=== PATIENT | male | born 1950 | race Asian ===

== ENCOUNTER 2017-02-23 14:59 | Emergency (ER) | payer OTHER ==
[~2017-02-23] VITALS: Ht 180.3 cm; Wt 68.0 kg
[~2017-02-23 14:59] MED LIST: ABILIFY5 MG PO; ALPHAGAN P 5 ML5 ML LEFT EYE; ARTIFICIAL TEAR1 OI1 OP; ASPIRIN81 M1 PO; BENADRYL50 MG PO; CIPRO500 MG PO; GLIPIZIDE5 M2 PO; METFORMIN500 MG PO; PHENERGAN/DEXTRO5 ML PO; RESTORIL15 MG PO; ZOLOFT20 MG/ML PO; lactinex PO
[2017-02-23 15:08] VITALS: BP 102/60
--- NOTE | 2017-02-23 15:30 | NUR ---
PATIENT PRESENTS TO ED WITH RASH TO SCALP . PT STATES DENIES PRURITUS,DRAINAGE, BLEEDING, PAIN . DENIES N/V/D; SKIN IS PINK/WARM/DRY; AAOX4 WITH EVEN AND STEADY GAIT; LUNGS CLEAR BL; HR EVEN AND REGULAR; PT DENIES ANY FEVER, CP, SOB, OR COUGH AT THIS TIME; PATIENT STATES PAIN OF 0/10 AT THIS TIME; VSS; PATIENT POSITIONED FOR COMFORT; HOB ELEVATED; BEDRAILS UP X2; BED DOWN. ER MD MADE AWARE OF PT STATUS.
--- NOTE | 2017-02-23 15:30 | NUR ---
PATIENT PRESENTS TO ED WITH RASH TO SCALP . PT STATES DENIES ITCHING BLEEDING PAIN . DENIES N/V/D; SKIN IS PINK/WARM/DRY; AAOX4 WITH EVEN AND STEADY GAIT; LUNGS CLEAR BL; HR EVEN AND REGULAR; PT DENIES ANY FEVER, CP, SOB, OR COUGH AT THIS TIME; PATIENT STATES PAIN OF 0/10 AT THIS TIME; VSS; PATIENT POSITIONED FOR COMFORT; HOB ELEVATED; BEDRAILS UP X2; BED DOWN. ER MD MADE AWARE OF PT STATUS.
--- NOTE | 2017-02-23 16:54 | NUR ---
Patient discharged with v/s stable. Written and verbal after care instructions given and explained. Patient alert, oriented and verbalized understanding of instructions. Wheel Chair Assisted with to car. All questions addressed prior to discharge. ID band removed. Patient advised to follow up with PMD. Rx of CLOTRIMAZOLE/ SELENIUM given. Patient educated on indication of medication including possible reaction and side effects. Opportunity to ask questions provided and answered. SPOKE WITH YOLIS Olocode [facility] [phone], INFORMED HER WE ARE SENDING PT BACK WITH A RX AND TO F/U WITH ADDRESS AND NUMBER PROVIDED ON DC PAPERS
[2017-02-23 16:55] VITALS: BP 123/74
== END 2017-02-23 16:54 | disposition home or self-care (01) ==
LOC: MED 14:59
DX: L98.8 Other specified disorders of the skin and subcutaneous tissue (principal); E11.9 Type 2 diabetes mellitus without complications; Z98.890 Other specified postprocedural states

== ENCOUNTER 2017-11-22 16:05 | Inpatient (IN) | payer OTHER ==
[~2017-11-22] VITALS: Ht 180.3 cm; Wt 74.8 kg
[~2017-11-22 16:05] MED LIST changes: -ABILIFY5 MG PO; -ALPHAGAN P 5 ML5 ML LEFT EYE; +ARIP5TAB8 PO; -ARTIFICIAL TEAR1 OI1 OP; +ASPI81CT89 PO; -ASPIRIN81 M1 PO; +BEN50 PO; -BENADRYL50 MG PO; +BRIM5SOL1 LEFT EYE; +CIPR500T4 PO; -CIPRO500 MG PO; +DM H5SYR PO; +GLIP5TAB13 PO; -GLIPIZIDE5 M2 PO; +GLU500 PO; -METFORMIN500 MG PO; -PHENERGAN/DEXTRO5 ML PO; -RESTORIL15 MG PO; +TEMA15CA24 PO; -ZOLOFT20 MG/ML PO; +[UNRECOGNIZED DRUG - CODE] OP; +[UNRECOGNIZED DRUG - CODE] PO
[2017-11-22 16:09] VITALS: BP 127/73
[2017-11-22] MEDS ORDERED: BRIM5SOL1 OP (16:37)
[2017-11-22] MEDS ORDERED: GLIP10TE PO (16:58)
[2017-11-22] MEDS ORDERED: GLIP5TAB4 PO (16:58)
[2017-11-22] MEDS ORDERED: FERR325E14 PO (16:58)
[2017-11-22] MEDS ORDERED: MULT-1736 PO (16:58)
[2017-11-22] MEDS ORDERED: DOCUSATE PO (16:58)
[2017-11-22] MEDS ORDERED: TIM.5OS OP (17:13)
[2017-11-22] MEDS ORDERED: KETO2CRE3 TP (17:13)
[2017-11-22] MEDS ORDERED: GLIP10TA3 PO (17:13)
[2017-11-22] MEDS ORDERED: CALC-567 PO (17:13)
[2017-11-22] MEDS ORDERED: PANT40EC28 PO (17:13)
[2017-11-22] MEDS ORDERED: SITA50TA3 PO (17:13)
[2017-11-22] MEDS ORDERED: INSU100S22 SUBQ ×2 (17:13→17:37)
[2017-11-22 17:22] LABS: ACETONE, SERUM NEGATIVE (NEGATIVE)
[2017-11-22 17:25] LABS: BASOPHILS # (AUTO) 0.1 K/uL (0.00-0.22); BASOPHILS % (AUTO) 0.6 % (0.0-2.0); EOSINOPHILS % (AUTO) 0.1 % (0.0-4.0); HEMATOCRIT 44.4 % (36-52); HEMOGLOBIN 14.5 g/dL (12.0-18.0); LYMPHOCYTES # (AUTO) 0.8 K/uL (2.0-11.5); LYMPHOCYTES % (AUTO) 5.9 % (20.5-51.1); MEAN CORPUSCULAR HEMOGLOBIN 26 pg (27-31); MEAN CORPUSCULAR HGB CONC 33 g/dL (33-37); MEAN CORPUSCULAR VOLUME 80 fL (80-94); MONOCYTES % (AUTO) 7.6 % (1.7-9.3); NEUTROPHILS # (AUTO) 10.9 K/uL (1.8-7.7); NEUTROPHILS % (AUTO) 85.8 % (42.2-75.2); PLATELET COUNT (AUTO) 213 K/uL (140-450); RED BLOOD CELL COUNT(AUTO) 5.57 MIL/uL (4.20-6.10); RED CELL DISTRIBUTION WIDTH 12.3 % (11.6-13.7); WHITE BLOOD COUNT (AUTO) 12.8 K/uL (4.8-10.8)
[2017-11-22 17:30] LABS: LIPASE 120 U/L (73-393)
[2017-11-22 17:33] LABS: ALBUMIN 3.6 g/dL (3.4-5.0); ANION GAP 14.4 (8-16); CARBON DIOXIDE 24.1 mmol/L (21-32); CREATININE 2.1 mg/dL (0.7-1.3); POTASSIUM 4.5 mmol/L (3.5-5.1); TOTAL BILIRUBIN 0.9 mg/dL (0.0-1.0)
[2017-11-22] MEDS ORDERED: BACTO TP (17:50)
[2017-11-22] MEDS ORDERED: INSULIN REGULAR, HUMAN 100 UNIT/ML VIAL SUBQ ONE (17:55)
[2017-11-22] MEDS ORDERED: [UNRECOGNIZED DRUG - CODE] TP (17:55)
[2017-11-22] MEDS ORDERED: TAMS0.4C96 PO (17:55)
[2017-11-22] MEDS ORDERED: BIMA2.5S3 OP (17:55)
[2017-11-22] MEDS ORDERED: ACET-7568 PO (17:55)
[2017-11-22] MEDS ORDERED: LOTC TP (17:56)
[2017-11-22] MEDS ORDERED: ACETAMINOPHEN 325 MG TAB PO PRN (18:20)
[2017-11-22] MEDS ORDERED: ONDANSETRON 4 MG/2 ML VIAL IVP PRN (18:20)
[2017-11-22] MEDS ORDERED: ALBUTEROL SULFATE/IPRATROPIU 3 ML SOL IH PRN (18:20)
[2017-11-22] MEDS ORDERED: HYDROcodone/APAP 7.5/325 MG 1 TAB PO PRN (18:20)
[2017-11-22] MEDS ORDERED: DEXTROSE 50% 50 ML SYR IVP PRN (18:20)
[2017-11-22] MEDS ORDERED: LEVOFLOXACIN 750 MG/D5W PREMIX 150 ML IV SCH (18:30)
[2017-11-22] MEDS ORDERED: CLINDAMYCIN 600 MG in DEXTROSE 5% 50 ML IV SCH (18:30)
[2017-11-22 18:50] LABS: APPEARANCE,URINE HAZY (CLEAR); BILIRUBIN,URINE NEGATIVE (NEGATIVE); BLOOD, URINE 2+ (NEGATIVE); COLOR,URINE YELLOW (YELLOW); LEUKOCYTE ESTERASE ,URINE NEGATIVE (NEGATIVE); NITRITE, URINE NEGATIVE (NEGATIVE); UGLUCOSE 3+ (NEGATIVE)
[2017-11-22 19:13] LABS: RBC,URINE 3-10 (FEW) /HPF (0-5)
[2017-11-22 19:33] LABS: PROTHROMBIN TIME 10.2 secs (10.8-13.4)
[2017-11-22 19:45] VITALS: BP 131/65
[2017-11-22 20:00] LABS: FREE T4 (FREE THYROXINE) 1.15 ng/dL (0.76-1.46); MAGNESIUM 2.2 mg/dL (1.8-2.4); THYROID STIMULATING HORMONE 4.01 uIU/mL (0.34-3.74)
[2017-11-22] MEDS: ALBUTEROL SULFATE/IPRATROPIU 3 ML SOL IH SCH (20:24)
[2017-11-22] MEDS ORDERED: CLINDAMYCIN 600 MG/4 ML VIAL ONE (20:28)
[2017-11-22] MEDS: NACL 0.9% 1,000 ML IV SCH (20:30)
[2017-11-22 20:55] LABS: ANION GAP 12.4 (8-16); CARBON DIOXIDE 24.9 mmol/L (21-32); CREATININE 2.1 mg/dL (0.7-1.3); POTASSIUM 4.3 mmol/L (3.5-5.1)
[2017-11-22] MEDS: INSULIN LISPRO SLIDING SCALE 100 UNITS/ML VIAL SUBQ PRN ×2 (21:23→23:00)
[2017-11-22] MEDS: BLOOD GLUCOSE MONITORING 1 DEV DEV FS SCH (21:24)
[2017-11-22] MEDS: DOCUSATE SODIUM 100 MG GELCAP PO SCH (21:25)
[2017-11-23] VITALS: BP 115/55
[2017-11-23] MEDS ORDERED: ACETAMINOPHEN 325 MG TAB PO PRN (00:10)
[2017-11-23] MEDS ORDERED: diphenhydrAMINE 50 MG CAP PO SCH (00:10)
[2017-11-23 04:00] VITALS: BP 112/58
[2017-11-23] MEDS ORDERED: CLINDAMYCIN 600 MG/4 ML VIAL ONE (04:54)
[2017-11-23] MEDS: CLINDAMYCIN 600 MG in DEXTROSE 5% 50 ML IV SCH ×3 (05:05→21:22)
[2017-11-23] MEDS: BLOOD GLUCOSE MONITORING 1 DEV DEV FS SCH ×4 (05:56→21:32)
[2017-11-23 07:00] LABS: BASOPHILS # (AUTO) 0.1 K/uL (0.00-0.22); BASOPHILS % (AUTO) 1.5 % (0.0-2.0); EOSINOPHILS % (AUTO) 0.3 % (0.0-4.0); HEMATOCRIT 41.3 % (36-52); HEMOGLOBIN 13.4 g/dL (12.0-18.0); LYMPHOCYTES # (AUTO) 0.6 K/uL (2.0-11.5); LYMPHOCYTES % (AUTO) 11.7 % (20.5-51.1); MEAN CORPUSCULAR HEMOGLOBIN 26 pg (27-31); MEAN CORPUSCULAR HGB CONC 33 g/dL (33-37); MEAN CORPUSCULAR VOLUME 81 fL (80-94); MONOCYTES # (AUTO) 0.5 K/uL (0.8-1.0); MONOCYTES % (AUTO) 9.7 % (1.7-9.3); NEUTROPHILS % (AUTO) 76.8 % (42.2-75.2); PLATELET COUNT (AUTO) 196 K/uL (140-450); RED BLOOD CELL COUNT(AUTO) 5.08 MIL/uL (4.20-6.10); RED CELL DISTRIBUTION WIDTH 12.2 % (11.6-13.7); WHITE BLOOD COUNT (AUTO) 5.2 K/uL (4.8-10.8)
[2017-11-23 07:26] LABS: ANION GAP 13.3 (8-16); CARBON DIOXIDE 22.7 mmol/L (21-32)
[2017-11-23 07:34] LABS: PHOSPHORUS 2.6 mg/dL (2.5-4.9)
[2017-11-23] MEDS: ALBUTEROL SULFATE/IPRATROPIU 3 ML SOL IH SCH ×3 (07:50→20:02)
[2017-11-23 08:00] VITALS: BP 121/80
[2017-11-23] MEDS ORDERED: KETOCONAZOLE 2% 15 GM TUBE TP SCH (09:00)
[2017-11-23] MEDS ORDERED: CLOTRIMAZOLE 1% 30 GM CRM TUBE TP SCH (09:00)
[2017-11-23] MEDS ORDERED: PETROLATUM OP SCH (09:00)
[2017-11-23] MEDS ORDERED: SERTRALINE 50 MG TAB PO SCH (09:00)
[2017-11-23] MEDS ORDERED: NON-FORMULARY ITEM (Calcium Carbonate/Vitamin D3 (Oyster Shell Calcium-Vit D Tab) 1 TAB) PO SCH (09:00)
[2017-11-23] MEDS ORDERED: metFORMIN 500 MG TAB PO SCH (09:00)
[2017-11-23] MEDS ORDERED: MINERAL OIL OP SCH (09:00)
[2017-11-23] MEDS ORDERED: KETOCONAZOLE TP SCH (09:00)
[2017-11-23] MEDS ORDERED: LANOLIN OP SCH (09:00)
[2017-11-23] MEDS: DOCUSATE SODIUM 100 MG GELCAP PO SCH ×2 (09:00→09:27)
[2017-11-23] MEDS ORDERED: glipiZIDE 10 MG TAB PO SCH (09:00)
[2017-11-23] MEDS ORDERED: glipiZIDE 5 MG TAB PO SCH (09:00)
[2017-11-23] MEDS: TIMOLOL OP 0.5% 5 ML BTL OP SCH ×2 (09:26→21:45)
[2017-11-23] MEDS: ARIPiprazole 10 MG TAB PO SCH (09:26)
[2017-11-23] MEDS: PANTOPRAZOLE 40 MG TABEC PO SCH (09:26)
[2017-11-23] MEDS: LACTOBACILLUS RHAMNOSUS GG 1 EACH CAP PO SCH (09:27)
[2017-11-23] MEDS: MULTIVITAMIN/MINERALS 1 TAB PO SCH (09:27)
[2017-11-23] MEDS: FERROUS SULFATE 325 MG TABEC PO SCH (09:27)
[2017-11-23] MEDS: ATORVASTATIN 20 MG TAB PO SCH (09:27)
[2017-11-23] MEDS: NACL 0.9% 1,000 ML IV SCH ×2 (09:34→16:22)
[2017-11-23] MEDS: ASPIRIN 81 MG TAB.CHEW PO SCH (09:34)
[2017-11-23] MEDS: MUPIROCIN 2% OINT 22 GM TUBE TP SCH ×2 (10:20→21:26)
[2017-11-23] MEDS ORDERED: CALCIUM CARB/VIT-D 500 MG/200 IU 1 TAB PO SCH (11:00)
[2017-11-23 12:00] VITALS: BP 115/56
[2017-11-23] MEDS: INSULIN LISPRO SLIDING SCALE 100 UNITS/ML VIAL SUBQ PRN ×3 (12:42→21:37)
[2017-11-23] MEDS: CLOTRIMAZOLE 1% 30 GM CRM TUBE TP SCH ×2 (14:08→21:27)
[2017-11-23] MEDS: ARTIFICIAL TEARS OPHTH OINT 3.5 GM TUBE OP SCH ×3 (14:09→21:24)
[2017-11-23 16:00] VITALS: BP 120/63
[2017-11-23] MEDS ORDERED: ARTIFICIAL TEARS OPHTH OINT 3.5 GM TUBE BOTH EYES SCH (17:00)
[2017-11-23 20:00] VITALS: BP_SYST 141; BP_DIAS 141; BP_DIAS 73
[2017-11-23] MEDS ORDERED: TIMOLOL OP 0.5% 5 ML BTL LEFT EYE SCH (21:00)
[2017-11-23] MEDS ORDERED: BIMATOPROST OP SCH (21:00)
[2017-11-23] MEDS: TAMSULOSIN 0.4 MG CAP PO SCH (21:27)
[2017-11-23] MEDS: LATANOPROST 0.005% OP 2.5 ML BTL OP SCH (21:46)
[2017-11-24] VITALS: BP 134/73
[2017-11-24] MEDS: NACL 0.9% 1,000 ML IV SCH ×4 (00:59→18:08)
[2017-11-24 04:00] VITALS: BP 139/89
[2017-11-24] MEDS: CLINDAMYCIN 600 MG in DEXTROSE 5% 50 ML IV SCH ×3 (04:32→21:36)
[2017-11-24] MEDS: BLOOD GLUCOSE MONITORING 1 DEV DEV FS SCH ×4 (06:23→21:45)
[2017-11-24] MEDS: INSULIN LISPRO SLIDING SCALE 100 UNITS/ML VIAL SUBQ PRN ×3 (06:25→17:28)
[2017-11-24 06:53] LABS: BASOPHILS # (AUTO) 0.1 K/uL (0.00-0.22); BASOPHILS % (AUTO) 0.9 % (0.0-2.0); EOSINOPHILS # (AUTO) 0.2 K/uL (0-0.4); EOSINOPHILS % (AUTO) 2.4 % (0.0-4.0); HEMATOCRIT 39.4 % (36-52); HEMOGLOBIN 12.8 g/dL (12.0-18.0); LYMPHOCYTES # (AUTO) 0.8 K/uL (2.0-11.5); LYMPHOCYTES % (AUTO) 12.4 % (20.5-51.1); MEAN CORPUSCULAR HEMOGLOBIN 27 pg (27-31); MEAN CORPUSCULAR HGB CONC 33 g/dL (33-37); MEAN CORPUSCULAR VOLUME 82 fL (80-94); MONOCYTES # (AUTO) 0.6 K/uL (0.8-1.0); MONOCYTES % (AUTO) 9.1 % (1.7-9.3); NEUTROPHILS % (AUTO) 75.2 % (42.2-75.2); PLATELET COUNT (AUTO) 181 K/uL (140-450); RED BLOOD CELL COUNT(AUTO) 4.83 MIL/uL (4.20-6.10); RED CELL DISTRIBUTION WIDTH 12.7 % (11.6-13.7); WHITE BLOOD COUNT (AUTO) 6.7 K/uL (4.8-10.8)
[2017-11-24] MEDS: ALBUTEROL SULFATE/IPRATROPIU 3 ML SOL IH SCH ×3 (07:19→19:51)
[2017-11-24 07:23] LABS: CARBON DIOXIDE 23.9 mmol/L (21-32); CREATININE 1.1 mg/dL (0.7-1.3); POTASSIUM 3.9 mmol/L (3.5-5.1)
[2017-11-24 07:30] LABS: MAGNESIUM 1.8 mg/dL (1.8-2.4); PHOSPHORUS 2.6 mg/dL (2.5-4.9)
[2017-11-24 08:07] VITALS: BP 125/62
[2017-11-24] MEDS: LACTOBACILLUS RHAMNOSUS GG 1 EACH CAP PO SCH (08:42)
[2017-11-24] MEDS: DOCUSATE SODIUM 100 MG GELCAP PO SCH (08:42)
[2017-11-24] MEDS: ATORVASTATIN 20 MG TAB PO SCH (08:42)
[2017-11-24] MEDS: FERROUS SULFATE 325 MG TABEC PO SCH (08:42)
[2017-11-24] MEDS: CLOTRIMAZOLE 1% 30 GM CRM TUBE TP SCH ×3 (08:43→21:13)
[2017-11-24] MEDS: MULTIVITAMIN/MINERALS 1 TAB PO SCH (08:43)
[2017-11-24] MEDS: PANTOPRAZOLE 40 MG TABEC PO SCH (08:43)
[2017-11-24] MEDS: MUPIROCIN 2% OINT 22 GM TUBE TP SCH ×3 (08:43→21:13)
[2017-11-24] MEDS: CALCIUM CARB/VIT-D 500 MG/200 IU 1 TAB PO SCH (08:43)
[2017-11-24] MEDS: ARIPiprazole 10 MG TAB PO SCH (08:44)
[2017-11-24] MEDS: ASPIRIN 81 MG TAB.CHEW PO SCH (08:44)
[2017-11-24] MEDS: ARTIFICIAL TEARS OPHTH OINT 3.5 GM TUBE OP SCH ×5 (08:44→21:12)
[2017-11-24] MEDS: TIMOLOL OP 0.5% 5 ML BTL OP SCH ×3 (08:45→21:11)
[2017-11-24] MEDS ORDERED: HYDRAGUARD CREAM TP PRN (09:35)
[2017-11-24 12:00] VITALS: BP 151/78
[2017-11-24] MEDS: BRIMONIDINE TARTRATE 0.2% OP 5 ML BTL OP SCH ×3 (13:40→21:11)
[2017-11-24 16:00] VITALS: BP 124/61
[2017-11-24] MEDS: guaiFENesin/CODEINE 100/10MG 5 ML UDC PO PRN (17:25)
[2017-11-24] MEDS ORDERED: LEVOFLOXACIN 750 MG/D5W PREMIX 150 ML IV SCH (18:00)
[2017-11-24 20:00] VITALS: BP 105/58
[2017-11-24] MEDS: TAMSULOSIN 0.4 MG CAP PO SCH ×2 (21:00→21:10)
[2017-11-24] MEDS: LATANOPROST 0.005% OP 2.5 ML BTL OP SCH (21:00)
[2017-11-25] VITALS: BP 139/55
[2017-11-25] MEDS: NACL 0.9% 1,000 ML IV SCH ×2 (02:21→05:15)
[2017-11-25 04:00] VITALS: BP 138/67
[2017-11-25] MEDS: CLINDAMYCIN 600 MG in DEXTROSE 5% 50 ML IV SCH ×2 (04:58→13:00)
[2017-11-25] MEDS: guaiFENesin/CODEINE 100/10MG 5 ML UDC PO PRN ×2 (05:38→11:58)
[2017-11-25] MEDS: BRIMONIDINE TARTRATE 0.2% OP 5 ML BTL OP SCH ×2 (05:39→13:58)
[2017-11-25] MEDS: BLOOD GLUCOSE MONITORING 1 DEV DEV FS SCH ×3 (06:27→16:41)
[2017-11-25] MEDS: INSULIN LISPRO SLIDING SCALE 100 UNITS/ML VIAL SUBQ PRN ×2 (06:31→12:02)
[2017-11-25] MEDS: ALBUTEROL SULFATE/IPRATROPIU 3 ML SOL IH SCH ×3 (06:59→19:10)
[2017-11-25 07:17] LABS: BASOPHILS % (AUTO) 0.8 % (0.0-2.0); EOSINOPHILS # (AUTO) 0.3 K/uL (0-0.4); EOSINOPHILS % (AUTO) 5.4 % (0.0-4.0); HEMATOCRIT 39.1 % (36-52); HEMOGLOBIN 12.8 g/dL (12.0-18.0); LYMPHOCYTES # (AUTO) 0.7 K/uL (2.0-11.5); MEAN CORPUSCULAR HEMOGLOBIN 26 pg (27-31); MEAN CORPUSCULAR HGB CONC 33 g/dL (33-37); MEAN CORPUSCULAR VOLUME 80 fL (80-94); MONOCYTES # (AUTO) 0.6 K/uL (0.8-1.0); MONOCYTES % (AUTO) 9.4 % (1.7-9.3); NEUTROPHILS # (AUTO) 4.3 K/uL (1.8-7.7); NEUTROPHILS % (AUTO) 73.4 % (42.2-75.2); PLATELET COUNT (AUTO) 189 K/uL (140-450); RED BLOOD CELL COUNT(AUTO) 4.89 MIL/uL (4.20-6.10); RED CELL DISTRIBUTION WIDTH 12.2 % (11.6-13.7); WHITE BLOOD COUNT (AUTO) 5.9 K/uL (4.8-10.8)
[2017-11-25 07:33] LABS: ANION GAP 14.9 (8-16); CARBON DIOXIDE 21.8 mmol/L (21-32); POTASSIUM 3.7 mmol/L (3.5-5.1)
[2017-11-25 07:38] LABS: MAGNESIUM 1.5 mg/dL (1.8-2.4); PHOSPHORUS 2.4 mg/dL (2.5-4.9)
[2017-11-25 08:00] VITALS: BP 122/60
[2017-11-25] MEDS: DOCUSATE SODIUM 100 MG GELCAP PO SCH (09:00)
[2017-11-25] MEDS: INSULIN LANTUS 100 UNITS/ML 10 ML VIAL SUBQ SCH ×2 (09:00→10:01)
[2017-11-25] MEDS: ATORVASTATIN 20 MG TAB PO SCH (09:47)
[2017-11-25] MEDS: LACTOBACILLUS RHAMNOSUS GG 1 EACH CAP PO SCH (09:47)
[2017-11-25] MEDS: PANTOPRAZOLE 40 MG TABEC PO SCH (09:48)
[2017-11-25] MEDS: ARIPiprazole 10 MG TAB PO SCH (09:48)
[2017-11-25] MEDS: FERROUS SULFATE 325 MG TABEC PO SCH (09:48)
[2017-11-25] MEDS: MULTIVITAMIN/MINERALS 1 TAB PO SCH (09:48)
[2017-11-25] MEDS: ASPIRIN 81 MG TAB.CHEW PO SCH (09:48)
[2017-11-25] MEDS: CALCIUM CARB/VIT-D 500 MG/200 IU 1 TAB PO SCH (09:48)
[2017-11-25] MEDS: TIMOLOL OP 0.5% 5 ML BTL OP SCH (09:50)
[2017-11-25] MEDS: CLOTRIMAZOLE 1% 30 GM CRM TUBE TP SCH (09:51)
[2017-11-25] MEDS: ARTIFICIAL TEARS OPHTH OINT 3.5 GM TUBE OP SCH ×3 (09:51→16:56)
[2017-11-25] MEDS: MUPIROCIN 2% OINT 22 GM TUBE TP SCH (09:53)
[2017-11-25 12:00] VITALS: BP 152/85
[2017-11-25] MEDS ORDERED: ASCO1CAP75 PO (13:47)
[2017-11-25] MEDS ORDERED: CLIN300C2 PO (13:47)
[2017-11-25] MEDS ORDERED: LEVO750T2 PO (13:47)
[2017-11-25] MEDS ORDERED: INSU100S22 SUBQ (13:47)
[2017-11-25] MEDS ORDERED: ONDA4TAB PO (13:49)
[2017-11-25] MEDS ORDERED: PHE6.25L PO (13:52)
[2017-11-25 16:00] VITALS: BP 115/56
[2017-11-25] MEDS ORDERED: INSULIN LANTUS 100 UNITS/ML 10 ML VIAL SUBQ SCH (21:00)
== END 2017-11-25 20:40 | disposition home or self-care (01) | DRG 871 ==
LOC: MED 16:05 → MTU 18:26
PROVIDERS: ADMIT Family Medicine; ATTEND Family Medicine
DX: A41.9 Sepsis, unspecified organism (principal); J69.0 Pneumonitis due to inhalation of food and vomit; N17.0 Acute kidney failure with tubular necrosis; J96.21 Acute and chronic respiratory failure with hypoxia; D68.59 Other primary thrombophilia; E11.21 Type 2 diabetes mellitus with diabetic nephropathy; E11.51 Type 2 diabetes mellitus with diabetic peripheral angiopathy without gangrene; E87.1 Hypo-osmolality and hyponatremia; E11.65 Type 2 diabetes mellitus with hyperglycemia; G90.9 Disorder of the autonomic nervous system, unspecified; E78.5 Hyperlipidemia, unspecified; E86.0 Dehydration; G90.8 Other disorders of autonomic nervous system; R19.7 Diarrhea, unspecified; R26.9 Unspecified abnormalities of gait and mobility; F03.90 Unspecified dementia, unspecified severity, without behavioral disturbance, psychotic disturbance, mood disturbance, and anxiety; H40.9 Unspecified glaucoma; H54.8 Legal blindness, as defined in USA; I10 Essential (primary) hypertension; Z89.511 Acquired absence of right leg below knee; Z79.82 Long term (current) use of aspirin; Z79.899 Other long term (current) drug therapy; Z88.1 Allergy status to other antibiotic agents; Z88.0 Allergy status to penicillin; Z88.8 Allergy status to other drugs, medicaments and biological substances
CPT/HCPCS: 36415; 70450; 71045; 80048; 80053; 81001; 82009; 82150; 82948; 83036; 83605; 83690; 83735; 83880; 84100; 84439; 84443; 84484; 85025; 85610; 85730; 87040; 87081; 87086; 92610; 93005; 93880; 93925; 93970; 94640; 97799; 99285; C1758; J1815; J1956; J2405; J3490; J7030; J7060; J7620; Q0092

== ENCOUNTER 2018-01-12 14:29 | Emergency (ER) | payer OTHER ==
[~2018-01-12] VITALS: Ht 172.7 cm; Wt 77.1 kg
[~2018-01-12 14:29] MED LIST changes: +ACET-7568 PO; +ASCO1CAP75 PO; +BIMA2.5S3 OP; -BRIM5SOL1 LEFT EYE; +BRIM5SOL1 OP; +CALC-567 PO; -CIPR500T4 PO; +CLIN300C2 PO; -DM H5SYR PO; +DOCUSATE PO; +FERR325E14 PO; +GLIP10TA3 PO; -GLIP5TAB13 PO; +GLIP5TAB4 PO; +INSU100S22 SUBQ; +KETO2CRE3 TP; +LEVO750T2 PO; +LOTC TP; +MULT-1736 PO; +PANT40EC28 PO; +PHE6.25L PO; +SITA50TA3 PO; +TAMS0.4C96 PO; -TEMA15CA24 PO; +TIM.5OS OP; +[UNRECOGNIZED DRUG - CODE] TP; -lactinex PO
[2018-01-12 14:32] VITALS: BP 157/8
[2018-01-12 15:03] VITALS: BP 153/92
== END 2018-01-12 15:07 | disposition home or self-care (01) ==
LOC: MED 14:29
DX: B35.0 Tinea barbae and tinea capitis (principal); E11.9 Type 2 diabetes mellitus without complications; I10 Essential (primary) hypertension; Z88.0 Allergy status to penicillin; Z88.1 Allergy status to other antibiotic agents; Z88.8 Allergy status to other drugs, medicaments and biological substances
CPT/HCPCS: 99283

== ENCOUNTER 2018-03-20 08:26 | Inpatient (IN) | payer OTHER ==
[~2018-03-20] VITALS: Ht 170.2 cm; Wt 82.6 kg
--- NOTE | 2018-03-20 08:26 | NUR ---
Patient TORRES MESSER from [facility], transferred to bed 7. RN evaluatng patient at bedside.
[2018-03-20 08:28] VITALS: BP 119/56
--- NOTE | 2018-03-20 08:38 | NUR ---
Dr. Cervantes evaluating patient at bedside.
[2018-03-20] MEDS ORDERED: NACL 0.9% 1,000 ML IV ONE (08:40)
[2018-03-20] MEDS ORDERED: ACET-7568 PO (08:56)
--- NOTE | 2018-03-20 09:00 | NUR ---
TALKED TO TYLOR HENDERSON, PER RN PT FOUND NEXT TO THE NIGHT STAND S/P UNOBSERVED FALL WITH ALOC, DENIES ALOC, N/V/D OR FEVER; PT WAS USUALLY ALERT PER STAFF; DR ALVAREZ NOTIFIED
--- NOTE | 2018-03-20 09:00 | NUR ---
67YO M BIBA FOR ALOC FROM [facility]. PER EMS PT EAS FOUND ALTERED ON FLOOR WITH HEAD ON NIGHTSTAND. PT BACELINE IS AAOX4. ALERT. PT NON VERBAL AT THIS TIME. SCALING NOTED TO SCALP WITH SCALP IRRITATION. NO LACERATONS, HEMATOMA , OR BLEEDING. BLIND IN RIGHT EYE. L PUPIL PERRLA 3MM. PAIN 0/10, RR SHALLOW, EVEN AND UNLABORED, LS CLEAR WITH LEFT BACE DEMINISHED. O2 SAT AT AT 88% RA TO 95% 2L/MIN O2 VIA N/C. BS ACTIVE X4. PT INCONTINENT WITH BREIF ON. R BKA. PT WITH ESCORIATION TO THE LLE. ER MD MADE AWARE. WILL CONTINUE TO MONITIOR.
--- NOTE | 2018-03-20 09:15 | NUR ---
PT BACK FROM CT, IN NO APPEARENT DISTRESS, MONITORS REAPPLIED, O2 AT 2L/MIN. O2 SAT AT 94%
[2018-03-20] MEDS ORDERED: [UNRECOGNIZED DRUG - CODE] PO (09:16)
--- NOTE | 2018-03-20 09:17 | NUR ---
LAB AT BED SIDE
[2018-03-20] MEDS ORDERED: LEVEMIR SUBQ (09:18)
[2018-03-20] MEDS ORDERED: BACTO TP (09:19)
[2018-03-20] MEDS ORDERED: NYST1CRE8 TP (09:21)
--- NOTE | 2018-03-20 09:29 | NUR ---
PT IS AWAKE AND ALERT TO PLACE AND SELF. PT ASKING FOR OATMEAL.
[2018-03-20 09:32] LABS: HEMATOCRIT 40.1 % (36-52); HEMOGLOBIN 13.4 g/dL (12.0-18.0); MEAN CORPUSCULAR HEMOGLOBIN 26 pg (27-31); MEAN CORPUSCULAR HGB CONC 34 g/dL (33-37); MEAN CORPUSCULAR VOLUME 76.3 fL (80-94); PLATELET COUNT (AUTO) 345 K/uL (140-450); RED BLOOD CELL COUNT(AUTO) 5.26 MIL/uL (4.20-6.10); WHITE BLOOD COUNT (AUTO) 20.2 K/uL (4.8-10.8)
[2018-03-20] MEDS ORDERED: LEVOFLOXACIN 500 MG/D5W PREMIX 100 ML IV ONE (10:10)
--- NOTE | 2018-03-20 10:10 | NUR ---
PER DR ALVAREZ # 14 FR Urinary catheter inserted utilizing sterile technique. Immediate return of 150 ml JORY SLIGHTLY CLOUDY urine noted. Urine sample collected and sent to lab. Pt tolerated procedure WELL. DONE BY GILMER STUDENT WITH RN AT BEDSIDE.
[2018-03-20 10:15] LABS: LYMPHOCYTES % (MANUAL) 6 % (20-46); METAMYELOCYTES % 1 % (0-0); MONOCYTES % (MANUAL) 5 % (5-12); MYELOCYTES % 1 % (0-0)
[2018-03-20 10:16] LABS: ANION GAP 12.8 (8-16); CARBON DIOXIDE 26.3 mmol/L (21-32); CREATININE 1.4 mg/dL (0.7-1.3); POTASSIUM 4.1 mmol/L (3.5-5.1)
[2018-03-20 10:22] LABS: ALBUMIN 2.8 g/dL (3.4-5.0); TOTAL BILIRUBIN 0.8 mg/dL (0.0-1.0)
[2018-03-20 10:28] LABS: PROTHROMBIN TIME 10.5 secs (10.8-13.4)
[2018-03-20 10:35] LABS: APPEARANCE,URINE CLEAR (CLEAR); BILIRUBIN,URINE NEGATIVE (NEGATIVE); BLOOD, URINE 3+ (NEGATIVE); COLOR,URINE YELLOW (YELLOW); NITRITE, URINE NEGATIVE (NEGATIVE); UGLUCOSE 3+ (NEGATIVE)
[2018-03-20 10:42] LABS: RBC,URINE 20-50 /HPF (0-5)
[2018-03-20 10:44] LABS: LEUKOCYTE ESTERASE ,URINE TRACE (NEGATIVE)
[2018-03-20] MEDS ORDERED: INSULIN REGULAR, HUMAN 100 UNIT/ML VIAL IVP ONE (10:55)
--- NOTE | 2018-03-20 10:58 | NUR ---
PT PROVIDED WATER.
[2018-03-20] MEDS ORDERED: MORPHINE SULFATE 2 MG/ML SYR IVP PRN (11:30)
[2018-03-20] MEDS ORDERED: HYDROcodone/APAP 5/325 MG 1 TAB TAB PO PRN (11:30)
[2018-03-20] MEDS ORDERED: ONDANSETRON 4 MG/2 ML VIAL IM/IVP PRN (11:30)
[2018-03-20] MEDS ORDERED: DOCUSATE SODIUM 100 MG GELCAP PO PRN (11:30)
[2018-03-20] MEDS ORDERED: ALBUTEROL SULFATE/IPRATROPIU 3 ML SOL INH PRN (12:10)
[2018-03-20 12:17] LABS: CHOL/HDL RATIO 2.9 (1-4.5); MAGNESIUM 1.8 mg/dL (1.8-2.4); PHOSPHORUS 2.2 mg/dL (2.5-4.9); THYROID STIMULATING HORMONE 2.84 uIU/mL (0.34-3.74)
[2018-03-20] MEDS ORDERED: DEXTROSE 50% 50 ML SYR IVP PRN (12:25)
--- NOTE | 2018-03-20 12:30 | NUR ---
PT PROVIDED FOOD AND ASSISTED WITH EATING
[2018-03-20 12:50] VITALS: BP 137/71
[2018-03-20] MEDS ORDERED: NACL 0.9% 500 ML IV ONE (12:50)
--- NOTE | 2018-03-20 12:50 | NUR ---
RECEIVED PATIENT FROM ER VIA BED/GURNEY, TRANSFERRED PATIENT TO [facility] BED SAFELY. NO DISTRESS NOTED. DENIES ANY PAIN. RESPIRATIONS EVEN, UNLABORED, ON O2 2L/MIN VIA NC. V/S STABLE. AAOX2, CALM, COOPERATIVE, SKIN COLOR APPROPRIATE TO ETHNICITY, WARM TO TOUCH. IV SITE INTACT, PATENT AND STARTED ON IVF INFUSION PER MD ORDERS. ABDOMEN SOFT, NON-DISTENDED. LUNGS CTA ON ALL LOBES. HAS SKIN EXCORIATION ON LEFT LE, RIGHT MID BACK, AND RIGHT ELBOW. HAS SKIN REDNESS ON COCCYX. PICTURES ALREADY TAKEN BY ER NURSE. ORIENTED PATIENT TO ROOM AND CALL LIGHT. REVIEWED PLAN OF CARE WITH PATIENT. PATIENT VERBALIZED UNDERSTANDING, REINFORCEMENT NEEDED. SAFETY MEASURES IN PLACE, CALL LIGHT WITHIN REACH. WILL CONTINUE TO MONITOR.
[2018-03-20] MEDS ORDERED: ARIPiprazole 10 MG TAB PO SCH (12:55)
[2018-03-20] MEDS ORDERED: PANTOPRAZOLE 40 MG TABEC PO SCH (12:57)
[2018-03-20] MEDS ORDERED: PIPERACILLIN/TAZOBACTAM 3.375 GM in DEXTROSE 5% 50 ML IV SCH (13:00)
[2018-03-20] MEDS: ALBUTEROL SULFATE/IPRATROPIU 3 ML SOL IH SCH ×2 (13:00→19:48)
[2018-03-20] MEDS: NACL 0.9% 1,000 ML IV SCH ×2 (13:15→20:35)
--- NOTE | 2018-03-20 13:50 | NUR ---
Patient will be admitted to care of DR OJEDA. Admited to TELE. Will go to room 107B. Belongings list completed. Report to REGINE BELL .
--- NOTE | 2018-03-20 14:55 | NUR ---
PATIENT IS RESTING IN BED, NO COMPLAINTS OF PAIN. ALL SAFETY MEASURES IN PLACE. WILL CONTINUE TO MONITOR.
[2018-03-20 16:00] VITALS: BP 133/67
[2018-03-20] MEDS: BLOOD GLUCOSE MONITORING 1 DEV DEV FS SCH ×2 (16:30→20:33)
--- NOTE | 2018-03-20 16:30 | NUR ---
BLOOD GLUCOSE WAS 346. ADMINISTERED 4 UNITS OF HUMALOG. WILL CONTINUE TO MONITOR.
[2018-03-20] MEDS: INSULIN LISPRO SLIDING SCALE 100 UNITS/ML VIAL SUBQ PRN ×2 (17:31→20:32)
--- NOTE | 2018-03-20 19:05 | NUR ---
ENDORSED PLAN OF CARE TO LOOM MECHANIC RN. PATIENT IS IN STABLE CONDITION.
--- NOTE | 2018-03-20 19:06 | NUR ---
RECEIVED PATIENT FROM DAY SHIFT NURSE REGINE-ARABELLA. AAOX2, CALM, COOPERATIVE. ON 2L/NC. IV RIGHT WRIST #2OG-INTACT AND INFUSING WELL. HAS SKIN EXCORIATION ON LEFT LE, RIGHT MID BACK, AND RIGHT ELBOW. HAS SKIN REDNESS ON COCCYX. DISCUSSED PLAN OF CARE AND PATIENT VERBALIZED UNDERSTANDING, REINFORCEMENT NEEDED. BED IN LOWEST POSITION, BED BEAKS ON, BED ALARM ON. BED SIDE TABLE AND CALL LIGHT WITHIN REACH. WILL CONTINUE TO MONITOR.
[2018-03-20 20:00] VITALS: BP 119/64
--- NOTE | 2018-03-20 20:00 | NUR ---
VITAL SIGNS TAKEN AND TOLERATED WELL. BLOOD GLUCOSE 339-INSULIN COVERAGE NEEDED. WILL CONTINUE TO MONITOR.
[2018-03-20] MEDS: TAMSULOSIN 0.4 MG CAP PO SCH (20:28)
[2018-03-20] MEDS: CLINDAMYCIN 600 MG in DEXTROSE 5% 50 ML IV SCH (20:28)
[2018-03-20] MEDS: Z-GUARD PASTE TP SCH (20:34)
--- NOTE | 2018-03-20 20:35 | NUR ---
SCHEDULED MEDICATION GIVEN AND TOLERATED WELL. NO S/S OF RESPIRATORY DISTRESS OR DISCOMFORT. WILL CONTINUE TO MONITOR.
[2018-03-20] MEDS ORDERED: INSULIN LANTUS 100 UNITS/ML 10 ML VIAL SUBQ SCH (21:00)
[2018-03-20] MEDS ORDERED: glipiZIDE 10 MG TAB PO SCH (21:00)
--- NOTE | 2018-03-20 22:08 | NUR ---
PT RESTING IN BED. NO S/S OF RESPIRATORY DISTRESS OR DISCOMFORT. WILL CONTINUE TO MONITOR.
[2018-03-20] MEDS: ACETAMINOPHEN 325 MG TAB PO PRN (23:59)
[2018-03-21] VITALS: BP 121/67
--- NOTE | 2018-03-21 | NUR ---
VITAL SIGNS TAKEN. ORAL TEMPERATURE 98.6F, TEMPORAL TEMPERATURE 100.9. TYLENOL GIVEN FOR HIGH TEMPERATURE. HR INCREASING. WILL CONTINUE TO MONITOR.
--- NOTE | 2018-03-21 02:00 | NUR ---
TEMPORAL TEMPERATURE 99.6F, ORAL TEMPERATURE 99.6F. PT HR CONTINUES TO INCREASE. WILL LET DR. MENDOZA KNOW.
--- NOTE | 2018-03-21 02:14 | NUR ---
SPOKE WITH DR. MENDOZA. PT HR HAS BEEN INCREASING DESPITE HIS TEMPERATURE DECREASING. PT DOES NOT VERBALIZE IF HE IS IN PAIN OR ANY OTHER DISCOMFORT. DR. MENDOZA ORDERED AN EKG. WILL CONTINUE TO MONITOR.
[2018-03-21 04:00] VITALS: BP 91/49
--- NOTE | 2018-03-21 04:00 | NUR ---
VITAL SIGNS TAKEN AND TOLERATED WELL. NO S/S OF RESPIRATORY DISTRESS OR DISCOMFORT NOTED. HR CONTINUES TO BE ELEVATED. WILL CONTINUE TO MONITOR.
[2018-03-21] MEDS: CLINDAMYCIN 600 MG in DEXTROSE 5% 50 ML IV SCH ×3 (04:58→20:34)
--- NOTE | 2018-03-21 05:00 | NUR ---
SCHEDULED MEDICATION GIVEN AND TOLERATED WELL. BLOOD GLUCOSE 337-INSULIN COVERAGE NEEDED. WILL CONTINUE TO MONITOR.
--- NOTE | 2018-03-21 06:00 | NUR ---
PT SLEEPING IN BED. NO S/S OF RESPIRATORY DISTRESS OR DISCOMFORT AT THIS TIME. WILL CONTINUE TO MONITOR.
[2018-03-21] MEDS: BLOOD GLUCOSE MONITORING 1 DEV DEV FS SCH ×4 (06:33→20:34)
[2018-03-21] MEDS: INSULIN LISPRO SLIDING SCALE 100 UNITS/ML VIAL SUBQ PRN ×4 (06:35→20:38)
--- NOTE | 2018-03-21 06:35 | NUR ---
INSULIN GIVEN PER PROTOCOL. PT TOLERATED WELL. WILL CONTINUE TO MONITOR.
[2018-03-21] MEDS: ALBUTEROL SULFATE/IPRATROPIU 3 ML SOL IH SCH ×3 (07:00→19:49)
--- NOTE | 2018-03-21 07:06 | NUR ---
no hhn given due to high heart rate of 151 and pt was sleeping
--- NOTE | 2018-03-21 07:19 | NUR ---
ENDORSED PT CARE TO DAY SHIFT NURSE KRISTOFER FOR CONTINUITY OF CARE.
--- NOTE | 2018-03-21 07:21 | NUR ---
RECEIVED REPORT FROM RECREATIONAL VEHICLE REPAIRER RN. PATIENT IS IN STABLE CONDITION. PATIENT IS SLEEPING IN BED, AROUSABLE BY VOICE. NO DISTRESS NOTED. NO COMPLAINTS OF PAIN. LUNG SOUNDS ARE CLEAR/DIMINISHED BILATERALLY. HEART RATE IS TACHYCARDIC. ABRASIONS NOTED ON RIGHT ELBOW, RIGHT MID BACK, AND LLE. REDNESS TO SACRUM. PATIENT IS ON 2L NC. IV SITE IS ASYMPTOMATIC, RUNNING IVF PER MD ORDERS. ALL SAFETY MEASURES IN PLACE, CALL LIGHT WITHIN REACH. FALL PRECAUTIONS IN PLACE. WILL CONTINUE TO MONITOR.
--- NOTE | 2018-03-21 07:47 | NUR ---
VITALS ARE 99.0 AUXILLARY, 99.8 TEMPORAL, BP 96/48, O2 SAT 89%. DR. WEISS IS AWARE. WILL TITRATE O2 TO ABOVE 92% PER MD ORDERS.
[2018-03-21 08:00] VITALS: BP 96/48
[2018-03-21] MEDS ORDERED: TIMOLOL OP 0.5% 5 ML BTL BOTH EYES SCH (09:00)
[2018-03-21] MEDS ORDERED: INSULIN LANTUS 100 UNITS/ML 10 ML VIAL SUBQ SCH ×2 (09:00→21:00)
[2018-03-21] MEDS ORDERED: KETOCONAZOLE 2% 15 GM TUBE TP SCH (09:03)
[2018-03-21] MEDS ORDERED: SENNA 8.6 MG TAB PO SCH (09:04)
[2018-03-21] MEDS ORDERED: SODIUM PHOS / POTASSIUM PHOS 1 PKT PDR PO SCH (09:05)
[2018-03-21] MEDS: BRIMONIDINE TARTRATE 0.2% OP 5 ML BTL LEFT EYE SCH ×3 (09:37→16:12)
[2018-03-21] MEDS: KETOCONAZOLE 2% 15 GM TUBE TP SCH ×2 (09:37→09:54)
[2018-03-21] MEDS: ARIPiprazole 10 MG TAB PO SCH (09:38)
[2018-03-21] MEDS: TIMOLOL OP 0.5% 5 ML BTL LEFT EYE SCH ×2 (09:38→20:34)
[2018-03-21] MEDS: ASPIRIN 81 MG TAB.CHEW PO SCH (09:39)
[2018-03-21] MEDS: metFORMIN 500 MG TAB PO SCH ×3 (09:39→20:52)
[2018-03-21] MEDS: SERTRALINE 50 MG TAB PO SCH (09:39)
[2018-03-21] MEDS: PANTOPRAZOLE 40 MG TABEC PO SCH (09:39)
[2018-03-21] MEDS: Z-GUARD PASTE TP SCH ×2 (09:40→20:52)
[2018-03-21 09:41] LABS: ANION GAP 17.4 (8-16); CARBON DIOXIDE 22.7 mmol/L (21-32); CREATININE 1.6 mg/dL (0.7-1.3); HEMATOCRIT 35.9 % (36-52); HEMOGLOBIN 12.1 g/dL (12.0-18.0); MEAN CORPUSCULAR HEMOGLOBIN 26 pg (27-31); MEAN CORPUSCULAR HGB CONC 34 g/dL (33-37); MEAN CORPUSCULAR VOLUME 77.2 fL (80-94); PLATELET COUNT (AUTO) 314 K/uL (140-450); POTASSIUM 4.1 mmol/L (3.5-5.1); RED BLOOD CELL COUNT(AUTO) 4.65 MIL/uL (4.20-6.10); RED CELL DISTRIBUTION WIDTH 14.3 % (11.6-13.7); WHITE BLOOD COUNT (AUTO) 23.1 K/uL (4.8-10.8)
[2018-03-21 09:48] LABS: MAGNESIUM 1.6 mg/dL (1.8-2.4); PHOSPHORUS 2.9 mg/dL (2.5-4.9)
[2018-03-21] MEDS ORDERED: DILTIAZEM 25 MG/5 ML VIAL IVP SCH (09:55)
[2018-03-21] MEDS: NACL 0.9% 1,000 ML IV SCH ×2 (09:56→11:58)
[2018-03-21] MEDS: LEVOFLOXACIN 500 MG/D5W PREMIX 100 ML IV SCH (10:15)
[2018-03-21 10:31] LABS: EOSINOPHILS % (MANUAL) 0 % (0-4); LYMPHOCYTES % (MANUAL) 3 % (20-46); METAMYELOCYTES % 1 % (0-0); MONOCYTES % (MANUAL) 7 % (5-12); MYELOCYTES % 1 % (0-0)
--- NOTE | 2018-03-21 10:50 | NUR ---
EKG COMPLETE FROM RT AND DR. WEISS NOTIFIED. DR. WEISS ADVISED TO HOLD CARDIZEM IVP. PATIENT IS IN STABLE CONDITION WITH NO SIGNS OR SYMPTOMS OF DISTRESS. WILL CONTINUE TO MONITOR.
[2018-03-21] MEDS ORDERED: NACL 0.9% 1,000 ML IV ONE (11:00)
[2018-03-21] MEDS: ACETAMINOPHEN 325 MG TAB PO PRN (11:47)
--- NOTE | 2018-03-21 11:47 | NUR ---
ADMINISTERED TYLENOL FOR ELEVATED TEMPERATE PER MD ORDERS. PATIENT HAS NO SIGNS/SYMPTOMS OF DISTRESS. WILL CONTINUE TO MONITOR.
[2018-03-21 12:00] VITALS: BP 106/57
[2018-03-21 12:13] LABS: T4 (THYROXINE) 6.1 ug/dL (4.5-12.0)
--- NOTE | 2018-03-21 12:15 | NUR ---
US VENOUS BILATERAL LOWER EXTREMITIES REFUSED BY PATIENT. IMAGING PROCEDURE ALONG WITH RISKS AND BENEFITS DISCUSSED WITH PATIENT. PATIENT CONTINUES TO REFUSE. NOTIFIED.
--- NOTE | 2018-03-21 13:02 | NUR ---
SCHEDULED MEDICATIONS GIVEN AT THIS TIME PER MD ORDERS. NO COMPLAINTS OF PAIN. NO SIGNS OR SYMPTOMS OF DISTRESS. WILL CONTINUE TO MONITOR.
--- NOTE | 2018-03-21 13:18 | NUR ---
pt sleeping no hhn given no signs of distress noted
[2018-03-21] MEDS ORDERED: MAG SULF 2000 MG/WATER PREMIX 50 ML IV SCH (15:49)
--- NOTE | 2018-03-21 16:30 | NUR ---
PATIENT'S BLOOD GLUCOSE WAS 278. WILL ADMINISTER HUMALOG PER MD ORDERS. WILL CONTINUE TO MONITOR.
[2018-03-21 18:00] VITALS: BP 102/54
--- NOTE | 2018-03-21 19:15 | NUR ---
ENDORSED PLAN OF CARE TO CAP AND STUD MACHINE OPERATOR RN. PATIENT IS IN STABLE CONDITION.
--- NOTE | 2018-03-21 19:16 | NUR ---
RECEIVED PATIENT FROM DAY SHIFT NURSE REGINE-ARABELLA. AAOX2, CALM, COOPERATIVE. ON 2L/NC. IV RIGHT WRIST #2OG-INTACT AND INFUSING WELL. HAS SKIN EXCORIATION ON LEFT LE, RIGHT MID BACK, AND RIGHT ELBOW. HAS SKIN REDNESS ON COCCYX. DISCUSSED PLAN OF CARE HOWEVER PT STAYED QUIET AND DID NOT ANSWER; REINFORCEMENT NEEDED. BED IN LOWEST POSITION, BED BEAKS ON, BED ALARM ON. BED SIDE TABLE AND CALL LIGHT WITHIN REACH. WILL CONTINUE TO MONITOR.
[2018-03-21 20:00] VITALS: BP 108/56
--- NOTE | 2018-03-21 20:00 | NUR ---
VITAL SIGNS TAKEN AND TOLERATED WELL. NO S/S OF RESPIRATORY DISTRESS OR DISCOMFORT NOTED AT THIS TIME. WILL CONTINUE TO MONITOR.
--- NOTE | 2018-03-21 20:10 | NUR ---
BLOOD GLUCOSE 270-INSULIN COVERAGE NEEDED.
[2018-03-21] MEDS: TAMSULOSIN 0.4 MG CAP PO SCH ×2 (20:34→20:52)
--- NOTE | 2018-03-21 20:40 | NUR ---
SCHEDULED MEDICATION GIVEN HOWEVER PT REFUSED PO MEDICATIONS STATING, "LEAVE ME ALONE!" NO S/S OF RESPIRATORY DISTRESS OR DISCOMFORT NOTED AT THIS TIME. COOLING MEASURES INITIATED. WILL CONTINUE TO MONITOR.
[2018-03-21] MEDS ORDERED: DILTIAZEM 60 MG TAB PO SCH (21:00)
--- NOTE | 2018-03-21 23:00 | NUR ---
PT SLEEPING IN BED. NO S/S OF RESPIRATORY DISTRESS OR DISCOMFORT AT THIS TIME. WILL CONTINUE TO MONITOR.
[2018-03-22] VITALS: BP 123/67
--- NOTE | 2018-03-22 | NUR ---
VITAL SIGNS TAKEN AND TOLERATED WELL. TEMPERATURE SLOWLY GOING DOWN. NO S/S OF RESPIRATORY DISTRESS OR DISCOMFORT NOTED AT THIS TIME. WILL CONTINUE TO MONITOR.
[2018-03-22] MEDS: NACL 0.9% 1,000 ML IV SCH ×2 (00:21→16:52)
--- NOTE | 2018-03-22 02:00 | NUR ---
PT CONTINUES TO SLEEP AT THIS TIME. NO S/S OF RESPIRATORY DISTRESS OR DISCOMFORT AT THIS TIME. WILL CONTINUE TO MONITOR.
[2018-03-22 04:00] VITALS: BP 122/54
--- NOTE | 2018-03-22 04:00 | NUR ---
VITAL SIGNS TAKEN AND TOLERATED WELL. PT TEMPERATURE CONTINUES TO DECREASE. COOL PRECAUTIONS IN PLACE. NO S/S OF RESPIRATORY DISTRESS OR DISCOMFORT. WILL CONTINUE TO MONITOR.
[2018-03-22] MEDS: CLINDAMYCIN 600 MG in DEXTROSE 5% 50 ML IV SCH ×2 (04:31→13:44)
--- NOTE | 2018-03-22 04:35 | NUR ---
SCHEDULED MEDICATION GIVEN AND TOLERATED WELL. NO S/S OF RESPIRATORY DISTRESS OR DISCOMFORT. WILL CONTINUE TO MONITOR.
--- NOTE | 2018-03-22 05:00 | NUR ---
BLOOD GLUCOSE 293-WILL ADMINISTER INSULIN.
[2018-03-22] MEDS: BLOOD GLUCOSE MONITORING 1 DEV DEV FS SCH ×4 (05:47→21:00)
[2018-03-22] MEDS: INSULIN LISPRO SLIDING SCALE 100 UNITS/ML VIAL SUBQ PRN ×3 (06:19→16:56)
--- NOTE | 2018-03-22 06:22 | NUR ---
INSULIN COVERAGE GIVEN PER PROTOCOL. PT TOLERATED WELL. NO S/S OF RESPIRATORY DISTRESS OR DISCOMFORT. WILL CONTINUE TO MONITOR.
[2018-03-22 06:58] LABS: HEMATOCRIT 32.8 % (36-52); HEMOGLOBIN 10.8 g/dL (12.0-18.0); MEAN CORPUSCULAR HEMOGLOBIN 25 pg (27-31); MEAN CORPUSCULAR HGB CONC 33 g/dL (33-37); MEAN CORPUSCULAR VOLUME 76.5 fL (80-94); PLATELET COUNT (AUTO) 307 K/uL (140-450); RED BLOOD CELL COUNT(AUTO) 4.29 MIL/uL (4.20-6.10); RED CELL DISTRIBUTION WIDTH 14.7 % (11.6-13.7); WHITE BLOOD COUNT (AUTO) 21.7 K/uL (4.8-10.8)
--- NOTE | 2018-03-22 07:04 | NUR ---
ENDORSED PT CARE TO DAY SHIFT NURSE SITAL-RN FOR CONTINUITY OF CARE.
[2018-03-22 07:19] LABS: LYMPHOCYTES % (MANUAL) 2 % (20-46); MONOCYTES % (MANUAL) 6 % (5-12)
[2018-03-22] MEDS: ALBUTEROL SULFATE/IPRATROPIU 3 ML SOL IH SCH ×3 (07:34→19:29)
[2018-03-22 07:46] LABS: PHOSPHORUS 2.9 mg/dL (2.5-4.9)
[2018-03-22 08:00] VITALS: BP 127/79
[2018-03-22 08:03] LABS: ANION GAP 10.6 (8-16); CARBON DIOXIDE 22.3 mmol/L (21-32); CREATININE 1.5 mg/dL (0.7-1.3); POTASSIUM 3.9 mmol/L (3.5-5.1)
[2018-03-22] MEDS: metFORMIN 500 MG TAB PO SCH ×2 (09:23→22:16)
[2018-03-22] MEDS: ARIPiprazole 10 MG TAB PO SCH (09:23)
[2018-03-22] MEDS: SENNA 8.6 MG TAB PO SCH (09:23)
[2018-03-22] MEDS: SERTRALINE 50 MG TAB PO SCH (09:24)
[2018-03-22] MEDS: PANTOPRAZOLE 40 MG TABEC PO SCH (09:24)
[2018-03-22] MEDS: BRIMONIDINE TARTRATE 0.2% OP 5 ML BTL LEFT EYE SCH ×3 (09:26→16:55)
[2018-03-22] MEDS: TIMOLOL OP 0.5% 5 ML BTL LEFT EYE SCH ×2 (09:27→21:00)
[2018-03-22] MEDS: Z-GUARD PASTE TP SCH ×2 (09:30→21:00)
[2018-03-22] MEDS: ASPIRIN 81 MG TAB.CHEW PO SCH (09:37)
--- NOTE | 2018-03-22 10:16 | NUR ---
PATIENT HAS BEEN SCREENED AND CATEGORIZED HIGH NUTRITION RISK. PATIENT WILL BE SEEN WITHIN 1-2 DAYS OF ADMISSION. 03/22/[address]
[2018-03-22] MEDS ORDERED: FUROSEMIDE 20 MG/2 ML VIAL IVP SCH (10:30)
[2018-03-22] MEDS ORDERED: INSULIN LANTUS 100 UNITS/ML 10 ML VIAL SUBQ SCH (10:30)
[2018-03-22] MEDS: LEVOFLOXACIN 500 MG/D5W PREMIX 100 ML IV SCH (10:47)
[2018-03-22 12:00] VITALS: BP 149/83
--- NOTE | 2018-03-22 13:55 | NUR ---
ADMINISTERED MED ORDERED. PT TOLERATED WELL. PT ON O2 3LPMK VIA NC. HAS SAFETY PRECAUTION IN PLACE. BED IN LOW POSITION. CALL LIGHT WITHIN REACH..PT DENIES PAIN. TALKS VERY LITTLE. WILL CONTINUE TO MONITOR PT.
--- NOTE | 2018-03-22 14:00 | NUR ---
Document Scanner Notes: Late Entry attempted to meet with patient to discuss, confirm, and gather information. Patient was sleeping, I attempted to wake him up but he was not cooperative Stated " I want to sleep" and refused to respond to any of my questions.
[2018-03-22 16:00] VITALS: BP 118/63
--- NOTE | 2018-03-22 16:30 | NUR ---
CHECKED ON PT. ADJUSTED THE PT BODY POSITION. ADMINISTERED MEDS ORDERED, PT TOLERATED WELL. ALL SAFETY MEASURE IN PLACE. WILL CONTINUE TO MONITOR PT.
--- NOTE | 2018-03-22 17:05 | NUR ---
ENDORSED PT TO PM NURSE . PT STABLE AT THIS TIME.
--- NOTE | 2018-03-22 17:53 | NUR ---
03/22/18 RD INITIAL ASSESSMENT COMPLETED PLEASE REFER TO NUTRITION ASSESSMENT UNDER CARE ACTIVITY FOR ESTIMATED NUTRITIONAL NEEDS. 1. CONTINUE CCHO 60 GM DIET TOLERATED 2. RECOMMEND PT UNDERGO SWALLOW EVAL; MODIFY FOOD TEXTURE INDICATED 3. PREBIOTICS AND PROBIOTICS D/T ANTIBIOTIC USE 4. FOLLOW-UP MALNUTRITION REASSESSMENT 5. RD TO FOLLOW-UP 2-3 DAYS, HIGH RISK MIKE MARINELLI, RD
--- NOTE | 2018-03-22 18:00 | NUR ---
CHECKED ON PT. HAS NO SIGN OF DISTRESS. PT SLEEPING ON HIS BED. ALL SAFETY MEASURE IN PLACE .WILL CONTINUE TO MONITOR PT.
[2018-03-22 18:34] LABS: HEMATOCRIT 33.9 % (36-52); MEAN CORPUSCULAR HEMOGLOBIN 25 pg (27-31); MEAN CORPUSCULAR HGB CONC 33 g/dL (33-37); MEAN CORPUSCULAR VOLUME 76.9 fL (80-94); PLATELET COUNT (AUTO) 314 K/uL (140-450); RED BLOOD CELL COUNT(AUTO) 4.41 MIL/uL (4.20-6.10); RED CELL DISTRIBUTION WIDTH 14.3 % (11.6-13.7); WHITE BLOOD COUNT (AUTO) 22.2 K/uL (4.8-10.8)
[2018-03-22] MEDS ORDERED: VANCOMYCIN PER PHARMACY MC PRN (18:45)
[2018-03-22 19:14] LABS: ANION GAP 13.1 (8-16); CARBON DIOXIDE 24.6 mmol/L (21-32); CREATININE 1.5 mg/dL (0.7-1.3); POTASSIUM 3.7 mmol/L (3.5-5.1)
[2018-03-22 19:28] LABS: LYMPHOCYTES % (MANUAL) 2 % (20-46); METAMYELOCYTES % 1 % (0-0); MONOCYTES % (MANUAL) 3 % (5-12); PROMYELOCYTES % 1 % (0-0)
--- NOTE | 2018-03-22 19:30 | NUR ---
REPORT RECEIVED FORM DAYSHIFT NURSE AT BEDSIDE FOR TRANSFER OF CARE. PT IN LOW BED WITH HOB ELEVATED 45% . PT IS AO X 2. HE IS ON N/C AT 4 LITERS WITH HUMIDIFIED AIR. PT HAS EVEN AND UNLABORED RESPIRATIONS, PT HAS A CLOSED WOUNDS ONE ON RIGHT ELBOW AND ON THE LEFT BROWN HAS SOME OLD SCABS . PT IS BKA OF THE RIGHT LEG, STUMP INTACT. PT HAS BLINDNESS OF THE RIGHT EYE PT RIGHT LID REMAINS CLOSED. HE HAS AN IV SITE ON R WRIST 20 GAUGE. PT IN LOW BED WITH SIDE RAILS UP X 2 AND CALL AJ IN REACH. NO S/S OF PAIN OR DISTRESS NOTED.
[2018-03-22 20:00] VITALS: BP 107/53
[2018-03-22] MEDS: VANCOMYCIN 1,250 MG in NACL 0.9% 250 ML IV SCH (20:43)
[2018-03-22] MEDS: INSULIN LANTUS 100 UNITS/ML 10 ML VIAL SUBQ SCH (21:00)
[2018-03-22] MEDS: KETOCONAZOLE 2% 15 GM TUBE TP SCH (21:00)
[2018-03-22] MEDS: TAMSULOSIN 0.4 MG CAP PO SCH (22:16)
--- NOTE | 2018-03-22 23:00 | NUR ---
PT RESTING IN BED, AROUSABLE TO NAME, NO S/S OF PAIN OR DISTRESS NOTED. SIDE RIALS UP IN BED AND PT CHANGED AND REPOSITIONED FOR COMFORT, IV SITE MUÑOZ AND N/S RUNNING AT 60 MLS/HR.
[2018-03-23] VITALS: BP 132/69
--- NOTE | 2018-03-23 01:38 | NUR ---
PT WITH FOR LOW O2 SATURATION 86-87%PLACED ON 8L OXYMIZER AT THIS TIME, TOLERATING WELL, O2 SAT 90-92%, HR 106, WILL TITRATE TOLERATED, KAMILLE BELL NOTIFIED
--- NOTE | 2018-03-23 01:40 | NUR ---
DR. ASHER, OF RESIDENT'S GROUP MADE AWARE OF PT DE-STATING AND RESPIRATORY PLACING PT ON OXIMIZER. PT STILL ATTEMPTS TO PULL OFF OXIDIZER. OXIDIZER SECURED IN PLACE AND FREQUENT CHECKS RENDERED ON RESIDENT. PT STRAIGHT CATHED FOR URINE SAMPLE, DUE TO PRIMARY DOCTOR ORDERING URINE OSMOLOGY TEST. PT ALSO TURNED AND REPOSITIONED FOR COMFORT. HOB ELEVATED 45%, PT IN LOW BED WITH SIDE RAILS UP X 2 AND CALL AJ IN REACH.
[2018-03-23 06:00] VITALS: BP 114/72
[2018-03-23] MEDS: NACL 0.9% 1,000 ML IV SCH ×2 (06:35→22:36)
[2018-03-23 07:06] LABS: HEMATOCRIT 34.2 % (36-52); HEMOGLOBIN 11.2 g/dL (12.0-18.0); MEAN CORPUSCULAR HEMOGLOBIN 25 pg (27-31); MEAN CORPUSCULAR HGB CONC 33 g/dL (33-37); MEAN CORPUSCULAR VOLUME 77.4 fL (80-94); PLATELET COUNT (AUTO) 348 K/uL (140-450); RED BLOOD CELL COUNT(AUTO) 4.42 MIL/uL (4.20-6.10); RED CELL DISTRIBUTION WIDTH 14.6 % (11.6-13.7); WHITE BLOOD COUNT (AUTO) 25.4 K/uL (4.8-10.8)
[2018-03-23] MEDS: ALBUTEROL SULFATE/IPRATROPIU 3 ML SOL IH SCH ×3 (07:24→19:11)
--- NOTE | 2018-03-23 07:25 | NUR ---
RECEIVED PATIENT FROM NIGHTSHIFT NURSE AT BEDSIDE. PATIENT ASLEEP AT THIS TIME. PATIENT HAS OXIMIZER ON 7L. PATIENT KEEPS TRYING TO TAKE OFF OXIMIZER. PATIENT SHOWS NO SIGNS OF PAIN. NO DISTRESS NOTED. IV NOTED ON THE RIGHT HAND 20 G WITH 60 ML/HR. NO DISTRESS NOTED. UPDATED BOARD IN PATIENT'S ROOM. LOWERED BED OF PATIENT. APPROPRIATE SIGNS OUTSIDE OF PATIENTS ROOM. WILL CONTINUE TO MONITOR PATIENT.
[2018-03-23 07:26] LABS: ANION GAP 14.3 (8-16); CARBON DIOXIDE 23.5 mmol/L (21-32); CREATININE 1.2 mg/dL (0.7-1.3); POTASSIUM 3.8 mmol/L (3.5-5.1)
[2018-03-23 07:30] LABS: MAGNESIUM 1.8 mg/dL (1.8-2.4); PHOSPHORUS 2.4 mg/dL (2.5-4.9)
--- NOTE | 2018-03-23 07:37 | NUR ---
RECEIVED PATIENT ON ROOM AIR DUE TO PATIENT NONCOMPLIANCE, O2 SAT 80%. PLACED PATIENT BACK ON OXYMIZER AT 5L. O2 SAT 87%. SCHEDULED BREATHING TREATMENT ADMINISTERED. PATIENT REMOVED MASK HALF WAY THROUGH TREATMENT. ENCOURAGED PATIENT TO FINISH BREATHING TREATMENT, PATIENT CONTINUED TO TAKE OFF MASK. BREATHING TREATMENT ENDED. PLACED PATIENT BACK ON 5L OXYMIZER. WILL CONTINUE TO MONITOR.
[2018-03-23] MEDS: INSULIN LISPRO SLIDING SCALE 100 UNITS/ML VIAL SUBQ PRN ×2 (07:43→13:15)
[2018-03-23] MEDS: BLOOD GLUCOSE MONITORING 1 DEV DEV FS SCH ×4 (07:43→20:47)
--- NOTE | 2018-03-23 07:51 | NUR ---
TRANSFER OF CARE TO DAYSHIFT PT IN STABLE CONDITION
[2018-03-23 08:00] VITALS: BP 151/84
[2018-03-23 08:34] LABS: LYMPHOCYTES % (MANUAL) 3 % (20-46); MONOCYTES % (MANUAL) 4 % (5-12)
[2018-03-23] MEDS ORDERED: INSULIN NPH HUM/REG INSULIN HM 100 UNIT/ML 10 ML VIAL SUBQ SCH (08:45)
[2018-03-23] MEDS: PANTOPRAZOLE 40 MG TABEC PO SCH (09:00)
[2018-03-23] MEDS: ASPIRIN 81 MG TAB.CHEW PO SCH (09:00)
[2018-03-23] MEDS: SERTRALINE 50 MG TAB PO SCH (09:00)
[2018-03-23] MEDS: SENNA 8.6 MG TAB PO SCH (09:01)
[2018-03-23] MEDS: ARIPiprazole 10 MG TAB PO SCH (09:01)
[2018-03-23] MEDS: BRIMONIDINE TARTRATE 0.2% OP 5 ML BTL LEFT EYE SCH ×3 (09:12→17:57)
[2018-03-23] MEDS: TIMOLOL OP 0.5% 5 ML BTL LEFT EYE SCH ×2 (09:12→20:50)
[2018-03-23] MEDS: KETOCONAZOLE 2% 15 GM TUBE TP SCH ×2 (09:13→20:59)
[2018-03-23] MEDS: Z-GUARD PASTE TP SCH ×2 (09:13→21:00)
--- NOTE | 2018-03-23 09:13 | NUR ---
PATIENT TOOK AM MEDICATIONS. PATIENT TOLERATED WELL. WILL CONTINUE TO MONITOR PATIENT.
[2018-03-23] MEDS ORDERED: SODIUM PHOS / POTASSIUM PHOS 1 PKT PDR PO SCH (10:00)
[2018-03-23] MEDS ORDERED: FERROUS SULFATE 325 MG TABEC PO SCH (10:00)
[2018-03-23] MEDS ORDERED: metFORMIN 850 MG TAB PO SCH (10:00)
[2018-03-23] MEDS ORDERED: MEROPENEM 500 MG in NACL 0.9% 50 ML IV SCH (10:30)
--- NOTE | 2018-03-23 11:00 | NUR ---
Sole Sewer Hand Notes: Late entry I attempted to contact Patient's son Vasyl Conklin at to discuss, confirm, and gather information. Patient's son was not available, and I left him a voice mail MSG with my contact information and a request for a call back.
--- NOTE | 2018-03-23 11:00 | NUR ---
Manager Domestic Notes: Late Entry attempted to meet with patient for the second time to discuss, confirm, and gather information. Patient was awake however; will not respond to any questions asked by these health technical writer.
--- NOTE | 2018-03-23 11:30 | NUR ---
PATIENT RESTING IN BED. NO DISTRESS NOTED. WILL CONTINUE TO MONITOR PATIENT.
--- NOTE | 2018-03-23 12:05 | NUR ---
WOUND CARE EVALUATION NOTES: REASON FOR EVALUATION: LEFT SCALP EXCORIATION SKIN ASSESSMENT DONE ON THIS 67 Y/O MALE PATIENT ADMITTED FROM [facility] TO [facility], WITH INITIAL DIAGNOSIS OF ALOC. PT IS COUNCIL ONLY HEAR FROM RIGHT EAR AND RIGHT EYE BLINDNESS. PAST MEDICAL HISTORY INCLUDE DM, RIGHT BKA, AND HYPERLIPIDEMIA. ALL ABOVE INFORMATION WAS OBTAINED FROM THE ADMISSION H&P. PATIENT IS AWAKE, SKIN WARM AND DRY, MULTIPLE SCABS TO UPPER AND LOWER EXTREMITIES. BLE NO HAIR GROWTH AND BILATERAL PEDAL PULSES PRESENT. CAPILLARY REFILL <3 SEC X 10 TOES. FUNGAL LIKE TOE NAILS. PLAN OF CARE DISCUSSED WITH PT, PT VERBALIZES UNDERSTANDING. INTEGUMENTARY: -LEFT PARIETAL SCALP, DRY WITH SKIN INTACT NO EXCORIATION OBSERVED -ABRASIONS TO RIGHT SCAPULA AND RIGHT ELBOW -LEFT HAND OLD BRUISE 3X3 CM -RIGHT BKA STUMP DRY AND CLEAN -LLE MULTIPLE SCABS -SACRAL COCCYX OLD HEALED SCAR RECOMMENDATIONS: -PAINT LLE DRY SCABS WITH BETADINE SOLUTION BID AND LEAVE IT OPEN TO AIR -APPLY HYDRAGUARD TO SACRALCOCCYX BIDWC AND PRN IF SOILING, LEAVE IT OPEN TO AIR -TURN AND REPOSITION PATIENT Q2H -OFFLOAD LEFT HEEL BY PLACING PILLOWS UNDER CALVES AT ALL TIMES, UNLESS OTHERWISE CONTRAINDICATED -PRESSURE REDISTRIBUTION SURFACE THERAPY -KEEP SKIN CLEAN AND DRY AT ALL TIMES. RECOMMENDATIONS DISCUSSED WITH PRIMARY RN WILL FOLLOW UP PATIENT Q 7 -10 DAYS AND PRN. PLEASE CONTACT WOUND CARE NURSE FOR ANY QUESTION OR CHANGES IN WOUND CONDITION
--- NOTE | 2018-03-23 13:32 | NUR ---
no hhn given pt is sleeping with no signs of distress noted at this time
--- NOTE | 2018-03-23 13:50 | NUR ---
PATIENT RESTING IN BED. NO DISTRESS NOTED. WILL CONTINUE TO MONITOR PATIENT.
--- NOTE | 2018-03-23 14:41 | NUR ---
PHYSICAL THERAPY CO-SIGN The Physical Therapy Progress Notes documented by [employer] Supervisor have been reviewed. I CONCUR W/AUTO EMISSIONS TECHNICIAN NOTE; CONT PER TX PLAN Reviewed/Co-Signed by: Chanell Vargas, PT Documentation Done by: FREDDIE GALLEGOS PTA Addendum: 03/23/18 at 1441 by Chanell Vargas PT Amended: Links added.
[2018-03-23 16:00] VITALS: BP 128/68
--- NOTE | 2018-03-23 16:50 | NUR ---
PATIENT RESTING IN BED IN HIGH FOWLERS POSITION. NO DISTRESS NOTED. WILL CONTINUE TO MONITOR PATIENT.
[2018-03-23] MEDS: metFORMIN 850 MG TAB PO SCH (17:55)
--- NOTE | 2018-03-23 19:22 | NUR ---
REPORT RECEIVED FROM RENETTA BELL DAYSHIFT NURSE AT BEDSIDE FOR TRANSFER OF CARE. PT IN LOW BED WITH SIDE RAILS UP X [address] HOB ELEVATED TO 45 %. PT HAS R WRIST 20 GAUGE IV ASYMPTOMATIC AND FLUSHED PATENT. PT IS AOX 2 HE IS ALERT TO HIS NAME AND HAS NO S/S OF PAIN OR DISTRESS NOTED. V/S FOLLOWS T 99.2 P 73 R 22 B/P 131/77 O2 IS 90% WITH 7 LITERS VIA OXYMIZER SUPPLEMENTAL O2. F/S IS 133.
--- NOTE | 2018-03-23 19:22 | NUR ---
GAVE REPORT TO NIGHTSHIFT NURSE AT BEDSIDE. PATIENT IN STABLE CONDITION.
[2018-03-23 20:00] VITALS: BP 131/77
[2018-03-23] MEDS: VANCOMYCIN 1,250 MG in NACL 0.9% 250 ML IV SCH (20:45)
[2018-03-23] MEDS: TAMSULOSIN 0.4 MG CAP PO SCH (20:51)
[2018-03-23] MEDS: ACETAMINOPHEN 325 MG TAB PO PRN (20:52)
[2018-03-23] MEDS: INSULIN LANTUS 100 UNITS/ML 10 ML VIAL SUBQ SCH (21:02)
--- NOTE | 2018-03-23 22:00 | NUR ---
PT TURNED, CHANGED AND REPOSITIONED. THEN ASSISTED WITH HS SNACK OF HAM AND CHEESE SANDWICH, OF WHICH HE ATE 75%.BED LEFT IN LOW POSITION WITH SIDE RAILS UP.
--- NOTE | 2018-03-23 23:23 | NUR ---
SPOKE WITH ERIKA AT [facility] REGARDING ANY ALLERGIC REACTIONS TO PENICILLINS AND OR AMOXICILLIN, ERIKA SAID THAT THERE IS NO DOCUMENTATION OF PT ALLERGIES.
--- NOTE | 2018-03-24 00:30 | NUR ---
PT IN LOW BED WITH SIDE RAILS UP X 2 AND CALL AJ IN REACH. HOB UP 45%. NO S/S OF PAIN OR DISTRESS NOTED. V/S FOLLOWS: T 97.9 P 95 R 22 B/P 141/95 O2 93% WITH 7 L VIA OXIMIZER IN PLACE. PT TURNED AND REPOSITIONED.
[2018-03-24 01:00] VITALS: BP 121/63
--- NOTE | 2018-03-24 04:34 | NUR ---
PT IN LOW BED WITH SIDE RAILS UP X 2 AND ALL FALL PRECAUTIONS IN PLACE. PT RESTING IN BED AROUSABLE TO NAME NO S/S OF PAIN OR DISCOMFORT NOTED V/S FOLLOWS T 98.6 P 102 R 20 B/P 120/72 02 94 % WITH OXIMIZER AT 7 L . PT TURNED AND CHANGED AND REPOSITIONED.
[2018-03-24] MEDS: INSULIN LISPRO SLIDING SCALE 100 UNITS/ML VIAL SUBQ PRN ×2 (05:57→12:35)
[2018-03-24] MEDS: BLOOD GLUCOSE MONITORING 1 DEV DEV FS SCH ×4 (06:01→21:10)
[2018-03-24] MEDS: ALBUTEROL SULFATE/IPRATROPIU 3 ML SOL IH SCH ×3 (07:13→19:42)
--- NOTE | 2018-03-24 07:13 | NUR ---
PER NOC RN PATIENT HAS TENDENCY TO REMOVE NC DUE TO DEMENTIA OFF SUPPLEMENTAL OXYGEN AT THIS TIME SATURATION 82% ROOM AIR POST HHN THERAPY PLACED ON SUPPLEMENTAL OXYGEN AT 4 LPM VIA NC
--- NOTE | 2018-03-24 07:25 | NUR ---
REPORT GIVEN TO DANYELL BELL DAY SHIFT NURSE AT BEDSIDE FOR TRANSFER OF CARE, PT IN STABLE CONDITION.
--- NOTE | 2018-03-24 07:30 | NUR ---
RECEIVED PT FROM RN DISCHARGE NURSE, KAMILLE, PT IS AWAKE LYING ON THE BED, SIDE RAILS ARE UP AND CALL LIGHT WITHIN REACH. PT HAS A RT BKA AMPUTATION AND HAS A LEFT LEG WOUND PRESENT. PT HAS AN IV LINE ON THE RT WRIST G. 20 WITH NS RUNNING AT 60ML/HR, INTACT AND PATENT. PT IS ON OXYMIZER AT 7L. PT HAS AN ON GOING BREATHING TREATMENT WITH RT ON THE BEDSIDE AND PT TOLERATES IT. FALL PRECAUTION ENFORCED.NO SIGN OF DISTRESS NOTED AND WILL CONTINUE TO MONITOR.
[2018-03-24 07:31] LABS: HEMATOCRIT 35.5 % (36-52); HEMOGLOBIN 11.5 g/dL (12.0-18.0); MEAN CORPUSCULAR HEMOGLOBIN 26 pg (27-31); MEAN CORPUSCULAR HGB CONC 32 g/dL (33-37); PLATELET COUNT (AUTO) 358 K/uL (140-450); WHITE BLOOD COUNT (AUTO) 22.7 K/uL (4.8-10.8)
[2018-03-24 07:40] LABS: ANION GAP 13.5 (8-16); CARBON DIOXIDE 23.3 mmol/L (21-32); CREATININE 1.2 mg/dL (0.7-1.3); POTASSIUM 3.8 mmol/L (3.5-5.1)
[2018-03-24 07:50] LABS: MAGNESIUM 1.7 mg/dL (1.8-2.4); PHOSPHORUS 2.8 mg/dL (2.5-4.9)
--- NOTE | 2018-03-24 07:55 | NUR ---
PT IS AWAKE AND VITAL SIGNS TAKEN AND IS STABLE. NO SIGN OF DISTRESS NOTED, WILL MONITOR.
[2018-03-24 08:00] VITALS: BP 119/52
[2018-03-24] MEDS ORDERED: MAGNESIUM OXIDE 400 MG TAB PO SCH (08:47)
[2018-03-24] MEDS ORDERED: LEVOFLOXACIN 500 MG/D5W PREMIX 100 ML IV SCH (09:00)
--- NOTE | 2018-03-24 09:00 | NUR ---
PT IS BEING ASSISTED BY THE PT STAFF AND WAS ASSISTED TO SEAT ON THE CHAIR. NO SIGN OF DISTRESS NOTED.
[2018-03-24] MEDS: metFORMIN 850 MG TAB PO SCH ×2 (09:02→16:59)
[2018-03-24] MEDS: PANTOPRAZOLE 40 MG TABEC PO SCH (09:02)
[2018-03-24] MEDS: SENNA 8.6 MG TAB PO SCH (09:03)
[2018-03-24] MEDS: ASPIRIN 81 MG TAB.CHEW PO SCH (09:03)
[2018-03-24] MEDS: ARIPiprazole 10 MG TAB PO SCH (09:03)
[2018-03-24] MEDS: SERTRALINE 50 MG TAB PO SCH (09:04)
[2018-03-24] MEDS: TIMOLOL OP 0.5% 5 ML BTL LEFT EYE SCH ×2 (09:30→21:22)
[2018-03-24] MEDS: BRIMONIDINE TARTRATE 0.2% OP 5 ML BTL LEFT EYE SCH ×3 (09:30→16:59)
[2018-03-24] MEDS: KETOCONAZOLE 2% 15 GM TUBE TP SCH ×2 (09:31→21:23)
[2018-03-24] MEDS: Z-GUARD PASTE TP SCH ×2 (09:31→21:23)
--- NOTE | 2018-03-24 09:35 | NUR ---
PT IS AWAKE AND SEATED ON THE CHAIR, MEDICATIONS GIVEN AND PT TOLERATED IT. NO SIGN OF DISTRESS NOTED AND WILL MONITOR.
[2018-03-24 09:36] LABS: LYMPHOCYTES % (MANUAL) 4 % (20-46); MONOCYTES % (MANUAL) 9 % (5-12)
--- NOTE | 2018-03-24 10:48 | NUR ---
Surety Bond Agent Notes: These radio script writer attempted to contact Patient's son Vasyl Conklin at for the second time to discuss, confirm, and gather information. Patient's son was not available, and I left him a voice mail MSG with my contact information and a request for a call back
--- NOTE | 2018-03-24 12:08 | NUR ---
Heel Seat Laster Notes: I contact Kaitlyn from [facility] to inform her of a needed LTAC evaluation for patient. Industrial Coffee Grinder Faxed Patient's Facesheet.
[2018-03-24] MEDS: NACL 0.9% 1,000 ML IV SCH (15:55)
[2018-03-24 16:00] VITALS: BP 132/71
--- NOTE | 2018-03-24 16:00 | NUR ---
PHYSICAL THERAPY CO-SIGN The Physical Therapy Progress Notes documented by Corn Cooker have been reviewed. Reviewed/Co-Signed by: Ana M Wheeler PT Documentation Done by: FREDDIE GALLEGOS WINDOW REPAIRER Pt continues to show weakness and and requires assistance with transfer and promoting terminal knee extension for improved stance for transfers. Addendum: 03/25/18 at 0902 by Ana M Wheeler PT Amended: Links added.
--- NOTE | 2018-03-24 16:45 | NUR ---
PT IS AWAKE LYING ON THE BED, O2 SAT IS 85 AND PT REFUSED TO HAVE THE NASAL CANNULA PRIME BROKER TO HIM. MEDICATION GIVEN AND PT TOLERATED IT, BP IS 132/71 AND RESPIRATION IS 20, NO OTHER UNTOWARD SIGNN NOTED ON THE PT. WILL MONITOR.
--- NOTE | 2018-03-24 19:15 | NUR ---
ENDORSED PT TO [facility] FOR CONTINUITY OF CARE, PT IS STABLE AT THIS TIME.
--- NOTE | 2018-03-24 19:16 | NUR ---
REPORT RECEIVED FROM AM NURSE. PT IS SOB. REST OF VITAL SIGNS ARE STABLE. PT O2 SATURATION IS AT 81%. ASKED PT TO PUT ON NASAL CANNULA AND PT REFUSED. TALKED TO RESPIRATORY TO AID IN PT PUTTING ON NASAL CANNULA. PT WAS COMBATIVE, PUSHING ARMS AWAY SAYING THAT HE CANNOT BREATHE. RT EXPLAINED THAT THE REASON HE CANT BREATHE IS BECAUSE HE DOES NOT HAVE OXYGEN ON BUT PT STILL REFUSED.
--- NOTE | 2018-03-24 19:50 | NUR ---
PT REFUSED HHNTX, AGITATED, PULLED NC OFF, RN NOTIFIED ANG HE KNEW THE SITUATION
[2018-03-24 20:00] VITALS: BP 122/55
--- NOTE | 2018-03-24 20:40 | NUR ---
RICHIE FROM [facility] CALLED FOR INFORMATION IN ORDER TO SECURE PLACEMENT FOR TRANSFER TO [facility]. ASKED ABOUT ABG'S, PROSTHESIS, AND OTHER LABS.
--- NOTE | 2018-03-24 20:55 | NUR ---
CALLED TO LAB TO VERIFY IF VANCOMYCIN CAN BE GIVEN. VANCO TROUGH IS 7. SARAH FROM LAB APPROVED OF THE VANCO TROUGH.
[2018-03-24] MEDS: TAMSULOSIN 0.4 MG CAP PO SCH (21:00)
--- NOTE | 2018-03-24 21:10 | NUR ---
PM MEDS GIVEN. PT TOLERATED WELL. PT DENIED FLOMAX AFTER IT WAS ALREADY OPENED. WASTED IN SHARPS BIN.
[2018-03-24] MEDS: INSULIN LANTUS 100 UNITS/ML 10 ML VIAL SUBQ SCH (21:27)
[2018-03-24] MEDS: VANCOMYCIN 1,250 MG in NACL 0.9% 250 ML IV SCH (21:30)
--- NOTE | 2018-03-24 23:30 | NUR ---
PT ASLEEP NOT IN ANY ACUTE DISTRESS. WILL CONTINUE TO MONITOR.
[2018-03-25] VITALS: BP 121/65
--- NOTE | 2018-03-25 00:30 | NUR ---
VS TAKEN AND ARE STABLE EXCEPT O2 SAT AT 80%. PT STILL REFUSES TO HAVE OXIMIZER ON AT 7L. WILL CONTINUE TO MONITOR.
--- NOTE | 2018-03-25 02:45 | NUR ---
PT SLEEPING COMFORTABLY IN BED. NOT IN ANY ACUTE DISTRESS. WILL CONTINUE TO MONITOR.
[2018-03-25] MEDS: NACL 0.9% 1,000 ML IV SCH (03:51)
[2018-03-25 04:00] VITALS: BP 120/68
--- NOTE | 2018-03-25 05:00 | NUR ---
PT ASLEEP BUT AROUSABLE. CHEST EXPANSION VISIBLE.
[2018-03-25] MEDS: BLOOD GLUCOSE MONITORING 1 DEV DEV FS SCH ×4 (06:03→20:07)
[2018-03-25] MEDS: ALBUTEROL SULFATE/IPRATROPIU 3 ML SOL IH SCH ×3 (07:00→20:17)
--- NOTE | 2018-03-25 07:05 | NUR ---
REPORT GIVEN TO AM NURSE. PT IN STABLE CONDITION.
[2018-03-25 07:21] LABS: HEMATOCRIT 33.4 % (36-52); HEMOGLOBIN 10.7 g/dL (12.0-18.0); MEAN CORPUSCULAR HEMOGLOBIN 25 pg (27-31); MEAN CORPUSCULAR HGB CONC 32 g/dL (33-37); MEAN CORPUSCULAR VOLUME 78.6 fL (80-94); PLATELET COUNT (AUTO) 388 K/uL (140-450); RED BLOOD CELL COUNT(AUTO) 4.25 MIL/uL (4.20-6.10); RED CELL DISTRIBUTION WIDTH 14.7 % (11.6-13.7); WHITE BLOOD COUNT (AUTO) 21.7 K/uL (4.8-10.8)
--- NOTE | 2018-03-25 07:28 | NUR ---
PT REFUSED TO WEAR NASAL CANNULA. Addendum: 03/25/18 at 0743 by True Najera RT DR PENALOZA AND MAIRA KAPLAN.
[2018-03-25 07:29] LABS: ANION GAP 14.3 (8-16); CARBON DIOXIDE 23.1 mmol/L (21-32); POTASSIUM 3.4 mmol/L (3.5-5.1)
--- NOTE | 2018-03-25 07:53 | NUR ---
PATIENT WAS SLEEPING COMFORTABLY, EASILY AROUSABLE BY NAME. RESPIRATION EVEN, TACHYPNEIC ON ROOM AIR. SATURATION 84%. RISKS OF HYPOXIA WAS EXPLAINED TO THE PATIENT. PATIENT CONTINUED TO REFUSE TO HAVE NASAL CANNULA PUT ON. WILL NOTIFY MD. SKIN DRY AND WARM. LUNGS SOUND DIMINISHED BILATERAL BASILARS. BOWEL SOUND ACTIVE THROUGHOUT. IV PATENT AND INTACT. PLAN OF CARE WAS DISCUSSED WITH PATIENT. BED AT LOW POSITION, SIDE RAILS UP. CALL LIGHT WITHIN REACH
[2018-03-25 08:00] VITALS: BP 150/75
[2018-03-25 08:02] LABS: EOSINOPHILS % (MANUAL) 1 % (0-4); LYMPHOCYTES % (MANUAL) 7 % (20-46); MONOCYTES % (MANUAL) 4 % (5-12)
[2018-03-25] MEDS: SENNA 8.6 MG TAB PO SCH (08:39)
[2018-03-25] MEDS: ARIPiprazole 10 MG TAB PO SCH (08:40)
[2018-03-25] MEDS: FERROUS SULFATE 325 MG TABEC PO SCH (08:40)
[2018-03-25] MEDS: metFORMIN 850 MG TAB PO SCH ×2 (08:40→17:22)
[2018-03-25] MEDS: PANTOPRAZOLE 40 MG TABEC PO SCH (08:40)
[2018-03-25] MEDS: SERTRALINE 50 MG TAB PO SCH (08:40)
[2018-03-25] MEDS: KETOCONAZOLE 2% 15 GM TUBE TP SCH ×2 (08:41→20:18)
[2018-03-25] MEDS: TIMOLOL OP 0.5% 5 ML BTL LEFT EYE SCH ×2 (08:41→20:16)
[2018-03-25] MEDS: ASPIRIN 81 MG TAB.CHEW PO SCH (08:41)
[2018-03-25] MEDS: Z-GUARD PASTE TP SCH ×2 (08:42→20:19)
[2018-03-25] MEDS ORDERED: KETOCONAZOLE 2% 15 GM TUBE TP SCH (09:00)
[2018-03-25] MEDS: BRIMONIDINE TARTRATE 0.2% OP 5 ML BTL LEFT EYE SCH ×3 (09:13→17:22)
--- NOTE | 2018-03-25 10:17 | NUR ---
DR. WEISS WAS MADE AWARE OF PATIENT'S LEVEL POTASSIUM 3.4, AND MAG 1.7, WILL MEDICATE PER ORDER
--- NOTE | 2018-03-25 10:28 | NUR ---
PATIENT AWAKE, ALERT. RESPIRATION TACHYNEIC ON ROOM AIR. PATIENT CONTINUED TO REFUSE TO USE OXYGEN. WILL CONTINUE TO CLOSELY MONITOR.
[2018-03-25 12:00] VITALS: BP 145/80
--- NOTE | 2018-03-25 12:04 | NUR ---
1015 CALLED ALIX AT [facility] [phone] AND SPOKE WITH HER REGARDING PT'S SON ALBARO NOT RESPONDING TO PHONE CALLS. VERIFIED WITH HER THAT PHONE NUMBER [phone] IS THE CORRECT NUMBER FOR ALBARO PÉREZ. PER ALIX SHE DOES NOT USUALLY HAVE HIM ANSWER THE PHONE BUT HE DOES USUALLY RESPOND TO MESSAGE. 1153 PLACED A CALL TO ALBARO PÉREZ AND LEFT REQUESTING THAT HE CALL [facility] TODAY EITHER TO [facility] OR JUAN CARLOS FLORES AND LEFT BOTH PHONE NUMBERS TO CALL BACK.
[2018-03-25] MEDS ORDERED: MAGNESIUM OXIDE 400 MG TAB PO SCH (12:30)
[2018-03-25] MEDS ORDERED: POTASSIUM CHLORIDE 10 MEQ TABER PO SCH (12:30)
[2018-03-25] MEDS: MEROPENEM 500 MG in NACL 0.9% 50 ML IV SCH ×2 (12:34→20:20)
--- NOTE | 2018-03-25 12:47 | NUR ---
PATIENT AWAKE, ALERT, SITTING ON THE CHAIR. RESPIRATION EVEN, UNLABOR ON ROOM AIR. SAT 84%. PATIENT CONTINUED REFUSING OXYGEN. DENIED PAIN, SOB. WOUND CARE WAS DONE PER ORDER. NO DISTRESS NOTED AT THIS TIME. CALL LIGHT WITHIN REACH.
--- NOTE | 2018-03-25 13:42 | NUR ---
Vascular Nurse Notes: I Attempted to contact Patient's son Vasyl Conklin at again to discuss patient's status and discuss Patient's needs and higher level of care after discharge from [facility]. Mr. Conklin did not respond and I left him another voice mail MGS with my contact information and request for a call back as soon as possible. I also informed patient's son that if no return call is recieved by today 16:00 by him these sign writer hand will have to call P.D. to do a welfare check on patient's son Vasyl Conklin.
[2018-03-25] MEDS: VANCOMYCIN 1,250 MG in NACL 0.9% 250 ML IV SCH (13:54)
[2018-03-25] MEDS ORDERED: VANCOMYCIN 1GM/DEXT 5% PREMIX 200 ML IV SCH (14:00)
--- NOTE | 2018-03-25 14:26 | NUR ---
PATIENT AGREED TO HAVE NASAL CANNULA PUT ON. PLACED PATIENT ON 4LPM. WILL CONTINUE TO MONITOR
--- NOTE | 2018-03-25 14:42 | NUR ---
03/25/18 RD FOLLOW UP COMPLETED PLEASE REFER TO NUTRITION PROGRESS NOTE UNDER CARE ACTIVITY FOR ESTIMATED NUTRITIONAL NEEDS. 1. CONTINUE CCHO 60GM DIET TOLERATED 2. RECOMMEND MVI QD 3. RD TO FOLLOW-UP 2-3 DAYS, HIGH RISK MIKE MARINELLI, RD
--- NOTE | 2018-03-25 15:06 | NUR ---
PHYSICAL THERAPY CO-SIGN The Physical Therapy Progress Notes documented by Operations Dispatcher have been reviewed. I CONCUR W/FILTRATION OPERATOR NOTE; CONT PER TX PLAN Reviewed/Co-Signed by: Chanell Vargas, PT Documentation Done by: JASMEET FISCHER, FILTRATION OPERATOR Addendum: 03/25/18 at 1507 by Chanell Vargas PT Amended: Links added.
[2018-03-25 16:00] VITALS: BP 147/84
--- NOTE | 2018-03-25 16:30 | NUR ---
PATIENT WAS SLEEPING COMFORTABLY, EASILY AROUSABLE. RESPIRATION EVEN, UNLABOR ON 3L NC. DENIED PAIN, SOB. NO DISTRESS NOTED AT THIS TIME. CALL LIGHT WITHIN REACH
[2018-03-25] MEDS ORDERED: FUROSEMIDE 20 MG/2 ML VIAL IVP SCH (17:00)
--- NOTE | 2018-03-25 17:00 | NUR ---
Regulatory Compliance Director Notes late Entry: I Call [place] [employer] at to request for a welfare check on Patient's son Mr. Vasyl Conklin. Due to Patient's son not responding calls from [facility] during Patient's hospitalization.
[2018-03-25] MEDS: INSULIN LISPRO SLIDING SCALE 100 UNITS/ML VIAL SUBQ PRN ×2 (17:28→20:22)
--- NOTE | 2018-03-25 18:50 | NUR ---
PATIENT IS SLEEPING COMFORTABLY. RESPIRATION EVEN, UNLABOR ON 3L. NO DISTRESS NOTED AT THIS TIME. CALL LIGHT WITHIN REACH
--- NOTE | 2018-03-25 19:35 | NUR ---
ENDORSEMENT IS GIVEN TO BRICK HANDLER NURSE. PATIENT IS STABLE AT THIS TIME
--- NOTE | 2018-03-25 19:36 | NUR ---
RECEIVED PATIENT FROM DAY SHIFT NURSE PATSY-ARABELLA. AAOX3, CALM, COOPERATIVE. ON 4L/NC. IV RIGHT WRIST #2OG-INTACT AND INFUSING WELL. HAS SKIN EXCORIATION ON LEFT LE, RIGHT MID BACK, AND RIGHT ELBOW. HAS SKIN REDNESS ON COCCYX AND SCALP EXCORIATION. RIGHT EYE BLINDNESS. RIGHT BKA. DISCUSSED PLAN OF CARE AND PT VERBALIZED UNDERSTANDING. BED IN LOWEST POSITION, BED BEAKS ON, BED ALARM ON. BED SIDE TABLE AND CALL LIGHT WITHIN REACH. WILL CONTINUE TO MONITOR.
--- NOTE | 2018-03-25 19:37 | NUR ---
INFORMATION GIVEN TO YASH MOLINA BY FINISH MOLDER WAS INSUFFICIENT.
[2018-03-25 20:00] VITALS: BP 145/81
--- NOTE | 2018-03-25 20:00 | NUR ---
VITAL SIGNS TAKEN AND TOLERATED WELL. NO S/S OF RESPIRATORY DISTRESS OR DISCOMFORT AT THIS TIME. WILL CONTINUE TO MONITOR.
--- NOTE | 2018-03-25 20:01 | NUR ---
BLOOD GLUCOSE 180-INSULIN COVERAGE NEEDED. WILL ADMINISTER.
[2018-03-25] MEDS: TAMSULOSIN 0.4 MG CAP PO SCH (20:15)
[2018-03-25] MEDS: INSULIN LANTUS 100 UNITS/ML 10 ML VIAL SUBQ SCH (20:23)
--- NOTE | 2018-03-25 20:25 | NUR ---
PT REFUSED BREATHING TREATMENT STATING "I ALREADY HAD. I DON'T WANT ANY MORE." SCHEDULED MEDICATION GIVEN AND TOLERATED WELL. INSULIN GIVEN PER PROTOCOL AND ALSO TOLERATED WELL. NO S/S OF RESPIRATORY DISTRESS OR DISCOMFORT AT THIS TIME. WILL CONTINUE TO MONITOR.
--- NOTE | 2018-03-25 21:00 | NUR ---
PT RESTING IN BED SLEEPING. NO S/S OF RESPIRATORY DISTRESS OR DISCOMFORT NOTED. WILL CONTINUE TO MONITOR.
--- NOTE | 2018-03-25 23:00 | NUR ---
PT CONTINUES TO SLEEP. NO S/S OF RESPIRATORY DISTRESS OR DISCOMFORT. WILL CONTINUE TO MONITOR.
[2018-03-26] VITALS (7 sets, daily range): BP systolic 115–155; BP diastolic 45–85
--- NOTE | 2018-03-26 | NUR ---
VITAL SIGNS TAKEN AND TOLERATED WELL WHILE SLEEPING. NO S/S OF RESPIRATORY DISTRESS OR DISCOMFORT NOTED AT THIS TIME. WILL CONTINUE TO MONITOR.
--- NOTE | 2018-03-26 02:00 | NUR ---
PT CONTINUES TO SLEEP IN BED. NO S/S OF RESPIRATORY DISTRESS OR DISCOMFORT NOTED AT THIS TIME. WILL CONTINUE TO MONITOR.
--- NOTE | 2018-03-26 04:00 | NUR ---
VITAL SIGNS TAKEN AND TOLERATED WELL. WILL CONTINUE TO MONITOR
[2018-03-26] MEDS: MEROPENEM 500 MG in NACL 0.9% 50 ML IV SCH ×3 (04:04→20:44)
[2018-03-26] MEDS: NACL 0.9% 1,000 ML IV SCH (04:04)
--- NOTE | 2018-03-26 04:05 | NUR ---
SCHEDULED MEDICATION GIVEN AND TOLERATED WELL. NEW BAG OF NS 0.9% HUNG. PT CONTINUES TO SLEEP. NO S/S OF RESPIRATORY DISTRESS OR DISCOMFORT NOTED AT THIS TIME. WILL CONTINUE TO MONITOR.
--- NOTE | 2018-03-26 05:25 | NUR ---
BLOOD GLUCOSE 114-NO INSULIN COVERAGE NEEDED.
[2018-03-26] MEDS: BLOOD GLUCOSE MONITORING 1 DEV DEV FS SCH ×4 (05:56→20:48)
--- NOTE | 2018-03-26 06:00 | NUR ---
PT CONTINUES TO SLEEP IN BED. NO S/S OF RESPIRATORY DISTRESS OR DISCOMFORT NOTED AT THIS TIME. WILL CONTINUE TO MONITOR.
[2018-03-26 06:44] LABS: HEMATOCRIT 34.5 % (36-52); MEAN CORPUSCULAR HEMOGLOBIN 25 pg (27-31); MEAN CORPUSCULAR HGB CONC 32 g/dL (33-37); MEAN CORPUSCULAR VOLUME 78.5 fL (80-94); PLATELET COUNT (AUTO) 456 K/uL (140-450); RED CELL DISTRIBUTION WIDTH 14.8 % (11.6-13.7); WHITE BLOOD COUNT (AUTO) 19.8 K/uL (4.8-10.8)
[2018-03-26 06:54] LABS: MAGNESIUM 1.4 mg/dL (1.8-2.4); PHOSPHORUS 2.3 mg/dL (2.5-4.9)
[2018-03-26 07:04] LABS: ANION GAP 12.7 (8-16); CARBON DIOXIDE 24.8 mmol/L (21-32); POTASSIUM 3.5 mmol/L (3.5-5.1)
--- NOTE | 2018-03-26 07:04 | NUR ---
RECEIVED PATIENT REPORT FROM NIGHTSHIFT NURSE AT BEDSIDE. PATIENT IS ASLEEP IN SEMI-FOWLERS POSITION. PATIENT ON 4L O2 VIA NC AT THIS TIME. NO DISTRESS NOTED. NO SIGNS OF PAIN. PATIENT IS AROUSABLE TO NAME. IV NOTED ON RIGHT WRIST 20G RUNNING 30 ML/HR. IV IS PATENT AND INTACT. PUT CALL LIGHT WITHIN REACH OF PATIENT. UDPATED BOARD IN PATIENT'S ROOM. APPROPRIATE SIGNS OUTSIDE OF PATIENT'S ROOM. WILL CONTINUE TO MONITOR PATIENT.
--- NOTE | 2018-03-26 07:04 | NUR ---
ENDORSED PT CARE TO DAY SHIFT NURSE SHANTELL FOR CONTINUITY OF CARE.
[2018-03-26 07:33] LABS: LYMPHOCYTES % (MANUAL) 6 % (20-46); MONOCYTES % (MANUAL) 6 % (5-12)
[2018-03-26] MEDS: metFORMIN 850 MG TAB PO SCH ×2 (08:11→17:00)
[2018-03-26] MEDS: PANTOPRAZOLE 40 MG TABEC PO SCH (08:11)
[2018-03-26] MEDS: SENNA 8.6 MG TAB PO SCH (08:11)
[2018-03-26] MEDS: VANCOMYCIN 1,250 MG in NACL 0.9% 250 ML IV SCH (08:12)
[2018-03-26] MEDS: SERTRALINE 50 MG TAB PO SCH (08:12)
[2018-03-26] MEDS: ASPIRIN 81 MG TAB.CHEW PO SCH (08:12)
[2018-03-26] MEDS: ARIPiprazole 10 MG TAB PO SCH (08:12)
[2018-03-26] MEDS: BRIMONIDINE TARTRATE 0.2% OP 5 ML BTL LEFT EYE SCH ×3 (08:16→18:57)
[2018-03-26] MEDS: TIMOLOL OP 0.5% 5 ML BTL LEFT EYE SCH ×2 (08:16→20:45)
--- NOTE | 2018-03-26 08:16 | NUR ---
PATIENT TOOK AM MEDICATIONS. PATIENT TOLERATED WELL. WILL CONTINUE TO MONITOR PATIENT.
[2018-03-26] MEDS: KETOCONAZOLE 2% 15 GM TUBE TP SCH ×2 (08:17→20:46)
--- NOTE | 2018-03-26 08:58 | NUR ---
ATTEMPTED TO ADMINISTER BREATHING TX. PT BEING TURNED AND CLEANED AT THIS TIME. WILL CHECK BACK AT A LATER TIME FOR TX.
[2018-03-26] MEDS: Z-GUARD PASTE TP SCH ×2 (09:00→20:47)
[2018-03-26] MEDS: ALBUTEROL SULFATE/IPRATROPIU 3 ML SOL IH SCH ×3 (09:20→20:01)
--- NOTE | 2018-03-26 09:26 | NUR ---
ATTEMPTED TO ADMINISTER BREATHING TX PT RIPS OFF MASK AND REFUSES IT TO BE PLACED BACK ON. PT IS NOT SOB AND NOT IN RESPIRATORY DISTRESS AT THIS TIME.
--- NOTE | 2018-03-26 09:50 | NUR ---
Restaurant Hourly Manager Note: Officer Man from [place] [employer] call left a MSG stating that they attempted to contact Patient's son Vasyl Conklin at his residence, However; No one was home and they left him a note at the door with request to Call [facility].
[2018-03-26] MEDS ORDERED: MAGNESIUM OXIDE 400 MG TAB PO SCH (10:00)
[2018-03-26] MEDS: FUROSEMIDE 20 MG/2 ML VIAL IVP SCH (10:09)
[2018-03-26] MEDS: SODIUM PHOS / POTASSIUM PHOS 1 PKT PDR PO SCH (10:09)
--- NOTE | 2018-03-26 10:52 | NUR ---
PATIENT RESTING IN BED. NO DISTRESS NOTED. WILL CONTINUE TO MONITOR PATIENT.
--- NOTE | 2018-03-26 13:30 | NUR ---
PATIENT RESTING. NO DISTRESS NOTED. WILL CONTINUE TO MONITOR PATIENT.
--- NOTE | 2018-03-26 14:20 | NUR ---
PATIENT WAS ASSISTED INTO A CHAIR AT BEDSIDE. PATIENT TOLERATED WELL. WILL CONTINUE TO MONITOR PATIENT.
--- NOTE | 2018-03-26 14:45 | NUR ---
GENERAL CLERK NOTE [id number] BEDSIDE SWALLOW EVALUATION COMPLETED. PLEASE REFER TO GENERAL CLERK EVALUATION FOR FULL REPORT. PT REFUSED TRIALS OF SOFT SOLIDS AND REGULAR FOOD TEXTURES DURING SWALLOW EVALUATION. PT TOLERATED TRIALS OF THIN LIQUIDS AND PUREE WITH NO OVERT S/S OF ASPIRATION. RECOMMEND: REGULAR TEXTURE + THIN LIQUIDS UPRIGHT AT 90 DEGREES AND 20 MINS AFTER PO INTAKE SMALL BITES/SIPS AT SLOW RATE GENERAL CLERK TO FOLLOW 3X/WK X 1 WK TO MONITOR DIET TOLERANCE AND IMPLEMENT SAFE SWALLOW STRATEGIES RESULTS AND RECOMMENDATIONS COMMUNICATED TO ARABELLA G8996: CI G8997: SWALLOW NOMS 6 FERNANDO ELDER, GENERAL CLERK
--- NOTE | 2018-03-26 14:56 | NUR ---
PHYSICAL THERAPY CO-SIGN The Physical Therapy Progress Notes documented by Morning Show Newscast Producer have been reviewed. I CONCUR W/DRAFTER TOPOGRAPHICAL NOTE; Pt DEMO IMPROVEMENT IN TRANSFERS, CONT PER TX PLAN Reviewed/Co-Signed by: Chanell Vargas, PT Documentation Done by: FREDDIE GALLEGOS PTA Addendum: 03/26/18 at 1457 by Chanell Vargas PT Amended: Links added.
--- NOTE | 2018-03-26 15:08 | NUR ---
PATIENT SLEEPING IN BED AT THIS TIME. NO DISTRESS NOTED. WILL CONTINUE TO MONITOR PATIENT.
--- NOTE | 2018-03-26 16:13 | NUR ---
Table Runner Note: I Faxed [facility]) at admissions Department; Patient's Clinical Information, and MD order Inquiring for short term Skilled care placement.
--- NOTE | 2018-03-26 17:22 | NUR ---
PATIENT RESTING IN BED. NO DISTRESS NOTED. WILL CONTINUE TO MONITOR PATIENT.
--- NOTE | 2018-03-26 19:15 | NUR ---
GAVE REPORT TO NIGHTSHIFT NURSE AT BEDSIDE. PATIENT IN STABLE CONDITION.
--- NOTE | 2018-03-26 19:15 | NUR ---
RECEIVED PT FROM DAY SHIFT NURSE RENETTA, BEDSIDE REPORT GIVEN, PT IN STABLE CONDITION NO SIGNS OF ACUTE DISTRESS, PT ALERT AND ABLE TO FOLLOW SIMPLE COMMANDS, INTRODUCED SELF, UPDATED BOARD, PT RIGHT WRIST IV RUNNING AT 30 ML/HR, INTACT, WITHOUT REDNESS OR SIGNS OF INFILTRATION. V/S TAKEN AND NOTHING ABNORMAL FROM BASELINE, PT ON 5L WITH OXYMIZER. BED IN LOWEST POSITION, CALL LIGHT WITHIN REACH.
[2018-03-26] MEDS: TAMSULOSIN 0.4 MG CAP PO SCH (20:45)
[2018-03-26] MEDS: INSULIN LANTUS 100 UNITS/ML 10 ML VIAL SUBQ SCH (20:49)
--- NOTE | 2018-03-26 22:30 | NUR ---
PT ASLEEP IN BED, NO SIGNS IF DISTRESS OR PAIN, CALL LIGHT WITHIN REACH, BED IN LOWEST POSITION POSSIBLE, WILL CONTINUE TO MONITOR.
--- NOTE | 2018-03-26 23:32 | NUR ---
VS TAKEN PT TOLERATED WELL, NO ABNORMALITIES FROM BASELINE, PT REPORTED FEELING COLD, OFFERED WARM BLANKET, CALL LIGHT WITHIN REACH, WILL CONTINUE TO MONITOR.
--- NOTE | 2018-03-27 02:00 | NUR ---
PT ASLEEP NO SIGNS OF DISTRESS, CALL LIGHT WITHIN REACH, WILL CONTINUE TO MONITOR.
[2018-03-27] MEDS: VANCOMYCIN 1,250 MG in NACL 0.9% 250 ML IV SCH (02:44)
--- NOTE | 2018-03-27 02:44 | NUR ---
VANCOMYCIN TROUGH CAME BACK AT 10.4, VANCOMYCIN ADMINISTERED, PT TOLERATED WELL, WILL CONTINUE TO MONITOR, CALL LIGHT WITHIN REACH.
--- NOTE | 2018-03-27 03:45 | NUR ---
V/S TAKEN, NO ABNORMALITIES FROM BASELINE, CALL LIGHT WITHIN REACH, WILL CONTINUE TO MONITOR.
[2018-03-27 04:00] VITALS: BP 154/81
[2018-03-27] MEDS: MEROPENEM 500 MG in NACL 0.9% 50 ML IV SCH ×3 (04:40→20:54)
--- NOTE | 2018-03-27 06:09 | NUR ---
BLOOD GLUCOSE 64 GAVE 125 ML ORANGE JUICE, PT TOLERATED WELL, WILL REASSESS.
[2018-03-27] MEDS: BLOOD GLUCOSE MONITORING 1 DEV DEV FS SCH ×4 (06:11→21:20)
--- NOTE | 2018-03-27 06:45 | NUR ---
GAVE APPLESAUCE RECHECKED BLOOD GLUCOSE 68, CONSULTED WITH CHARGE NURSE CORI, WILL GIVE DEXTROSE IVP. WILL REASSESS WHEN APPROPRIATE.
--- NOTE | 2018-03-27 06:54 | NUR ---
RECHECK PTS BLOOD SUGAR 203 POST DEXTROSE IVP. PT STABLE NO DISTRESS, CALL LIGHT WITHIN REACH.
--- NOTE | 2018-03-27 07:25 | NUR ---
RECEIVED REPORT FROM NIGHTSHIFT NURSE AT BEDSIDE. UPDATED ON PATIENT'S CONDITION. PATIENT IS IN HIGH FOWLERS POSITION AT THIS TIME. PATIENT WAS GIVEN JUICE FOR HIS LOW BLOOD SUGAR. PATIENT HAS AN IV ON HIS RIGHT WRIST INFUSING 30 ML NORMAL SALINE. NO DISTRESS NOTED AT THIS TIME. NO PAIN NOTED. PATIENT ON 5L O2 VIA OXIMIZER. REMINDED PATIENT TO KEEP ON THE OXYGEN. LOWERED BED TO LOWEST SETTING. APPROPRIATE SIGNS PLACED OUTSIDE OF PATIENT'S ROOM. UPDATED BOARD IN PATIENTS ROOM. WILL CONTINUE TO MONITOR PATIENT.
--- NOTE | 2018-03-27 07:35 | NUR ---
ENDORSED PT TO DAY SHIFT NURSE MARI JACKSON STABLE AT THIS TIME.
[2018-03-27] MEDS: ALBUTEROL SULFATE/IPRATROPIU 3 ML SOL IH SCH ×3 (07:51→20:01)
--- NOTE | 2018-03-27 07:59 | NUR ---
RECEIVED PATIENT ON 5L OXYMIZER, O2 SAT 93%. SCHEDULED BREATHING TREATMENT ADMINISTERED. PATIENT TOLERATE TX WELL, NO ADVERSE SIDE EFFECTS. NO RESPIRATORY DISTRESS NOTED AT THIS TIME. WILL CONTINUE TO MONITOR.
[2018-03-27 08:00] VITALS: BP 128/70
[2018-03-27] MEDS: SENNA 8.6 MG TAB PO SCH (08:20)
[2018-03-27] MEDS: ASPIRIN 81 MG TAB.CHEW PO SCH (08:20)
[2018-03-27] MEDS: MAGNESIUM OXIDE 400 MG TAB PO SCH (08:21)
[2018-03-27] MEDS: PANTOPRAZOLE 40 MG TABEC PO SCH (08:21)
[2018-03-27] MEDS: SERTRALINE 50 MG TAB PO SCH (08:21)
[2018-03-27] MEDS: metFORMIN 850 MG TAB PO SCH ×2 (08:21→18:31)
[2018-03-27] MEDS: ARIPiprazole 10 MG TAB PO SCH (08:21)
[2018-03-27] MEDS: FERROUS SULFATE 325 MG TABEC PO SCH (08:21)
[2018-03-27] MEDS: TIMOLOL OP 0.5% 5 ML BTL LEFT EYE SCH ×2 (08:22→21:19)
[2018-03-27] MEDS: BRIMONIDINE TARTRATE 0.2% OP 5 ML BTL LEFT EYE SCH ×3 (08:22→18:31)
[2018-03-27] MEDS: Z-GUARD PASTE TP SCH ×2 (08:23→20:52)
[2018-03-27] MEDS: KETOCONAZOLE 2% 15 GM TUBE TP SCH ×2 (08:23→20:52)
[2018-03-27] MEDS: NACL 0.9% 1,000 ML IV SCH (08:35)
--- NOTE | 2018-03-27 09:20 | NUR ---
NO DISTRESS NOTED. WILL CONTINUE TO MONITOR PATIENT.
--- NOTE | 2018-03-27 09:40 | NUR ---
03/27/18 RD FOLLOW UP COMPLETED PLEASE REFER TO NUTRITION PROGRESS NOTE UNDER CARE ACTIVITY FOR ESTIMATED NUTRITION NEEDS. RD RECOMMENDATIONS: 1.CONTINUE ON CCHO 60 GM DIET TOLERATED. 2.RD WILL F/U 3-5 DAYS; MOERATE RISK. SONIA SOLORIO, MS, RDN
[2018-03-27] MEDS: FUROSEMIDE 20 MG/2 ML VIAL IVP SCH (10:41)
[2018-03-27] MEDS: SODIUM PHOS / POTASSIUM PHOS 1 PKT PDR PO SCH (10:41)
[2018-03-27 12:00] VITALS: BP 139/68
--- NOTE | 2018-03-27 12:00 | NUR ---
PATIENT RESTING IN BED. NO DISTRESS NOTED. WILL CONTINUE TO MONITOR PATIENT.
[2018-03-27 12:12] LABS: BASOPHILS # (AUTO) 0.1 K/uL (0.00-0.22); BASOPHILS % (AUTO) 0.9 % (0.0-2.0); EOSINOPHILS # (AUTO) 0.2 K/uL (0-0.4); EOSINOPHILS % (AUTO) 1.3 % (0.0-4.0); HEMATOCRIT 34.6 % (36-52); HEMOGLOBIN 11.1 g/dL (12.0-18.0); LYMPHOCYTES % (AUTO) 6.4 % (20.5-51.1); MEAN CORPUSCULAR HEMOGLOBIN 25 pg (27-31); MEAN CORPUSCULAR HGB CONC 32 g/dL (33-37); MEAN CORPUSCULAR VOLUME 77.7 fL (80-94); MONOCYTES # (AUTO) 1.3 K/uL (0.8-1.0); MONOCYTES % (AUTO) 8.6 % (1.7-9.3); NEUTROPHILS # (AUTO) 12.9 K/uL (1.8-7.7); NEUTROPHILS % (AUTO) 82.8 % (42.2-75.2); PLATELET COUNT (AUTO) 504 K/uL (140-450); RED BLOOD CELL COUNT(AUTO) 4.45 MIL/uL (4.20-6.10); WHITE BLOOD COUNT (AUTO) 15.6 K/uL (4.8-10.8)
[2018-03-27 12:17] LABS: ANION GAP 11.3 (8-16); CARBON DIOXIDE 27.9 mmol/L (21-32); POTASSIUM 3.2 mmol/L (3.5-5.1)
[2018-03-27 12:22] LABS: MAGNESIUM 1.4 mg/dL (1.8-2.4)
[2018-03-27] MEDS ORDERED: MAG SULF 2000 MG/WATER PREMIX 50 ML IV ONE (12:45)
[2018-03-27 12:48] LABS: PROTHROMBIN TIME 10.9 secs (10.8-13.4)
--- NOTE | 2018-03-27 12:49 | NUR ---
NO HHN GIVEN AT THIS TIME. PATIENT IS QUIETLY SLEEPING. NO RESPIRATORY DISTRESS NOTED AT THIS TIME. WILL CONTINUE TO MONITOR.
[2018-03-27] MEDS ORDERED: POTASSIUM CHLORIDE 10 MEQ TABER PO SCH (13:00)
[2018-03-27] MEDS: INSULIN LISPRO SLIDING SCALE 100 UNITS/ML VIAL SUBQ PRN ×3 (13:12→21:15)
--- NOTE | 2018-03-27 13:35 | NUR ---
ATTEMPTED TO CALL PATIENT'S SON REGARDING PROCEDURE. NO ANSWER FROM SON. WILL NOTIFY RESIDENT DOCTORS
[2018-03-27] MEDS: MAGNESIUM SULFATE 1GM in DEXTROSE 5% 100 ML PREMIX IV SCH ×2 (14:03→16:00)
[2018-03-27 16:00] VITALS: BP 135/64
[2018-03-27] MEDS: VANCOMYCIN 750 MG in DEXTROSE 5% 250 ML IV SCH (17:00)
--- NOTE | 2018-03-27 17:45 | NUR ---
PATIENTS BLOOD PRESSURE IS 98.6, 135/88, 104 HR, 95%, 18 RR. WILL CONTINUE TO MONITOR PATIENT.
--- NOTE | 2018-03-27 18:00 | NUR ---
VITAL SIGNS ARE 98.3, 139/68, 107 HR, 96 %, 18 RR. WILL CONTINUE TO MONITOR PATIENT.
--- NOTE | 2018-03-27 18:15 | NUR ---
VITAL SIGN ARE 98.7, 133/77, 99 HR, 100%, 17 RR. WILL CONTINUE TO MONITOR PATIENT.
--- NOTE | 2018-03-27 18:30 | NUR ---
PATIENT VITAL SIGNS ARE 98.5, 137/79, 104 HR, 100% 18 RR. WILL CONTINUE TO MONITOR PATIENT.
--- NOTE | 2018-03-27 19:05 | NUR ---
RECEIVED PATIENT RESTING ON BED WITH PIGTAIL ATTACHED TO LEFT CHEST AFTER THORACENTESIS AT 150 CC. CALL LIGHT WITHIN REACH. FALL PRECAUTION IMPLEMENTED. WILL CONTINUE TO MONITOR.
--- NOTE | 2018-03-27 19:05 | NUR ---
GAVE REPORT TO NIGHTSHIFT NURSE. PATIENT IN STABLE CONDITION.
[2018-03-27 20:00] VITALS: BP 117/60
--- NOTE | 2018-03-27 20:00 | NUR ---
VANCOMYCIN GIVEN AT THIS TIME. AM SHIFT UNABLE TO ADMINISTER THE MEDICATION PATIENT IN THE PROCEDURE PER RENETTA.
--- NOTE | 2018-03-27 20:07 | NUR ---
ATTEMPTED TO GIVE PT MEDNEB. PT THREW THE HHN OFF HIS FACE. TRIED TO CONVINCE PT TO KEEP IT ON BUT PT DID NOT COMPLY. NO RESPIRATORY DISTRESS WAS NOTED. WILL CONTINUE TO MONITOR.
[2018-03-27] MEDS: INSULIN LANTUS 100 UNITS/ML 10 ML VIAL SUBQ SCH (21:16)
[2018-03-27] MEDS: TAMSULOSIN 0.4 MG CAP PO SCH (21:19)
--- NOTE | 2018-03-27 22:30 | NUR ---
RESIDENT NOTIFIED ABOUT THE US RESULT. NO CHANGES MADE.
[2018-03-27 23:57] VITALS: BP 114/58
--- NOTE | 2018-03-28 | NUR ---
SEEN PATIENT RESTING ON BED AT HIGH FOWLERS POSITION WITH PILLOW ON BOTH SIDES. ASSISTED PATIENT IN COMFORTABLE POSITION. CALL LIGHT WITHIN REACH. BED ALARM ON. WILL CONTINUE TO MONITOR.
--- NOTE | 2018-03-28 03:20 | NUR ---
SEEN PATIENT ASLEEP ON BED IN HIGH FOWLERS POSITION. FALL PRECAUTION IMPLEMENTED. CALL LIGHT WITHIN REACH. WILL CONTINUE TO MONITOR.
[2018-03-28 03:58] VITALS: BP 131/67
[2018-03-28] MEDS: MEROPENEM 500 MG in NACL 0.9% 50 ML IV SCH ×3 (04:29→20:41)
[2018-03-28] MEDS: VANCOMYCIN 750 MG in DEXTROSE 5% 250 ML IV SCH ×2 (04:33→16:56)
[2018-03-28 06:22] LABS: BASOPHILS # (AUTO) 0.1 K/uL (0.00-0.22); BASOPHILS % (AUTO) 0.4 % (0.0-2.0); EOSINOPHILS # (AUTO) 0.2 K/uL (0-0.4); EOSINOPHILS % (AUTO) 1.3 % (0.0-4.0); HEMATOCRIT 32.5 % (36-52); HEMOGLOBIN 10.6 g/dL (12.0-18.0); LYMPHOCYTES # (AUTO) 1.2 K/uL (2.0-11.5); LYMPHOCYTES % (AUTO) 8.7 % (20.5-51.1); MEAN CORPUSCULAR HEMOGLOBIN 25 pg (27-31); MEAN CORPUSCULAR HGB CONC 33 g/dL (33-37); MONOCYTES # (AUTO) 1.2 K/uL (0.8-1.0); MONOCYTES % (AUTO) 8.2 % (1.7-9.3); NEUTROPHILS # (AUTO) 11.7 K/uL (1.8-7.7); NEUTROPHILS % (AUTO) 81.4 % (42.2-75.2); PLATELET COUNT (AUTO) 488 K/uL (140-450); RED BLOOD CELL COUNT(AUTO) 4.16 MIL/uL (4.20-6.10); RED CELL DISTRIBUTION WIDTH 14.9 % (11.6-13.7); WHITE BLOOD COUNT (AUTO) 14.4 K/uL (4.8-10.8)
[2018-03-28] MEDS: BLOOD GLUCOSE MONITORING 1 DEV DEV FS SCH ×4 (06:29→21:06)
[2018-03-28 06:52] LABS: ALBUMIN 1.5 g/dL (3.4-5.0); ANION GAP 11.2 (8-16); CARBON DIOXIDE 27.4 mmol/L (21-32); CREATININE 1.2 mg/dL (0.7-1.3); PHOSPHORUS 3.2 mg/dL (2.5-4.9); POTASSIUM 3.6 mmol/L (3.5-5.1); TOTAL BILIRUBIN 0.5 mg/dL (0.0-1.0)
--- NOTE | 2018-03-28 07:31 | NUR ---
GAVE REPORT TO AM SHIFT NURSE AT BEDSIDE FOR CONTINUITY OF CARE. PATIENT IN STABLE CONDITION.
--- NOTE | 2018-03-28 07:32 | NUR ---
RECEIVED BEDSIDE REPORT FROM FINANCIAL SERVICES SPECIALIST NURSE. PATIENT IS AWAKE. ONLY ABLE TO STATE HIS NAME AT THIS TIME. ASKED FOR HE SAID, "I CANT SAY" PATIENT HAS TIMES OF CONFUSION. HX OF DEMENTIA. IV ON R FA 22G INFUSING NS TKO. IV IS CLEAN, DRY AND INTACT. PATIENT HAS R BKA. AND L LEG ABRASIONS. TINEUS CAPITUS PRESENT, THERE IS AN OPEN WOUND ON THE TOP OF HIS HEAD. PATIENT ALSO HAS A CHEST TUBE WITH A PIGTAIL. THERE IS 300ML YELLOW OUT PUT. NO SIGNS OF DISTRESS ON 5L OXIMIZER. PATIENT TENDS TO TAKE IT OFF AND HIS OXYGEN SAT DROPS TO 86-89. HAVE TO CONTINUE TO REORIENT PATIENT. PATIENT IS INCONTINENT. FALL RISK IN PLACE. BED IN LOW POSITION. CALL LIGHT WITHIN REACH. WILL CONTINUE TO MONITOR THE PATIENT.
[2018-03-28 08:00] VITALS: BP 116/48
[2018-03-28] MEDS: metFORMIN 850 MG TAB PO SCH ×2 (08:00→16:57)
[2018-03-28] MEDS: ALBUTEROL SULFATE/IPRATROPIU 3 ML SOL IH SCH ×3 (08:05→19:00)
--- NOTE | 2018-03-28 08:14 | NUR ---
RECEIVED PATIENT ON 5L OXYMIZER, O2 SAT 95%. SCHEDULED BREATHING TREATMENT ADMINISTERED. PATIENT TOLERATED TX WELL, NO ADVERSE SIDE EFFECTS. NO RESPIRATORY DISTRESS NOTED AT THIS TIME. WILL CONTINUE TO MONITOR.
[2018-03-28] MEDS: MAGNESIUM OXIDE 400 MG TAB PO SCH (09:00)
[2018-03-28] MEDS: KETOCONAZOLE 2% 15 GM TUBE TP SCH ×2 (09:00→20:42)
[2018-03-28] MEDS: ASPIRIN 81 MG TAB.CHEW PO SCH (09:12)
[2018-03-28] MEDS: ARIPiprazole 10 MG TAB PO SCH (09:12)
[2018-03-28] MEDS: SENNA 8.6 MG TAB PO SCH (09:13)
[2018-03-28] MEDS: PANTOPRAZOLE 40 MG TABEC PO SCH (09:13)
[2018-03-28] MEDS: SERTRALINE 50 MG TAB PO SCH (09:14)
[2018-03-28] MEDS: FUROSEMIDE 20 MG/2 ML VIAL IVP SCH (09:15)
[2018-03-28] MEDS: NACL 0.9% 1,000 ML IV SCH (09:30)
[2018-03-28] MEDS: BRIMONIDINE TARTRATE 0.2% OP 5 ML BTL LEFT EYE SCH ×3 (09:31→16:57)
[2018-03-28] MEDS: TIMOLOL OP 0.5% 5 ML BTL LEFT EYE SCH ×2 (09:31→20:41)
[2018-03-28] MEDS: Z-GUARD PASTE TP SCH ×2 (09:36→20:43)
--- NOTE | 2018-03-28 09:40 | NUR ---
ADMINISTERED MEDS. PATIENT TOLERATED WELL. BED IN LOW POSITION. CALL LIGHT WITHIN REACH. WILL CONTINUE TO MONITOR THE PATIENT.
[2018-03-28 12:00] VITALS: BP 130/63
--- NOTE | 2018-03-28 12:00 | NUR ---
PATIENT IS SLEEPING. NO SIGNS OF DISTRESS 5L OXIMIZER. VITALS ARE WITHIN NORMAL LIMITS. WILL CONTINUE TO MONITOR THE PATIENT.
[2018-03-28] MEDS: INSULIN LISPRO SLIDING SCALE 100 UNITS/ML VIAL SUBQ PRN ×3 (12:09→21:01)
--- NOTE | 2018-03-28 13:00 | NUR ---
CLEANSE L LEG ABRASIONS WITH NS, PAT DRY AND APPLIED ZGUARD. CLEANSED HEAD WITH NORMAL SALINE. PAT DRY, REMOVED SOME EXTRA SCABS AND PLACED MEDICATION. PATIENT TOLERATED WELL. BED IN LOW POSITION. CALL LIGHT WITHIN REACH. WILL CONTINUE TO MONITOR THE PATIENT.
--- NOTE | 2018-03-28 15:23 | NUR ---
PATIENT IS AWAKE. UNABLE TO ANSWER QUESTIONS. HX OF DEMENTIA. WILL CONTINUE TO MONITOR THE PATIENT. BED IN LOW POSITION. CALL LIGHT WITHIN REACH. WILL CONTINUE TO MONITOR THE PATIENT.
[2018-03-28 16:00] VITALS: BP 130/60
--- NOTE | 2018-03-28 17:00 | NUR ---
ADMINISTERED MEDS. PATIENT TOLERATED WELL, BED IN LOW POSITION. CALL LIGHT WITHIN REACH. WILL CONTINUE TO MONITOR THE PATIENT.
[2018-03-28 19:07] LABS: APPEARANCE,SPUN,BODY FLUID CLEAR (CLEAR); APPEARANCE,UNSPUN,BODY FLUID HAZY (CLEAR); COLOR,BODY FLUID YELLOW (LT YELLOW); SPECIMENTYPE,BODY FLUID PLEURAL
[2018-03-28 19:08] LABS: POLYNUCLEAR, BODY FLUID 94 %; RBC, BODY FLUID 680 /cu. mm.; TOTAL VOLUME,BODY FLUID 100 mL; WBC, BODY FLUID 1624 /cu. mm.
--- NOTE | 2018-03-28 19:10 | NUR ---
GAVE BEDSIDE REPORT TO TERRAZZO MECHANIC HELPER NURSE. PATIENT IS IN STABLE CONDITION
--- NOTE | 2018-03-28 19:12 | NUR ---
RECEIVED PATIENT RESTING ON BED IN HIGH FOWLERS POSITION WITH CHEST TUBE DRY AND INTACT CONNECTED TO PIGTAIL AT LEFT POSTERIOR BACK. FALL PRECAUTION IMPLEMENTED. CALL LIGHT WITHIN REACH.
[2018-03-28 20:00] VITALS: BP 132/62
[2018-03-28] MEDS: TAMSULOSIN 0.4 MG CAP PO SCH (20:41)
--- NOTE | 2018-03-28 21:00 | NUR ---
BS TAKEN AND RECORDED. MEDICATION GIVEN AND TOLERATED WELL. ALIE CLEAN DONE AND REPOSITIONED FOR COMFORT. NO S/S OF DISTRESS NOTED AT THIS TIME. WILL CONTINUE TO MONITOR.
[2018-03-28] MEDS: INSULIN LANTUS 100 UNITS/ML 10 ML VIAL SUBQ SCH (21:02)
--- NOTE | 2018-03-28 23:06 | NUR ---
SEEN PATIENT RESTING ON BED IN HIGH FOWLERS POSITION. CALL LIGHT WITHIN REACH. ALARM ON FOR SAFETY. WILL CONTINUE TO MONITOR.
[2018-03-28 23:58] VITALS: BP 143/68
--- NOTE | 2018-03-29 02:05 | NUR ---
CHECKED PATIENT ASLEEP . CHEST TUBE PIGTAIL DRY AND INTACT. TRIED TO REMIND PATIENT TO KEEP THE OXIMIZER IN PLACE. WILL CONTINUE TO MONITOR. CHANGE BED PADS AND PLACE IN COMFORTABLE POSITION.
[2018-03-29 04:00] VITALS: BP 131/62
--- NOTE | 2018-03-29 04:25 | NUR ---
ALIE/AM CARE DONE . POSITIONED PATIENT IN COMFORTABLE POSITION. CHEST TUBE DRY AND INTACT CONNECTED TO PIGTAIL. ALL NEEDS ATTENDED. WILL CONTINUE TO MONITOR.
[2018-03-29] MEDS: VANCOMYCIN 750 MG in DEXTROSE 5% 250 ML IV SCH (04:30)
[2018-03-29] MEDS: MEROPENEM 500 MG in NACL 0.9% 50 ML IV SCH ×2 (04:30→12:24)
[2018-03-29 04:33] LABS: ALBUMIN 1.5 g/dL (3.4-5.0); ANION GAP 7.7 (8-16); CARBON DIOXIDE 31.7 mmol/L (21-32); MAGNESIUM 1.5 mg/dL (1.8-2.4); POTASSIUM 3.4 mmol/L (3.5-5.1); TOTAL BILIRUBIN 0.3 mg/dL (0.0-1.0)
[2018-03-29 05:01] LABS: BASOPHILS # (AUTO) 0.1 K/uL (0.00-0.22); EOSINOPHILS # (AUTO) 0.2 K/uL (0-0.4); EOSINOPHILS % (AUTO) 1.4 % (0.0-4.0); HEMATOCRIT 31.1 % (36-52); HEMOGLOBIN 10.4 g/dL (12.0-18.0); LYMPHOCYTES # (AUTO) 1.2 K/uL (2.0-11.5); LYMPHOCYTES % (AUTO) 9.5 % (20.5-51.1); MEAN CORPUSCULAR HEMOGLOBIN 25 pg (27-31); MEAN CORPUSCULAR HGB CONC 33 g/dL (33-37); MONOCYTES # (AUTO) 0.9 K/uL (0.8-1.0); MONOCYTES % (AUTO) 7.3 % (1.7-9.3); NEUTROPHILS # (AUTO) 9.9 K/uL (1.8-7.7); NEUTROPHILS % (AUTO) 80.8 % (42.2-75.2); PLATELET COUNT (AUTO) 543 K/uL (140-450); RED BLOOD CELL COUNT(AUTO) 4.09 MIL/uL (4.20-6.10); RED CELL DISTRIBUTION WIDTH 14.5 % (11.6-13.7); WHITE BLOOD COUNT (AUTO) 12.3 K/uL (4.8-10.8)
[2018-03-29] MEDS: BLOOD GLUCOSE MONITORING 1 DEV DEV FS SCH ×3 (06:29→16:46)
--- NOTE | 2018-03-29 07:05 | NUR ---
ENDORSEMENT GIVEN AT BEDSIDE TO AM SHIFT NURSE FOR CONTINUITY OF CARE. PATIENT IN STABLE CONDITION.
--- NOTE | 2018-03-29 07:06 | NUR ---
RECEIVED BEDSIDE REPORT FROM QA TEST ANALYST NURSE. PATIENT IS AWAKE. ALERT TO HIS NAME. REFUSED TO TELL ME HIS BIRTHDAY AND REFUSED TO ANSWER ANY OTHER QUESTIONS AT THIS TIME. HE IS ON ROOM AIR SATING AT 86 AND EXPLAINED TO HIM HE NEEDED HIS OXYMIZER. HE HIT MY HAND AND SAID NO!. HE EVEN REFUSED RESPIRATORY. WILL TRY TO PUT OXYGEN AGAIN. HX OF DEMENTIA. PATIENT IS BEDREST. R BKA. L LEG ABRASION. HEAD HAS WOUND FROM TINEAS CAPITUS. CHEST TUBE POSTERIOR ON BACK. PIGTAIL HAS SCANT YELLOW DRAINAGE. TELE MONITOR IS IN PLACE. R HAND 20G INFUSING NS AT 30. CLEAN, DRY AND INTACT. BED IN LOW POSITION. CALL LIGHT WITHIN REACH. WILL CONTINUE TO MONITOR THE PATIENT.
[2018-03-29] MEDS: ALBUTEROL SULFATE/IPRATROPIU 3 ML SOL IH SCH ×2 (07:36→13:30)
--- NOTE | 2018-03-29 07:36 | NUR ---
PATIENT REFUSED HHN THERAPY AFTRE 7 MINS PATIENT ALSO REFUSED SUPPLEMENTAL OXYGEN CHARITY/RN AND CHANEL/RN AWARE Addendum: 03/29/18 at 0752 by Antoine Wade RT PATIENT STATING "NO" ON FOREMENTIONED
[2018-03-29 08:00] VITALS: BP 131/69
[2018-03-29] MEDS: ASPIRIN 81 MG TAB.CHEW PO SCH (08:40)
[2018-03-29] MEDS: ARIPiprazole 10 MG TAB PO SCH (08:40)
[2018-03-29] MEDS: metFORMIN 850 MG TAB PO SCH (08:40)
[2018-03-29] MEDS: MAGNESIUM OXIDE 400 MG TAB PO SCH (08:40)
[2018-03-29] MEDS: FERROUS SULFATE 325 MG TABEC PO SCH (08:41)
[2018-03-29] MEDS: SENNA 8.6 MG TAB PO SCH (08:41)
[2018-03-29] MEDS: NACL 0.9% 1,000 ML IV SCH (08:41)
[2018-03-29] MEDS: SERTRALINE 50 MG TAB PO SCH (08:41)
[2018-03-29] MEDS: TIMOLOL OP 0.5% 5 ML BTL LEFT EYE SCH (08:41)
[2018-03-29] MEDS: PANTOPRAZOLE 40 MG TABEC PO SCH (08:41)
[2018-03-29] MEDS: BRIMONIDINE TARTRATE 0.2% OP 5 ML BTL LEFT EYE SCH ×2 (08:41→12:24)
[2018-03-29] MEDS: KETOCONAZOLE 2% 15 GM TUBE TP SCH (08:42)
[2018-03-29] MEDS: Z-GUARD PASTE TP SCH (08:42)
--- NOTE | 2018-03-29 08:46 | NUR ---
ADMINISTERED MEDS. PATIENT TOLERATED WELL. NO COMPLAINTS AT THIS TIME. ASKING IF HE CAN EXERCISE LATER. WILL EXERCISE PATIENT LATER, UNLESS PT IS ON THE FLOOR TODAY.
--- NOTE | 2018-03-29 09:14 | NUR ---
PATIENT CURRENTLY EXERCISING WITH PT.
--- NOTE | 2018-03-29 10:15 | NUR ---
Master Welder Notes: I called Minh Baseball Club Manager Form [facility] at to discuss patient's Inquiring for a needed SNF placement for antibiotics. I also informed Minh about Patient's clinicals, MD order and forms were send to [facility] on 03/26/18. Per Minh he will review patient's Clinicals and will call me back with a response in an hour or two.
--- NOTE | 2018-03-29 11:08 | NUR ---
Toys And Games Hand Finisher Notes: I called Radha From [facility] at to follow up about communication with Patient's son Vasyl Conklin. Per Radha their facility has also attempted several times to contact Patients son and left voice mail MGS but no response yet from Vasly Rubin. I thank Radha for her information and requested a follow up call when patient's son makes contact with their facility she agreed and I ended the call.
[2018-03-29 12:00] VITALS: BP 144/70
[2018-03-29] MEDS: INSULIN LISPRO SLIDING SCALE 100 UNITS/ML VIAL SUBQ PRN (12:21)
--- NOTE | 2018-03-29 12:55 | NUR ---
PATIENT IS SLEEPING. NO SIGNS OF DISTRESS ON 3 L NC.
[2018-03-29] MEDS ORDERED: POTASSIUM CHLORIDE 10 MEQ TABER PO SCH (13:03)
--- NOTE | 2018-03-29 14:00 | NUR ---
Avionics Systems Repairer Notes: Florist Manager Minh from [facility] call me back stating that patient is been accepted to their facility under skilled care at bed 29B with accepting Dr. Barahona and requested for patient to be transported after 17:00 today. I thanked Minh for his information and I ended the call. Coat Ironer Hand Annika was made aware and will arrange transport for Patient to [facility].
[2018-03-29 16:00] VITALS: BP 129/64
[2018-03-29] MEDS ORDERED: GLU500 PO (16:17)
[2018-03-29] MEDS ORDERED: SITA50TA3 PO (16:17)
[2018-03-29] MEDS ORDERED: INSU100S22 SUBQ (16:17)
[2018-03-29] MEDS ORDERED: [UNRECOGNIZED DRUG - CODE] IV (16:41)
[2018-03-29] MEDS ORDERED: MER500I IV (16:41)
--- NOTE | 2018-03-29 17:30 | NUR ---
EDUCATED PATIENT ON DISEASE. ABN S/SX. WHEN TO GO TO THE NEAREST ER. HOW TO CLEAN WOUNDS AND ABN S/SX OF WOUNDS, CHEST TUBE CLEANING AND CARE. EDUCATED PATIENT ON MEDS. AND FOLLOW UP WITH . PATIENT UNABLE TO VERBALIZE UNDERSTANDING. HILDA HIS NURSE IN [facility] VERBALIZED UNDERSTANDING. CALL QUESTIONS ANSWERED. REPORT GIVEN, GAVE HER MY CALL BACK NUMBER. ID BANDS REMOVED. TELE REMOVED. PATIENT LEFT WITH [facility], REPORT GIVEN. PATIENT IN STABLE CONDITION. PATIENT LEFT WITH IV AND CHEST TUBE
--- NOTE | 2018-03-29 18:21 | NUR ---
MAKE UP MAN NOTE S/O: Pt seen at bedside awake. Pt reported that he is able to swallow fine but has a low appetite. RN also reported pt able to eat/swallow without difficulties but has decreased appetite. Other than answer questions, pt refused PO trials or to participate in dysphagia therapy. A/P: According to RN, pt is tolerating regular diet with thin liquids without difficulty, although he has reduced appetite and does not eat much. Pt refused PO trials with MAKE UP MAN. Mateo Wright, MAKE UP MAN
[2018-03-30] MEDS ORDERED: POTASSIUM CHLORIDE 10 MEQ TABER PO SCH (09:00)
--- NOTE | 2018-03-30 11:41 | NUR ---
WIRE DROPPER NOTE Pt discharged to a SNF. Pt refused to participate in speech therapy while in facility. G8996: RUSTY G8997: CI G8998: RUSTY Nunn NOMS 5 Mateo Wright, WIRE DROPPER
== END 2018-03-29 17:30 | DRG 871 ==
LOC: MED 08:26 → MTU 11:30
PROVIDERS: ADMIT Family Medicine; ATTEND Family Medicine
PROC: 0W9B3ZZ Drainage of Left Pleural Cavity, Percutaneous Approach (ICD-10-PCS; principal; 2018-03-27)
DX: A41.9 Sepsis, unspecified organism (principal); J69.0 Pneumonitis due to inhalation of food and vomit; E43 Unspecified severe protein-calorie malnutrition; J86.9 Pyothorax without fistula; J96.91 Respiratory failure, unspecified with hypoxia; N39.0 Urinary tract infection, site not specified; E87.1 Hypo-osmolality and hyponatremia; J90 Pleural effusion, not elsewhere classified; E11.65 Type 2 diabetes mellitus with hyperglycemia; K21.9 Gastro-esophageal reflux disease without esophagitis; B95.2 Enterococcus as the cause of diseases classified elsewhere; E11.51 Type 2 diabetes mellitus with diabetic peripheral angiopathy without gangrene; E78.5 Hyperlipidemia, unspecified; F03.90 Unspecified dementia, unspecified severity, without behavioral disturbance, psychotic disturbance, mood disturbance, and anxiety; H54.61 Unqualified visual loss, right eye, normal vision left eye; H40.10X0 Unspecified open-angle glaucoma, stage unspecified; N13.9 Obstructive and reflux uropathy, unspecified; S00.01XA Abrasion of scalp, initial encounter; X58.XXXA Exposure to other specified factors, initial encounter; S80.812A Abrasion, left lower leg, initial encounter; F39 Unspecified mood [affective] disorder; F79 Unspecified intellectual disabilities; E87.6 Hypokalemia; I10 Essential (primary) hypertension; K27.9 Peptic ulcer, site unspecified, unspecified as acute or chronic, without hemorrhage or perforation; Z88.0 Allergy status to penicillin; Z89.511 Acquired absence of right leg below knee; Z88.1 Allergy status to other antibiotic agents; Z88.8 Allergy status to other drugs, medicaments and biological substances; Z79.899 Other long term (current) drug therapy; Z79.82 Long term (current) use of aspirin; Z79.4 Long term (current) use of insulin; Y93.89 Activity, other specified; Y92.89 Other specified places as the place of occurrence of the external cause; Y99.8 Other external cause status; Z68.28 Body mass index [BMI] 28.0-28.9, adult
CPT/HCPCS: 36415; 36600; 70450; 71045; 71250; 76360; 76604; 76770; 80048; 80053; 80202; 81001; 82009; 82803; 82945; 82948; 83036; 83605; 83690; 83735; 83880; 83930; 83935; 84100; 84157; 84300; 84436; 84443; 84479; 84484; 85025; 85610; 85730; 87040; 87070; 87075; 87081; 87086; 87186; 87205; 89051; 92610; 93005; 94640; 96361; 96365; 96375; 97110; 97140; 97530; 97535; 97799; 99285; C1758; J1815; J1940; J1956; J2185; J2543; J3370; J3475; J3490; J7030; J7060; J7620; Q0092

== ENCOUNTER 2018-04-05 08:37 | Inpatient (IN) | payer OTHER ==
[~2018-04-05] VITALS: Ht 172.7 cm; Wt 81.2 kg
[~2018-04-05 08:37] MED LIST changes: +BACTO TP; -CLIN300C2 PO; -GLIP5TAB4 PO; -KETO2CRE3 TP; -LEVO750T2 PO; +MER500I IV; +[UNRECOGNIZED DRUG - CODE] IV; -[UNRECOGNIZED DRUG - CODE] TP
--- NOTE | 2018-04-05 08:38 | NUR ---
PT BIBA BLS TO BED 4
[2018-04-05 08:46] VITALS: BP 136/71
--- NOTE | 2018-04-05 08:56 | NUR ---
DR HOLLINS EVALUATING AT BEDSIDE
--- NOTE | 2018-04-05 09:00 | NUR ---
REPORT RECIVED FROM JOSIE RN,ASSUMED CARE AT THIS TIME. PT IN STABLE CONDITION
--- NOTE | 2018-04-05 09:05 | NUR ---
XRAY AT BEDSIDE
--- NOTE | 2018-04-05 09:05 | NUR ---
BIBA WITH C/O PULLED OUT CHEST TUBE TODAY AT APPROX 0715 TODAY. CHEST TUBE PLACEMENT FOR PNEMONIA PER [facility] REPORT. RR ARE TACHYNEPIC AND EVEN. PULSE OX=89% ON RA. PATIENT IS ALERT AND AWAKE. PT DENIES ANY PAIN, SOB, OR CHEST PAIN. GCS=14, PER [facility] BLS REPORT. HX--SEPSIS, PNA, UTI, DM, (R) BKA
[2018-04-05] MEDS: NACL 0.9% 1,000 ML IV SCH (10:20)
[2018-04-05] MEDS ORDERED: DOCUSATE SODIUM 100 MG GELCAP PO PRN (10:20)
[2018-04-05] MEDS ORDERED: HYDROcodone/APAP 7.5/325 MG 1 TAB PO PRN (10:20)
[2018-04-05] MEDS ORDERED: ACETAMINOPHEN 325 MG TAB PO PRN (10:20)
[2018-04-05] MEDS ORDERED: ONDANSETRON 4 MG/2 ML VIAL IM/IVP PRN (10:20)
--- NOTE | 2018-04-05 11:15 | NUR ---
Patient will be admitted to care of DR. PENALOZA. Admited to TELE . Will go to room 123 A. Belongings list completed. Report to RENETTA BELL.
[2018-04-05 11:19] LABS: BASOPHILS # (AUTO) 0.1 K/uL (0.00-0.22); BASOPHILS % (AUTO) 0.7 % (0.0-2.0); EOSINOPHILS # (AUTO) 0.2 K/uL (0-0.4); EOSINOPHILS % (AUTO) 1.6 % (0.0-4.0); HEMOGLOBIN 10.7 g/dL (12.0-18.0); LYMPHOCYTES # (AUTO) 1.1 K/uL (2.0-11.5); LYMPHOCYTES % (AUTO) 9.9 % (20.5-51.1); MEAN CORPUSCULAR HEMOGLOBIN 25 pg (27-31); MEAN CORPUSCULAR HGB CONC 32 g/dL (33-37); MONOCYTES # (AUTO) 0.8 K/uL (0.8-1.0); MONOCYTES % (AUTO) 6.8 % (1.7-9.3); NEUTROPHILS # (AUTO) 9.4 K/uL (1.8-7.7); PLATELET COUNT (AUTO) 548 K/uL (140-450); RED BLOOD CELL COUNT(AUTO) 4.36 MIL/uL (4.20-6.10); RED CELL DISTRIBUTION WIDTH 14.8 % (11.6-13.7); WHITE BLOOD COUNT (AUTO) 11.7 K/uL (4.8-10.8)
[2018-04-05 11:20] VITALS: BP 145/69
--- NOTE | 2018-04-05 11:20 | NUR ---
RECEIVED PATIENT ON [facility]. RECEIVED REPORT FROM ER NURSE. PATIENT IS ALERT AND ORIENTED X3 AT THIS TIME. PATIENT HAS AN IV ON HIS RIGHT HAND 22G WITH HANGING NORMAL SALINE. PATIENT ON OXYGEN AT THIS TIME. NO DISTRESS NOTED. DENIES PAIN. PATIENT HAS WOUNDS ON HIS RIGHT ELBOW AREA AND SCALP AREA. REDNESS AND SCABS NOTED ON PATIENT'S LEFT LOWER BROWN. PUT PATIENT IN SEMI-FOWLERS POSITION. UPDATED BOARD IN PATIENT'S ROOM. VITAL SIGNS WITHIN NORMAL LIMITS. WILL CONTINUE TO MONITOR PATIENT.
--- NOTE | 2018-04-05 11:45 | NUR ---
PATIENT FOUND WITHOUT NASAL CANNULA ON. PATIENT REFUSED OXYGEN. PATIENT O2 SATURATION IS 86% ON ROOM AIR. WILL NOTIFY DR OF FINDINGS.
[2018-04-05 11:49] LABS: PROTHROMBIN TIME 10.5 secs (10.8-13.4)
[2018-04-05 12:01] LABS: CHOL/HDL RATIO 3.8 (1-4.5); FREE T4 (FREE THYROXINE) 1.32 ng/dL (0.76-1.46); MAGNESIUM 1.5 mg/dL (1.8-2.4)
--- NOTE | 2018-04-05 12:20 | NUR ---
NOTIFIED DR OF FINDINGS. PATIENT IS CONSISTENTLY AT 84-88%. WILL CONTINUE TO MONITOR O2 SATURATION.
[2018-04-05 12:22] LABS: THYROID STIMULATING HORMONE 4.85 uIU/mL (0.34-3.74)
[2018-04-05] MEDS ORDERED: DEXTROSE 50% 50 ML SYR IVP PRN (13:35)
[2018-04-05 16:00] VITALS: BP 140/70
[2018-04-05] MEDS: BLOOD GLUCOSE MONITORING 1 DEV DEV FS SCH ×2 (16:38→21:00)
[2018-04-05] MEDS: INSULIN LISPRO SLIDING SCALE 100 UNITS/ML VIAL SUBQ PRN ×2 (16:41→20:29)
[2018-04-05] MEDS ORDERED: VANCOMYCIN PER PHARMACY MC PRN (16:45)
[2018-04-05] MEDS: glipiZIDE 10 MG TAB PO SCH (16:45)
[2018-04-05] MEDS ORDERED: metFORMIN 850 MG TAB PO SCH (17:00)
[2018-04-05 17:19] LABS: ALBUMIN 1.9 g/dL (3.4-5.0); ANION GAP 13.1 (8-16); CREATININE 0.9 mg/dL (0.7-1.3); POTASSIUM 4.1 mmol/L (3.5-5.1); TOTAL BILIRUBIN 0.4 mg/dL (0.0-1.0)
[2018-04-05] MEDS: VANCOMYCIN 1GM/DEXT 5% PREMIX 200 ML IV SCH (18:00)
--- NOTE | 2018-04-05 18:00 | NUR ---
PATIENT REFUSED VANCOMYCIN MEDICATION. EXPLAINED BENEFITS OF MEDICATION. PATIENT STILL REFUSED.
--- NOTE | 2018-04-05 18:23 | NUR ---
PATIENT REFUSED ANTIBIOTIC VANCOMYCIN. WILL FOLLOW UP WITH DOCTOR.
--- NOTE | 2018-04-05 19:25 | NUR ---
GAVE REPORT TO NIGHTSHIFT NURSE AT BEDSIDE. PATIENT IN STABLE CONDITION.
--- NOTE | 2018-04-05 19:25 | NUR ---
RECEIVED PATIENT AWAKE LYING ON BED. BED IN LOW POSITION. PATIENT DECLINE TO NASAL CANNULA. EXPLAINED TO PATIENT THE IMPORTANCE OF HAVING OXYGEN. FALL PRECAUTION IMPLEMENTED. CALL LIGHTS WITHIN REACH .WILL CONTINUE TO MONITOR.
--- NOTE | 2018-04-05 19:28 | NUR ---
PATIENT REFUSED MRSA SCREEN SWAB OF NOSE. EXPLAINED TO PATIENT WHAT IT IS FOR AND WHY WE DO IT. PATIENT STILL REFUSED.
--- NOTE | 2018-04-05 19:31 | NUR ---
TOOK PICTURES OF PATIENT'S WOUND ON LEFT BACK AND ALSO LEFT BROWN.
[2018-04-05] MEDS: TAMSULOSIN 0.4 MG CAP PO SCH (20:16)
[2018-04-05] MEDS: MAGNESIUM OXIDE 400 MG TAB PO SCH (20:16)
[2018-04-05] MEDS: TIMOLOL OP 0.5% 5 ML BTL OP SCH (21:00)
--- NOTE | 2018-04-05 21:00 | NUR ---
MEDICATION GIVEN AND BS TAKEN AND RECORDED. PATIENT REFUSED TO IV INSERTED IN PREPARATION FOR CT SCAN. CHANGED BED UNDER PADS AND PLACE IN SEMI-FOWLERS POSITION FOR ASPIRATION PRECAUTIONS. PATIENT DECLINE NASAL CANNULA. CALL LIGHT WITHIN REACH.
[2018-04-05] MEDS ORDERED: ALBUTEROL SULFATE/IPRATROPIU 3 ML SOL IH PRN (21:20)
[2018-04-05 22:29] VITALS: BP 152/80
[2018-04-05] MEDS: ALBUTEROL SULFATE/IPRATROPIU 3 ML SOL IH SCH (22:41)
--- NOTE | 2018-04-05 22:48 | NUR ---
2245 TRIED TO GIVE PATIENT HHNTX BUT PT WOULD NOT LET ME GIVE IT TO HIM. PT SWUNG AT ME. PT WOULD NOT WEAR HIS OXYGEN. SATS ON ROOM AIR WERE 88% TO 92%. RESIDENT WAS TOLD PT WOULD NOT TAKE HHNTX OR WEAR O2
--- NOTE | 2018-04-06 | NUR ---
SEEN PATIENT ASLEEP IN BED IN FOWLERS POSITION BUT EASILY AROUSABLE . PATIENT DECLINE TO WEAR THE NASAL CANNULA RESIDENT AWARE. FALL PRECAUTION IMPLEMENTED. WILL CONTINUE TO MONITOR.
--- NOTE | 2018-04-06 02:18 | NUR ---
SPOKE TO DR. CORDOVA ABOUT PATIENT REFUSING TO HAVE ANOTHER IV ACCESS FOR CT AND ALSO REFUSING WEARING NASAL CANNULA. DR. CORDOVA TALK TO THE PATIENT TO EXPLAIN THE IMPORTANCE OF THE PROCEDURE AND STILL DECLINING. TALK TO THE RADIOLOGY STAFF PATIENT REFUSING THE IV ACCESS . WILL CONTINUE TO MONITOR.
[2018-04-06] MEDS: NACL 0.9% 1,000 ML IV SCH ×2 (03:00→19:40)
[2018-04-06 04:00] VITALS: BP 156/88
[2018-04-06] MEDS: VANCOMYCIN 1GM/DEXT 5% PREMIX 200 ML IV SCH (05:16)
--- NOTE | 2018-04-06 05:17 | NUR ---
PATIENT REFUSED VANCOMYCIN MEDICATION. EXPLAINED THE IMPORTANCE OF MEDICATION. RESIDENTS AWARE.
[2018-04-06 06:09] LABS: BASOPHILS # (AUTO) 0.1 K/uL (0.00-0.22); BASOPHILS % (AUTO) 0.9 % (0.0-2.0); EOSINOPHILS # (AUTO) 0.2 K/uL (0-0.4); EOSINOPHILS % (AUTO) 2.2 % (0.0-4.0); HEMATOCRIT 31.8 % (36-52); HEMOGLOBIN 10.2 g/dL (12.0-18.0); LYMPHOCYTES # (AUTO) 1.4 K/uL (2.0-11.5); LYMPHOCYTES % (AUTO) 13.8 % (20.5-51.1); MEAN CORPUSCULAR HEMOGLOBIN 25 pg (27-31); MEAN CORPUSCULAR HGB CONC 32 g/dL (33-37); MONOCYTES # (AUTO) 0.8 K/uL (0.8-1.0); NEUTROPHILS # (AUTO) 7.4 K/uL (1.8-7.7); NEUTROPHILS % (AUTO) 75.1 % (42.2-75.2); PLATELET COUNT (AUTO) 484 K/uL (140-450); RED BLOOD CELL COUNT(AUTO) 4.07 MIL/uL (4.20-6.10); RED CELL DISTRIBUTION WIDTH 14.9 % (11.6-13.7); WHITE BLOOD COUNT (AUTO) 9.9 K/uL (4.8-10.8)
[2018-04-06] MEDS: PANTOPRAZOLE 40 MG TABEC PO SCH (06:16)
[2018-04-06 06:21] LABS: T4 (THYROXINE) 5.9 ug/dL (4.5-12.0)
[2018-04-06] MEDS: INSULIN LISPRO SLIDING SCALE 100 UNITS/ML VIAL SUBQ PRN ×3 (06:23→21:26)
[2018-04-06] MEDS: BLOOD GLUCOSE MONITORING 1 DEV DEV FS SCH ×4 (06:29→21:11)
[2018-04-06 06:31] LABS: ANION GAP 9.7 (8-16); CARBON DIOXIDE 30.1 mmol/L (21-32); CREATININE 0.9 mg/dL (0.7-1.3); POTASSIUM 3.8 mmol/L (3.5-5.1)
[2018-04-06] MEDS: glipiZIDE 10 MG TAB PO SCH ×2 (06:34→16:27)
--- NOTE | 2018-04-06 07:00 | NUR ---
ENDORSEMENT GIVEN TO AM SHIFT NURSE AT PATIENT BEDSIDE. CALL LIGHTS WITHIN REACH. PATIENT IN STABLE CONDITION.
--- NOTE | 2018-04-06 07:00 | NUR ---
RECEIVED REPORT AT BEDSIDE FROM NIGHTSHIFT NURSE. PATIENT FOUND IN HIGH-FOWLERS POSITION WITH OXYGEN OFF. AWARE OF PATIENT REFUSING OXYGEN. PATIENT HAS AN IV ON RIGHT HAND 22G RUNNING NORMAL SALINE AT 60 ML /HR. PATIENT DOES NOT SHOW ANY SIGNS OF OBVIOUS DISTRESS. WOUNDS NOTED ON HEAD, RIGHT ELBOW, LEFT BROWN, AND LEFT BACK. NO PAIN NOTED. UPDATED BOARD IN PATIENT'S ROOM. LOWERED BED TO LOWEST SETTING. WILL CONTINUE TO MONITOR PATIENT.
[2018-04-06] MEDS: ALBUTEROL SULFATE/IPRATROPIU 3 ML SOL IH SCH (07:08)
[2018-04-06 08:00] VITALS: BP 153/77
[2018-04-06] MEDS: FERROUS SULFATE 325 MG TABEC PO SCH (08:38)
[2018-04-06] MEDS: ASPIRIN 81 MG TAB.CHEW PO SCH (08:38)
[2018-04-06] MEDS: SERTRALINE 50 MG TAB PO SCH (08:38)
[2018-04-06] MEDS: MAGNESIUM OXIDE 400 MG TAB PO SCH ×2 (08:38→20:47)
[2018-04-06] MEDS: ARIPiprazole 10 MG TAB PO SCH (08:38)
[2018-04-06] MEDS: TIMOLOL OP 0.5% 5 ML BTL OP SCH ×2 (08:39→20:47)
--- NOTE | 2018-04-06 08:39 | NUR ---
PATIENT TOOK ALL AM MEDICATIONS. PATIENT TOLERATED WELL. WILL CONTINUE TO MONITOR PATIENT
--- NOTE | 2018-04-06 08:57 | NUR ---
PATIENT HAS BEEN SCREENED AND CATEGORIZED HIGH NUTRITION RISK. PATIENT WILL BE SEEN WITHIN 1-2 DAYS OF ADMISSION. 04/06/[address]
[2018-04-06] MEDS: INSULIN LANTUS 100 UNITS/ML 10 ML VIAL SUBQ SCH (09:02)
[2018-04-06] MEDS: LEVOFLOXACIN 750 MG/D5W PREMIX 150 ML IV SCH (11:25)
[2018-04-06 12:00] VITALS: BP 146/78
--- NOTE | 2018-04-06 12:00 | NUR ---
PATIENT BLOOD SUGAR IS 179. NO MAINTENANCE BLOOD SUGAR FLUIDS PRESCRIBED. HELD INSULIN FROM PATIENT. PATIENT SHOWS NO SIGNS OF HYPERGLYCEMIA. WILL CONTINUE TO MONITOR PATIENT.
--- NOTE | 2018-04-06 12:46 | NUR ---
PATIENT REFUSED TO GIVE SAMPLE FOR SPUTUM CULTURE. PATIENT SAYS, "FORGET IT". WILL NOTIFY
[2018-04-06] MEDS ORDERED: CLINDAMYCIN 600 MG in DEXTROSE 5% 50 ML IV SCH (13:00)
[2018-04-06] MEDS: CLINDAMYCIN PHOS 600MG/D5W PM 50 ML IV SCH ×2 (13:53→20:47)
--- NOTE | 2018-04-06 14:25 | NUR ---
PATIENT RESTING. WILL CONTINUE TO MONITOR PATIENT.
--- NOTE | 2018-04-06 15:17 | NUR ---
04/06/18 RD INITIAL ASSESSMENT COMPLETED PLEASE REFER TO NUTRITION ASSESSMENT UNDER CARE ACTIVITY FOR ESTIMATED NUTRITIONAL NEEDS. CONTINUE [facility] 60GM DIET TOLERATED 2. RD TO FOLLOW-UP 5-7 DAYS, LOW RISK MIKE MARINELLI RD
[2018-04-06 16:00] VITALS: BP 120/61
--- NOTE | 2018-04-06 16:40 | NUR ---
PATIENT RESTING IN BED. NO DISTRESS NOTED. WILL CONTINUE TO MONITOR PATIENT.
--- NOTE | 2018-04-06 19:15 | NUR ---
GAVE REPORT TO NIGHTSHIFT NURSE. PATIENT IN STABLE CONDITION.
--- NOTE | 2018-04-06 19:16 | NUR ---
REPORT RECEIVED FROM AM NURSE. PT IN STABLE CONDITION. AAOX3. INTRODUCED SELF AND BOARD UPDATED. IV SITE PATENT AND INTACT. SKIN WARM, DRY, NOT INTACT. BED LOCKED IN LOW POSITION. CALL AJ WITHIN REACH. PT REFUSES TO PUT ON NASAL CANNULA.
[2018-04-06 20:00] VITALS: BP 120/62
[2018-04-06] MEDS: TAMSULOSIN 0.4 MG CAP PO SCH (20:47)
--- NOTE | 2018-04-06 20:47 | NUR ---
PM MEDS GIVEN. PT TOLERATED WELL.
[2018-04-07] VITALS: BP 104/48
--- NOTE | 2018-04-07 01:00 | NUR ---
MISSING MRSA SWAB SPECIMEN FOR LAB. ATTEMPTED WITH KAMILLE BELLCARDIAC RN NURSE TO GET SPECIMEN AND PT WAS VERY COMBATIVE. PT STATES HE DOESNT WANT THE NASAL SWAB BECAUSE HE HAS BAD ALLERGIES. ABLE TO GET A SWAB SAMPLE.
--- NOTE | 2018-04-07 03:55 | NUR ---
PT HAD A BM AND VOID.
[2018-04-07 04:00] VITALS: BP 137/68
[2018-04-07] MEDS: CLINDAMYCIN PHOS 600MG/D5W PM 50 ML IV SCH ×3 (05:33→21:06)
[2018-04-07] MEDS: PANTOPRAZOLE 40 MG TABEC PO SCH ×2 (05:33→05:40)
--- NOTE | 2018-04-07 05:45 | NUR ---
PT REFUSED BS. WILL ENDORSE TO AM SHIFT WHEN PT IS MORE AWAKE.
[2018-04-07 05:55] LABS: BASOPHILS # (AUTO) 0.1 K/uL (0.00-0.22); BASOPHILS % (AUTO) 1.1 % (0.0-2.0); EOSINOPHILS # (AUTO) 0.2 K/uL (0-0.4); EOSINOPHILS % (AUTO) 2.5 % (0.0-4.0); LYMPHOCYTES # (AUTO) 1.3 K/uL (2.0-11.5); LYMPHOCYTES % (AUTO) 13.7 % (20.5-51.1); MEAN CORPUSCULAR HEMOGLOBIN 25 pg (27-31); MEAN CORPUSCULAR HGB CONC 32 g/dL (33-37); MEAN CORPUSCULAR VOLUME 78.1 fL (80-94); MONOCYTES # (AUTO) 0.8 K/uL (0.8-1.0); MONOCYTES % (AUTO) 8.2 % (1.7-9.3); NEUTROPHILS % (AUTO) 74.5 % (42.2-75.2); PLATELET COUNT (AUTO) 455 K/uL (140-450); RED BLOOD CELL COUNT(AUTO) 3.97 MIL/uL (4.20-6.10); RED CELL DISTRIBUTION WIDTH 14.9 % (11.6-13.7); WHITE BLOOD COUNT (AUTO) 9.4 K/uL (4.8-10.8)
[2018-04-07 06:37] LABS: ANION GAP 10.2 (8-16); CARBON DIOXIDE 28.5 mmol/L (21-32); POTASSIUM 3.7 mmol/L (3.5-5.1)
--- NOTE | 2018-04-07 07:15 | NUR ---
REPORT GIVEN TO AM NURSE. PT IN STABLE CONDITION.
--- NOTE | 2018-04-07 07:16 | NUR ---
REPORT RECEIVED FROM COURTESY CAR DRIVER NURSE AT BEDSIDE FOR CONTINUITY OF CARE. PT ASLEEP, IN STABLE CONDITION. AAOX3. UPDATED BOARD. RESPIRATIONS EVEN AND UNLABORED ON ROOM AIR. PER COURTESY CAR DRIVER NURSE, PATIENT REFUSED TO PUT ON NASAL CANULA. IV SITE PATENT AND INTACT. SKIN WARM, DRY, NOT INTACT. SAFETY PRECAUTION IN PLACE, CALL LIGHT WITHIN REACH. BED LOCKED IN LOW POSITION. WILL CONTINUE TO MONITOR PATIENT.
[2018-04-07] MEDS: glipiZIDE 10 MG TAB PO SCH ×2 (07:30→16:30)
[2018-04-07] MEDS: BLOOD GLUCOSE MONITORING 1 DEV DEV FS SCH ×4 (07:30→21:15)
--- NOTE | 2018-04-07 07:45 | NUR ---
PATIENT AGITATED, REQUESTING COFFEE AND FOOD. INFORMED PATIENT OF HIS NPO STATUS FOR PROCEDURE LATER TODAY. PATIENT ANGRY, JUST ASKS FOR COFFEE. PATIENT REFUSING VITAL SIGNS AT THE MOMENT UNTIL HE GETS HIS COFFEE. INFORMED DR. JACKSON OF PATIENT'S STATUS.
[2018-04-07] MEDS: FERROUS SULFATE 325 MG TABEC PO SCH (08:36)
[2018-04-07] MEDS: ASPIRIN 81 MG TAB.CHEW PO SCH (08:36)
[2018-04-07] MEDS: MAGNESIUM OXIDE 400 MG TAB PO SCH ×2 (08:36→21:06)
[2018-04-07] MEDS: ARIPiprazole 10 MG TAB PO SCH (08:36)
[2018-04-07] MEDS: SERTRALINE 50 MG TAB PO SCH (08:36)
[2018-04-07] MEDS: TIMOLOL OP 0.5% 5 ML BTL OP SCH ×2 (08:36→21:06)
--- NOTE | 2018-04-07 08:36 | NUR ---
PATIENT AGREED TO HIS MORNING MEDICATIONS. ORDERED MEDICATIONS GIVEN, BLOOD SUGAR 191. PATIENT TOLERATED THEM WELL. NO SIGNS OF DISTRESS OR SOB NOTED ON ROOM AIR. PATIENT STILL AGITATED AND REQUESTS FOR COFFEE. REINFORCED HIS NPO STATUS. PATIENT ANGRY. WILL CONTINUE TO MONITOR PATIENT. Addendum: 04/07/18 at 1539 by Billy Soto RN O2 SATURATION AT 88-89% ON ROOM AIR. REINFORCED PATIENT'S NEED FOR NASAL CANULA, PATIENT REFUSED AND SAYS THAT "I DON'T NEED IT, MY NOSE IS SENSITIVE, I CAN'T HAVE ANYTHING TOUCHING IT, OR I GET A REACTION." RN VERBALIZED UNDERSTANDING.
[2018-04-07] MEDS: INSULIN LANTUS 100 UNITS/ML 10 ML VIAL SUBQ SCH (08:42)
--- NOTE | 2018-04-07 09:20 | NUR ---
PT IS AWAKE WITH EYES CLOSED EXPLAINED TO PT OF WOUND CARE EVALUATION, PT REFUSES, EXPLAINED X 3 AND PT IS YELLING OUT LOUD. WILL VISIT AGAIN LATER.
[2018-04-07 09:39] VITALS: BP 119/39
--- NOTE | 2018-04-07 10:15 | NUR ---
DEVANTE MEDINA, IN TO SPEAK TO THE PATIENT ABOUT HIS PROCEDURE. PATIENT AGITATED AND DOES NOT AGREE TO PROCEDURE. DR. SUBRAMANIAN IN TO SPEAK TO THE PATIENT. PATIENT REQUESTED FOR COFFEE. INFORMED PATIENT OF HIS NPO STATUS FOR PROCEDURE SO HE CANNOT EAT UNTIL HE GETS IT DONE. WHEN ASKED IF HE WANTED THE PROCEDURE, PATIENT STATED "WHATEVER", AND ASKED TO BE LEFT ALONE. RN, DR. SUBRAMANIAN, AND DEVANTE MEDINA VERBALIZED UNDERSTANDING.
--- NOTE | 2018-04-07 11:25 | NUR ---
DR. SIMS IN TO SEE THE PATIENT.
--- NOTE | 2018-04-07 11:30 | NUR ---
PATIENT ASKED FOR RN, WHEN RN CAME, PATIENT ASKED WHEN HIS PROCEDURE WAS. INFORMED PATIENT THAT HE HAD REFUSED PROCEDURE 1 HOUR PRIOR. PATIENT ASKED WHAT IS "THE PLAN THEN?". SPOKE TO DR. SUBRAMANIAN ABOUT PATIENT'S REQUEST. NEW ORDER FOR PROCEDURE TOMORROW. PATIENT WILL HAVE LUNCH AND DINNER TODAY AND BE NPO AFTER MIDNIGHT FOR PROCEDURE TOMORROW. PATIENT VERBALIZED UNDERSTANDING. SAFETY PRECAUTION IN PLACE, CALL LIGHT WITHIN REACH. WILL CONTINUE TO MONITOR PATIENT.
--- NOTE | 2018-04-07 11:55 | NUR ---
AWAKE AND ALERT RESPONSIVE SATURATION 90% ON ROOM AIR PATIENT REFUSES TO USE SUPPLEMENTAL OXYGEN [place]/RN NOTIFIED
[2018-04-07 12:00] VITALS: BP 132/73
[2018-04-07] MEDS: INSULIN LISPRO SLIDING SCALE 100 UNITS/ML VIAL SUBQ PRN ×2 (12:15→17:26)
--- NOTE | 2018-04-07 12:15 | NUR ---
Transmission Tester Notes: I attempted to meet with Patient to discuss, confirm and gather additional patient information. Patient was getting his IV; was sibley and uncooperative. Patient refused to meet with these typewriter repairer and answer any questions at the time. Stated "Not Now I dont want to talk" These typewriter repairer will attempt again in another time.
[2018-04-07] MEDS: LEVOFLOXACIN 750 MG/D5W PREMIX 150 ML IV SCH (12:19)
[2018-04-07] MEDS: NACL 0.9% 1,000 ML IV SCH (12:22)
--- NOTE | 2018-04-07 13:00 | NUR ---
Photographer Model Notes: I call [facility] and spoke to Andrei from admissions to discuss, confirm and gather additional information about Patient. Per Andrei Patient's family (Son Vasyl Conklin at has not reach out or call their facility). Per Andrei patient is under the care of Dr. Shane Barahona who visit patient's in the facility as needed. Per Andrei patient is on a 7 days skilled bed hold and is welcome to return to their facility when he is ready and clear for discharge. I Provided Andrei with patient's status during his hospitalization, thanked her for the information and I ended the call.
--- NOTE | 2018-04-07 13:42 | NUR ---
JUST FINISHED LUNCH, GOT BACK IN BED. RESTING COMFORTABLY. NO SIGNS OF DISTRESS. NO COMPLAINTS AT THIS TIME. WILL CONTINUE TO MONITOR PT.
--- NOTE | 2018-04-07 13:52 | NUR ---
DR SUBRAMANIAN IN TO SEE PATIENT. PATIENT AGITATED AND VERBALIZING COMPLAINTS ABOUT HIS CARE.
--- NOTE | 2018-04-07 14:05 | NUR ---
CALLED RADIOLOGY, SPOKE TO ADAM GUNTER ABOUT NAME OF PROCEDURE TO OBTAIN CONSENT. WHEN INFORMING PATIENT ABOUT SIGNING CONSENT AND AGREEING TO PROCEDURE, PATIENT ASKED "WHAT IF I DON'T, DOES THAT MEAN THAT I CAN GO HOME", RN VERBALIZED IN THE NEGATIVE. PATIENT DOES NOT WANT TO SIGN CONSENT FOR CT DRAINAGE SCHEDULED FOR TOMORROW. DR. BAILEY INFORMED.
--- NOTE | 2018-04-07 14:15 | NUR ---
TOOTIE, COAL TRIMMER MACHINE OPERATOR, IN TO ASSESS THE PATIENT. WILL AWAIT FOR HER EVALUATION AND RECOMMENDATION.
--- NOTE | 2018-04-07 14:42 | NUR ---
WOUND CARE EVALUATION NOTES: REASON FOR EVALUATION: SCATTER SKIN PICKING WOUNDS SKIN ASSESSMENT DONE ON THIS 67 Y/O MALE PATIENT ADMITTED FROM [facility] TO [facility], WITH INITIAL DIAGNOSIS OF CHEST TUBE FALLING OUT. PT IS [place] ONLY HEAR FROM RIGHT EAR, RIGHT EYE BLINDNESS. PAST MEDICAL HISTORY INCLUDE DM, RIGHT BKA, AND LAST HOSPITAL VISIT, PT HAD HX OF THORACENTESIS WITH LEFT SIDE PIG TAIL DRAIN. ALL ABOVE INFORMATION WAS OBTAINED FROM THE ADMISSION H&P. PATIENT IS AWAKE AND AGREEABLE FOR SKIN ASSESSMENT ONLY IF YOU DONT DO ANY NEW PROCEDURE TO MY BODY. EVERY TIME YOU DO SOMETHING, I GOT INFECTION EXPLAIN TO PT. THIS IS ONLY THE SKIN ASSESSMENT NOT THE PROCEDURE. PT. SKIN WARM AND DRY, MULTIPLE SCABS LEFT LOWER LEG. LLE NO HAIR GROWTH AND PEDAL PULSES PRESENT INTEGUMENTARY: -OLD HEALED SCAR TO RIGHT SCAPULA -RIGHT ELBOW BROWN SCAB 2X1.5CM DRY, ALIE-SCAB SKIN INTACT -RIGHT BKA STUMP DRY AND CLEAN -LLE MULTIPLE SCABS -LEFT SCAPULA DRAIN SITE WITH SUTURE LINE IN PLACE. 0.5X0.5 CM PINK AREA WITH DRY SOFT SCAB OBSERVED. RECOMMENDATIONS: -KEEP LEFT SCAPULA DRAIN SITE DRY AND CLEAN AND COVER WITH DRY DRESSING QD AND PRN IF SOILING -APPLY BODY LOTION TO LLE LEAVE IT OPEN TO AIR -TURN AND REPOSITION PATIENT Q2H -OFFLOAD LEFT HEEL BY PLACING PILLOWS UNDER CALVES AT ALL TIMES, UNLESS OTHERWISE CONTRAINDICATED -PRESSURE REDISTRIBUTION SURFACE THERAPY -KEEP SKIN CLEAN AND DRY AT ALL TIMES. RECOMMENDATIONS DISCUSSED WITH PRIMARY RN WILL FOLLOW UP PATIENT Q 7 -10 DAYS AND PRN. PLEASE CONTACT WOUND CARE NURSE FOR ANY QUESTION OR CHANGES IN WOUND CONDITION
--- NOTE | 2018-04-07 15:39 | NUR ---
1430 CALLED [facility] AND SPOKE WITH PEANUT SHELLER TYRELL TO REQUEST TELE BED FOR HIGHER LEVEL OF CARE AND FAXED FACESHEET AND ORDER TO FAX [phone] AND PHONE [phone] AND ASK FOR PEANUT SHELLER. CALLED [facility] AND SPOKE WITH VIRAL IN BED CONTROL AND SHE TRANSFERRED THE CALL TO ADMITTING AND SPOKE WITH REBECCA AND INFORMED HER THAT I WOULD FAX INFORMATION TO ADMITTING FAX [phone]. NETTING WEAVER PHONE [phone]. PROVIDED BOTH FACILITIES WITH DIRECT LINE TO [facility] IF ANY FURTHER INFORMATION REQUIRED.
[2018-04-07 16:00] VITALS: BP 147/78
--- NOTE | 2018-04-07 17:05 | NUR ---
DR. SANCHEZ IN TO SEE THE PATIENT.
--- NOTE | 2018-04-07 19:29 | NUR ---
REPORT GIVEN TO TURN OUT NURSE AT BEDSIDE FOR CONTINUITY OF CARE. PATIENT IN STABLE CONDITION, SLEEPING.
--- NOTE | 2018-04-07 19:30 | NUR ---
REPORT RECEIVED FROM AM NURSE. PT IN STABLE CONDITION. AAOX2. INTRODUCED SELF TO PT AND BOARD UPDATED. IV SITE PATENT AND INTACT. SKIN WARM, DRY, AND NOT INTACT DUE TO SCABS ON LEFT LEG, RIGHT ELBOW, AND SCALP. BED LOCKED IN LOW POSITION. CALL AJ WITHIN REACH.
[2018-04-07 20:00] VITALS: BP 148/81
--- NOTE | 2018-04-07 20:40 | NUR ---
PT FROM 123A TO 120A.
--- NOTE | 2018-04-07 21:05 | NUR ---
PM MEDS GIVEN. PT TOLERATED WELL. BS 151 AND INSULIN HELD. PT DOES NOT EAT THE SNACK AT NIGHT SO BS MIGHT BOTTOM OUT IN THE AM.
[2018-04-07] MEDS: TAMSULOSIN 0.4 MG CAP PO SCH (21:06)
--- NOTE | 2018-04-07 23:00 | NUR ---
PT SLEEPING COMFORTABLY IN BED. NO S/S OF DISTRESS.
[2018-04-08] VITALS: BP 133/70
--- NOTE | 2018-04-08 02:00 | NUR ---
PT SLEEPING COMFORTABLY IN BED. NO S/S OF DISTRESS. CHEST EXPANSION VISIBLE. WILL CONTINUE TO MONITOR.
--- NOTE | 2018-04-08 03:45 | NUR ---
PT AWAKENED DURING VS CHECK. PT IN STABLE CONDITION.
[2018-04-08 04:00] VITALS: BP 153/85
[2018-04-08] MEDS: NACL 0.9% 1,000 ML IV SCH ×2 (05:00→21:40)
[2018-04-08] MEDS: PANTOPRAZOLE 40 MG TABEC PO SCH (05:47)
[2018-04-08] MEDS: CLINDAMYCIN PHOS 600MG/D5W PM 50 ML IV SCH ×3 (05:49→20:16)
[2018-04-08] MEDS: BLOOD GLUCOSE MONITORING 1 DEV DEV FS SCH ×4 (06:06→17:27)
--- NOTE | 2018-04-08 07:15 | NUR ---
REPORT GIVEN TO AM SHIFT. PT IN STABLE CONDITION.
--- NOTE | 2018-04-08 07:16 | NUR ---
REPORT RECEIVED FROM FILM DEVELOPER NURSE AT BEDSIDE FOR CONTINUITY OF CARE. PT ASLEEP, IN STABLE CONDITION. AAOX3. UPDATED BOARD. RESPIRATIONS EVEN AND UNLABORED ON ROOM AIR. PER FILM DEVELOPER NURSE, PATIENT REFUSED AM MEDS. IV SITE PATENT AND INTACT. SKIN WARM, DRY, NOT INTACT. SAFETY PRECAUTION IN PLACE, CALL LIGHT WITHIN REACH. BED LOCKED IN LOW POSITION. WILL CONTINUE TO MONITOR PATIENT.
[2018-04-08] MEDS: glipiZIDE 10 MG TAB PO SCH ×2 (07:30→16:30)
--- NOTE | 2018-04-08 08:00 | NUR ---
PATIENT REFUSING VITAL SIGNS AT THE MOMENT, WANTS TO "BE LEFT ALONE TO SLEEP". WILL COME BACK.
--- NOTE | 2018-04-08 09:04 | NUR ---
PATIENT REQUESTING FOR COFFEE, INFORMED HIM OF HIS NPO STATUS FOR PROCEDURE. PATIENT SAID THAT HE DID NOT SIGN CONSENT FOR PROCEDURE, HE DOES NOT WANT ANY PROCEDURE. PATIENT REQUESTED FOR COFFEE. PAGED DR. SUBRAMANIAN AND FORWARDED PATIENT'S REQUEST. WAITING TO HEAR BACK.
--- NOTE | 2018-04-08 09:20 | NUR ---
DR. SUBRAMANIAN CALLED BACK, STATED THAT HAVE THE COMPUTER MECHANIC SPEAK TO THE PATIENT AND IF THE PATIENT DECIDES TO NOT CONSENT TO PROCEDURE, THEN TO CALL HIM BACK AND UPDATE HIM WITH THE NEWS.
[2018-04-08 09:30] VITALS: BP 137/77
[2018-04-08] MEDS: TIMOLOL OP 0.5% 5 ML BTL OP SCH ×2 (09:38→20:16)
[2018-04-08] MEDS: SERTRALINE 50 MG TAB PO SCH (09:39)
[2018-04-08] MEDS: FERROUS SULFATE 325 MG TABEC PO SCH (09:39)
[2018-04-08] MEDS: ARIPiprazole 10 MG TAB PO SCH (09:39)
[2018-04-08] MEDS: MAGNESIUM OXIDE 400 MG TAB PO SCH ×2 (09:39→20:15)
[2018-04-08] MEDS: ASPIRIN 81 MG TAB.CHEW PO SCH (09:39)
--- NOTE | 2018-04-08 09:40 | NUR ---
ORDERED MEDICATIONS GIVEN. PATIENT TOLERATED THEM WELL. BLOOD SUGAR 150. NO SIGNS OF DISTRESS OR SOB NOTED ON ROOM AIR. PATIENT IN STABLE CONDITION. REQUESTING FOR FOOD. INFORMED PATIENT THAT SEAMING MACHINE OPERATOR WILL COME TO SPEAK TO PATIENT ABOUT PROCEDURE, IF PATIENT REFUSES TO CONSENT, WE WILL GO FROM THERE. PATIENT VERBALIZED UNDERSTANDING.
[2018-04-08] MEDS: INSULIN LANTUS 100 UNITS/ML 10 ML VIAL SUBQ SCH (09:41)
--- NOTE | 2018-04-08 09:45 | NUR ---
CALLED RADIOLOGY AND SPOKE TO DEVANTE MEDINA, REQUESTED THAT SHE COME AND SPEAK TO PATIENT ABOUT PROCEDURE PER DR. SUBRAMANIAN'S REQUEST. SHE SAID THAT SHE WILL COME SPEAK TO HIM ONCE BED HUDDLE IS OVER. RN VERBALIZED UNDERSTANDING.
--- NOTE | 2018-04-08 10:10 | NUR ---
CALLED [facility] AND SPOKE WITH VIRAL IN ADMITTING. SHE SAID THEY ARE STILL LOOKING FOR A BED. SHE FAXED THE TRANSFER BACK AGREEMENT FORM WHICH I HAD FILLED OUT AND SIGNED AND SENT BACK TO HER AT [phone].
--- NOTE | 2018-04-08 10:20 | NUR ---
ADAM CORREA, CALLED, STATED THAT SHE SPOKE TO PATIENT AND HE VERBALIZED REFUSAL FOR ANY PROCEDURE. RN VERBALIZED UNDERSTANDING. CALLED DR. SUBRAMANIAN, UPDATED HIM WITH THE NEWS. DR SUBRAMANIAN IN TO SEE THE PATIENT. WILL AWAIT FOR HIS NEWS.
--- NOTE | 2018-04-08 10:30 | NUR ---
[facility] FOR [facility]. CALLED DIETARY AND LEFT VOICEMAIL ABOUT LATE BREAKFAST TRAY FOR PATIENT. BROUGHT PATIENT COFFEE REQUESTED.
--- NOTE | 2018-04-08 10:45 | NUR ---
CALLED DIETARY AGAIN TO FOLLOW UP WITH PATIENT'S LATE BREAKFAST, TAX AGENT MIKE ANSWER. TURKEY SANDWICH, ORANGE JUICE, AND COFFEE GIVEN TO PATIENT. PATIENT TOLERATING IT WELL. PATIENT STATED "THANK YOU". NO SIGNS OF DISTRESS OR SOB NOTED ON ROOM AIR. PATIENT HAS INTERMITTENT NON PRODUCTIVE COUGH. SAFETY PRECAUTION IN PLACE, CALL LIGHT WITHIN REACH, WILL CONTINUE TO MONITOR PATIENT.
--- NOTE | 2018-04-08 11:18 | NUR ---
RECEIVED PATIENT ON ROOM AIR, O2 SAT 93%. PATIENT DENIES SOB. NO TREATMENT INDICATED AT THIS TIME. NO RESPIRATORY DISTRESS NOTED AT THIS TIME. WILL CONTINUE TO MONITOR.
[2018-04-08 12:50] VITALS: BP 134/68
--- NOTE | 2018-04-08 12:55 | NUR ---
PATIENT BLOOD SUGAR 332, INSULIN COVERAGE GIVEN. PATIENT TOLERATED IT WELL. ASKED WHAT THE PLAN OF CARE IS. RN STATED SHE WILL CALL DIRECTOR OF INTEGRATED MARKETING AMDISON AND UPDATE PATIENT WHEN THERE ARE NEWS. PATIENT VERBALIZED UNDERSTANDIGN.
[2018-04-08] MEDS: INSULIN LISPRO SLIDING SCALE 100 UNITS/ML VIAL SUBQ PRN ×3 (13:31→20:23)
--- NOTE | 2018-04-08 14:12 | NUR ---
CALLED CREPING MACHINE OPERATOR HELPER MADISON, SHE STATED THAT PATIENT WILL BE TRANSFERRED TO [place] ONCE BED AVAILABLE . FORWARDED MESSAGE TO PATIENT. PATIENT VERBALIZED UNDERSTANDING.
--- NOTE | 2018-04-08 14:33 | NUR ---
CALLED [facility] AND SPOKE WITH AMIE. STILL WAITING FOR A BED. I INFORMED PATIENT.
--- NOTE | 2018-04-08 15:54 | NUR ---
CALLED [facility] AND SPOKE WITH AMIE. NO BED YET. I TOLD HER TO CALL THE FLOOR IF A BED BECOMES AVAILABLE. SHE IS TO CALL [phone]. JIAN BELLCOMMERCIAL LOAN SPECIALIST NURSE AWARE.
[2018-04-08 16:00] VITALS: BP 132/102
--- NOTE | 2018-04-08 17:22 | NUR ---
BLOOD SUGAR 193, BLOOD COVERAGE GIVEN. PATIENT ASKED TO SPEAK TO BASS STRING WINDER. ASKED MADISON TO SPEAK TO HIM, MADISON CAME TO TELL HIM OF THE PLAN. HE VERBALIZED UNDERSTANDING. WILL CONTINUE TO MONITOR PATIENT.
--- NOTE | 2018-04-08 19:26 | NUR ---
REPORT GIVEN TO AMPLIFIER MECHANIC NURSE AT BEDSIDE FOR CONTINUITY OF CARE. PATIENT IN STABLE CONDITION, PATIENT SLEEPING.
--- NOTE | 2018-04-08 19:27 | NUR ---
REPORT RECEIVED FROM DAY SHIFT NURSE KERRIE-RN AT BEDSIDE FOR CONTINUITY OF CARE. PT ASLEEP, IN STABLE CONDITION. AAOX3. IV SITE LEFT FA 22G- PATENT AND INTACT. ON ROOM AIR. DISCUSSED PLAN OF CARE AND PT VERBALIZED UNDERSTANDING. NO S/S OF RESPIRATORY DISTRESS OR DISCOMFORT NOTED AT THIS TIME. SKIN WARM, DRY, NOT INTACT. SCALP, LLE AND RIGHT ELBOW SCABS AND OPEN. SUTURE ON BACK- CHEST TUBE. SAFETY PRECAUTION IN PLACE, CALL LIGHT WITHIN REACH. BED LOCKED IN LOW POSITION. WILL CONTINUE TO MONITOR PATIENT.
--- NOTE | 2018-04-08 19:30 | NUR ---
BLOOD GLUCOSE 179-WILL ADMINISTER INSULIN COVERAGE.
[2018-04-08 20:00] VITALS: BP 139/65
--- NOTE | 2018-04-08 20:00 | NUR ---
VITAL SIGNS TAKEN AND TOLERATED WELL. NO S/S OF RESPIRATORY DISTRESS OR DISCOMFORT NOTED AT THIS TIME. WILL CONTINUE TO MONITOR.
[2018-04-08] MEDS: TAMSULOSIN 0.4 MG CAP PO SCH (20:15)
--- NOTE | 2018-04-08 20:20 | NUR ---
SCHEDULED MEDICATION GIVEN, INSULIN COVERAGE GIVEN AND TOLERATED WELL. NO S/S OF RESPIRATORY DISTRESS OR DISCOMFORT NOTED AT THIS TIME. PT RETURNED BACK TO SLEEP. WILL CONTINUE TO MONITOR.
--- NOTE | 2018-04-08 22:00 | NUR ---
PT CONTINUES TO SLEEP. NO S/S OF RESPIRATORY DISTRESS OR DISCOMFORT NOTED AT THIS TIME. WILL CONTINUE TO MONITOR.
[2018-04-09] VITALS: BP 143/75
--- NOTE | 2018-04-09 | NUR ---
VITAL SIGNS TAKEN AND TOLERATED WELL. NO S/S OF RESPIRATORY DISTRESS OR DISCOMFORT NOTED AT THIS TIME. PT RETURNED BACK TO SLEEP. WILL CONTINUE TO MONITOR.
--- NOTE | 2018-04-09 02:00 | NUR ---
PT CONTINUES TO SLEEP. NO S/S OF RESPIRATORY DISTRESS OR DISCOMFORT NOTED AT THIS TIME. WILL CONTINUE TO MONITOR.
--- NOTE | 2018-04-09 03:00 | NUR ---
PT OFF TELE, NOW TRANSFERRED TO MS. WILL CONTINUE TO MONITOR.
[2018-04-09] MEDS: CLINDAMYCIN PHOS 600MG/D5W PM 50 ML IV SCH ×2 (04:33→12:25)
--- NOTE | 2018-04-09 04:35 | NUR ---
SCHEDULED MEDICATION GIVEN AND TOLERATED WELL. NO S/S OF RESPIRATORY DISTRESS OR DISCOMFORT NOTED AT THIS TIME. WILL CONTINUE TO MONITOR.
[2018-04-09] MEDS: BLOOD GLUCOSE MONITORING 1 DEV DEV FS SCH ×2 (06:26→12:25)
[2018-04-09] MEDS: glipiZIDE 10 MG TAB PO SCH (06:31)
[2018-04-09] MEDS: PANTOPRAZOLE 40 MG TABEC PO SCH (06:31)
[2018-04-09] MEDS: INSULIN LISPRO SLIDING SCALE 100 UNITS/ML VIAL SUBQ PRN ×2 (06:34→13:10)
--- NOTE | 2018-04-09 06:35 | NUR ---
SCHEDULED MEDICATION GIVEN AND INSULIN COVERAGE GIVEN. PT TOLERATED WELL. NO S/S OF RESPIRATORY DISTRESS OR DISCOMFORT NOTED AT THIS TIME. WILL CONTINUE TO MONITOR.
[2018-04-09] MEDS: NACL 0.9% 1,000 ML IV SCH (06:40)
--- NOTE | 2018-04-09 07:19 | NUR ---
ENDORSED PT CARE TO DAY SHIFT NURSE FINA-ARABELLA FOR CONTINUITY OF CARE.
--- NOTE | 2018-04-09 07:20 | NUR ---
RECEIVED REPORT FROM BODY ARTIST RN. PATIENT HAS RIGHT BKA AND RIGHT EYE BLINDNESS. HARD OF HEARING. SCAB ON LEFT LEG AND RIGHT ELBOW. SCABS/CRUSTINESS ON SCALP. SUTURE ON LEFT BACK FROM CHEST TUBE WHICH HAD BEEN PULLED OUT BY PT. LUNGS CTA IN ALL MOSHER. HEART RHYTHM IS REGULAR. HEART RATE BORDERLINE LINE. BOWEL SOUNDS PRESENT IN ALL QUADRANTS. IV SITE PATENT AND RUNNING IVF PER MD ORDERS. ALL SAFETY MEASURES IN PLACE, WILL CONTINUE TO MONITOR.
[2018-04-09 07:33] LABS: BASOPHILS # (AUTO) 0.1 K/uL (0.00-0.22); EOSINOPHILS # (AUTO) 0.5 K/uL (0-0.4); EOSINOPHILS % (AUTO) 5.6 % (0.0-4.0); HEMATOCRIT 30.2 % (36-52); HEMOGLOBIN 9.7 g/dL (12.0-18.0); LYMPHOCYTES # (AUTO) 1.2 K/uL (2.0-11.5); LYMPHOCYTES % (AUTO) 14.2 % (20.5-51.1); MEAN CORPUSCULAR HEMOGLOBIN 25 pg (27-31); MEAN CORPUSCULAR HGB CONC 32 g/dL (33-37); MEAN CORPUSCULAR VOLUME 77.7 fL (80-94); MONOCYTES # (AUTO) 0.7 K/uL (0.8-1.0); MONOCYTES % (AUTO) 8.8 % (1.7-9.3); NEUTROPHILS % (AUTO) 70.4 % (42.2-75.2); PLATELET COUNT (AUTO) 390 K/uL (140-450); RED BLOOD CELL COUNT(AUTO) 3.88 MIL/uL (4.20-6.10); RED CELL DISTRIBUTION WIDTH 14.7 % (11.6-13.7); WHITE BLOOD COUNT (AUTO) 8.5 K/uL (4.8-10.8)
[2018-04-09 07:41] LABS: ANION GAP 10.7 (8-16); CARBON DIOXIDE 26.9 mmol/L (21-32); CREATININE 0.9 mg/dL (0.7-1.3); POTASSIUM 3.6 mmol/L (3.5-5.1)
--- NOTE | 2018-04-09 07:41 | NUR ---
PT REFUSING TO WEAR O2 SPO2 ON ROOM AIR 90%. PT NOT SOB AND NOT IN RESPIRATORY DISTRESS AT THIS TIME.
[2018-04-09 08:00] VITALS: BP 140/66
[2018-04-09] MEDS ORDERED: CLIN150C1 IV (08:41)
--- NOTE | 2018-04-09 09:12 | NUR ---
CALLED [facility] AND SPOKE WITH DECEMBER. NO BEDS AT PRESENT.
[2018-04-09] MEDS: SERTRALINE 50 MG TAB PO SCH (09:41)
[2018-04-09] MEDS: FERROUS SULFATE 325 MG TABEC PO SCH (09:41)
[2018-04-09] MEDS: ARIPiprazole 10 MG TAB PO SCH (09:41)
[2018-04-09] MEDS: ASPIRIN 81 MG TAB.CHEW PO SCH (09:41)
[2018-04-09] MEDS: MAGNESIUM OXIDE 400 MG TAB PO SCH (09:42)
[2018-04-09] MEDS: INSULIN LANTUS 100 UNITS/ML 10 ML VIAL SUBQ SCH (09:45)
[2018-04-09] MEDS: TIMOLOL OP 0.5% 5 ML BTL OP SCH (09:50)
--- NOTE | 2018-04-09 09:50 | NUR ---
SCHEDULED MEDICATIONS GIVEN PER MD ORDERS. PT IN STABLE CONDITION WITH ALL SAFETY MEASURES IN PLACE. WILL CONTINUE TO MONITOR.
--- NOTE | 2018-04-09 10:00 | NUR ---
Hand Mica Plate Layer Notes: I Faxed [facility] ([facility] at Patient's Clinical Information, MD Orders for IV antibiotics.
--- NOTE | 2018-04-09 11:16 | NUR ---
CALLED [facility] AND SPOKE WITH KRISTINE. SHE SAID THEY WILL PROBABLY HAVE A BED, THEY ARE CALLING IN AN HOGSHEAD MAT INSPECTOR NURSE. I CALL DR. SUBRAMANIAN AND INFORMED HIM.
--- NOTE | 2018-04-09 11:31 | NUR ---
DR. SUBRAMANIAN CALLED. THEY PATIENT WILL BE GOING BACK TO [facility]AND [facility]CEL [facility]. I CALLED [facility] AND SPOKE WITH AMIE AND CANCELED THE TRANSFER TO [facility].
--- NOTE | 2018-04-09 12:25 | NUR ---
SCHEDULED ABX ADMINISTERED PER MD ORDERS. PT IN STABLE CONDITION. CONTINUES TO REFUSE TRANSFER TO [facility].
--- NOTE | 2018-04-09 12:47 | NUR ---
CALLED [facility] AND SPOKE WITH JEFFRY AND SCHEDULED A W/C TRANSPORT FOR PT TO RETURN [facility] ROOM [facility]B AND WELDING MACHINE OPERATOR ARC SCHEDULED FOR 1630. ASSIGNED NURSE FINA INFORMED
--- NOTE | 2018-04-09 12:56 | NUR ---
Mold Inspector notes: I called [facility] at I spoke to Andrei to confirmed Patient's discharge from [facility] and arrange for Patient to return [place] today. Andrei Confirmed getting Patient's updated Clinical documentation faxed to her by these marine underwriter. She also stated that Patient can return to their facility at room [address] with accepting Dr. Barahona after 3:00pm. I thanked Andrei for the information and I ended the call. Muffler Installer Annika and beam department supervisor Phoebe made aware.
--- NOTE | 2018-04-09 15:30 | NUR ---
CALLED [facility] FOR REPORT. REPORT GIVEN TO QIANA. COMMUNICATED THE NEED FOR FURTHER IV CLINDAMYCIN FOR AT LEAST 10 DAYS AND CONTINUED WOUND CARE. DISCUSSED PATIENT REFUSAL FOR HIGHER LEVEL OF CARE FOR EMPYEMA. ID BANDS REMOVED. IV SITE LEFT IN PLACE. PATIENT IN STABLE CONDITION FOR TRANSFER ALL DISCHARGE PAPERWORK AND PERSONAL BELONGINGS ARE WITH PATIENT.
--- NOTE | 2018-04-09 16:55 | NUR ---
DISCHARGE INSTRUCTIONS, INCLUDING PLANS TO FOLLOW UP WITH DR. OJEDA AT [facility] AND PLAN FOR CONTINUED IV ABX AND WOUND CARE, COMMUNICATED TO PATIENT. PATIENT VERBALIZED UNDERSTANDING, FURTHER REINFORCEMENT NEEDED DUE TO HARD OF HEARING. LEFT MESSAGE FOR SON, ALBARO PÉREZ, REGARDING FATHER'S TRANSFER TO [facility] FOR CONTINUED CARE. MEDICATION TEACHING GIVEN. PT IN STABLE CONDITION. [facility] HERE WITH WHEELCHAIR AND WILL TAKE PT TO [facility]. PHOTOS TAKEN OF WOUNDS, PLACED IN PT CHART. ID BANDS REMOVED. IV SITE LEFT IN PLACE FOR CONTINUED IV ABX.
== END 2018-04-09 16:55 | DRG 177 ==
LOC: MED 08:37 → MTU 10:27
PROVIDERS: ADMIT General Practice; ATTEND General Practice
DX: J69.0 Pneumonitis due to inhalation of food and vomit (principal); J86.9 Pyothorax without fistula; E43 Unspecified severe protein-calorie malnutrition; D68.59 Other primary thrombophilia; E11.65 Type 2 diabetes mellitus with hyperglycemia; E83.42 Hypomagnesemia; K21.9 Gastro-esophageal reflux disease without esophagitis; E02 Subclinical iodine-deficiency hypothyroidism; E78.5 Hyperlipidemia, unspecified; I10 Essential (primary) hypertension; F70 Mild intellectual disabilities; E11.69 Type 2 diabetes mellitus with other specified complication; D50.9 Iron deficiency anemia, unspecified; E83.51 Hypocalcemia; N13.9 Obstructive and reflux uropathy, unspecified; H54.61 Unqualified visual loss, right eye, normal vision left eye; E11.51 Type 2 diabetes mellitus with diabetic peripheral angiopathy without gangrene; F03.90 Unspecified dementia, unspecified severity, without behavioral disturbance, psychotic disturbance, mood disturbance, and anxiety; S00.01XA Abrasion of scalp, initial encounter; X58.XXXA Exposure to other specified factors, initial encounter; H40.10X0 Unspecified open-angle glaucoma, stage unspecified; F43.23 Adjustment disorder with mixed anxiety and depressed mood; Z89.511 Acquired absence of right leg below knee; Z88.0 Allergy status to penicillin; Z87.891 Personal history of nicotine dependence; Z87.01 Personal history of pneumonia (recurrent); Z88.1 Allergy status to other antibiotic agents; Z88.8 Allergy status to other drugs, medicaments and biological substances; Z79.899 Other long term (current) drug therapy; Y93.89 Activity, other specified; Y92.89 Other specified places as the place of occurrence of the external cause; Y99.8 Other external cause status
CPT/HCPCS: 36415; 71045; 71270; 76604; 80048; 80053; 82150; 82948; 83036; 83690; 83735; 83880; 84100; 84436; 84439; 84443; 84479; 84484; 85025; 85610; 85730; 87081; 93005; 93970; 94640; 99285; J1815; J1956; J3370; J3490; J7030; J7620; Q0092; Q9967